=== PATIENT | female | born 1955 | race African-American/Black ===

== ENCOUNTER 2017-04-01 11:36 | Inpatient (IN) | payer OTHER ==
[2017-04-01 17:08] VITALS: BMI 23.6
--- NOTE | 2017-04-01 17:36 | HP ---
CIWA Score - CIWA Score Nausea/Vomitin-No Nausea/No Vomiting Muscle Tremors: 4-Moderate,w/Arms Extend Anxiety: 4-Mod. Anxious/Guarded Agitation: 4-Moderately Restless Paroxysmal Sweats: 1-Minimal Palms Moist Orientation: 0-Oriented Tacttile Disturbances: 3-Moderate Itch/Numb/Burn Auditory Disturbances: 0-None Visual Disturbances: 0-None Headache: 2-Mild CIWA-Ar Total Score: 18 Admission ROS S - HPI Chief Complaint: ALCOHOL WITHDRAWAL SX Allergies/Adverse Reactions: Allergies Allergy/AdvReac Type Severity Reaction Status Date / Time azithromycin [From Zithromax] AdvReac Severe Verified 04/01/17 17:10 erythromycin base AdvReac Severe Vomiting Verified 10/07/14 19:28 History of Present Illness: 61 Y/O AA/FEMALE WITH A HX OF ALCOHOL AND COCAINE DEPENDENCE SEEKING DETOX [place]. Exam Limitations: No Limitations - Ebola screening Have you traveled outside of the country in the last 21 days: No Have you had contact with anyone from an Ebola affected area: No Have you been sick,other than usual withdrawal symptoms: No - Review of Systems Constitutional: Chills, Loss of Appetite, Night Sweats, Changes in sleep, Unintentional Wgt. Loss EENT: reports: Blurred Vision (WEARS GLASSES), Tearing, Nose Congestion, Dental Problems (WEARS DENTURES) Respiratory: reports: No Symptoms reported Cardiac: reports: Chest Pain ("USING TOO MUCH DRUGS"), Other (REPORTS HX SYSTOLIC MURMUR) GI: reports: Constipated, Diarrhea, Nausea, Poor Fluid Intake, Vomiting, Abdominal cramping : reports: No Symptoms Reported Musculoskeletal: reports: Back Pain, Joint Pain, Muscle Pain Integumentary: reports: Bruising (FROM FALLING DOWN IN THE PAST) Neuro: reports: Tremors, Unsteady Gait Endocrine: reports: No Symptoms Reported Hematology: reports: Anemia ("I'M BORDERLINE ANEMIC".) Psychiatric: reports: Orientated x3, Depressed Other Systems: Reviewed and Negative Patient History - Patient Medical History Hx Anemia: Yes Hx Asthma: No Hx Chronic Obstructive Pulmonary Disease (COPD): No Hx Cancer: No Hx Cardiac Disorders: No Hx Congestive Heart Failure: No Hx Hypertension: No Hx Hypercholesterolemia: No Hx Pacemaker: No HX Cerebrovascular Accident: No Hx Seizures: No Hx Dementia: No Hx Diabetes: No Hx Gastrointestinal Disorders: No Hx Liver Disease: No Hx Genitourinary Disorders: No Hx Sexually Transmitted Disorders: Yes (GONORRHEA, SYPHILIS, GENITAL HERPES AND HPV HX) Hx Renal Disease (ESRD): No Hx Thyroid Disease: No Hx Human Immunodeficiency Virus (HIV): Yes (since 1998-[place]) Hx Hepatitis C: No Hx Depression: No Hx Suicide Attempt: No Hx Bipolar Disorder: No Hx Schizophrenia: No - Patient Surgical History Past Surgical History: Yes Hx Neurologic Surgery: No Hx Cataract Extraction: No Hx Cardiac Surgery: No Hx Lung Surgery: No Hx Breast Surgery: No Hx Breast Biopsy: No Hx Abdominal Surgery: No Hx Appendectomy: No Hx Cholecystectomy: Yes (cholecystectomy at age 3 months) Hx Genitourinary Surgery: No Hx Section: No Hx Orthopedic Surgery: No Anesthesia Reaction: No - PPD History Previous Implant?: Yes Documented Results: Positive w/o proof Implanted On Prior [facility] Admission?: No Results: CXR TBD PPD to be Administered?: No - Reproductive History Patient is a Female of Child Bearing Age (11 -55 yrs old): Yes LMP comment: AT 56 YRS OLD Patient : No - Smoking Cessation Smoking history: Current some day smoker Have you smoked in the past 12 months: Yes Aproximately how many cigarettes per day: 10 Cigars Per Day: 0 Hx Chewing Tobacco Use: No Initiated information on smoking cessation: Yes 'Breaking Loose' booklet given: 04/01/17 - Substance & Tx. History Hx Alcohol Use: Yes (COGNAC/BEER) Hx Substance Use: Yes (COCAINE) Substance Use Type: Alcohol, Cocaine Hx Substance Use Treatment: Yes (LAST TX AT [facility] - Substances Abused Alcohol Route: Oral Frequency: Daily Amount used: 2 6pks beer/ 1 pint Age of first use: 10 Date of Last Use: 04/01/17 Cocaine Route: Smoking Frequency: 1-2 times per week Amount used: $200 Age of first use: 46 Date of Last Use: 04/01/17 Family Disease History - Family Disease History Family Disease History: Other: Father (alcohol,), Brother (alcohol), Sister (alcohol,) Admission Physical Exam [facility] - Vital Signs Vital Signs: Vital Signs - 24 hr 04/01/17 17:05 Temperature 97.4 F L Pulse Rate 76 Respiratory 20 Rate Blood Pressure 119/62 - Physical General Appearance: Yes: Irritable, Anxious HEENTM: Yes: EOMI, Normocephalic, YAHIR, Pharynx Normal Respiratory: Yes: Chest Non-Tender, Lungs Clear, Normal Breath Sounds, No Respiratory Distress Neck: Yes: No masses,lesions,Nodules, Supple, Trachea in good position Breast: Yes: Breast Exam Deferred Cardiology: Yes: Regular Rhythm, Regular Rate, S1, S2 Abdominal: Yes: Normal Bowel Sounds, Non Tender, Soft Genitourinary: Yes: Other Back: Yes: Within Normal Limits Musculoskeletal: Yes: full range of Motion, Gait Steady Extremities: Yes: Normal Range of Motion, Non-Tender, Tremors 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, Fully Oriented, Alert Integumentary: Yes: Dry, Warm Lymphatic: Yes: Within Normal Limits - Diagnostic (1) Nicotine dependence Current Visit: Yes Status: Acute Qualifiers: Nicotine product type: cigarettes Substance use status: in withdrawal Qualified Code(s): F17.213 - Nicotine dependence, cigarettes, with withdrawal (2) history of genital herpes Current Visit: Yes Status: Chronic (3) Alcohol dependence with uncomplicated withdrawal Current Visit: Yes Status: Acute (4) Cocaine dependence, uncomplicated Current Visit: Yes Status: Acute (5) HIV (human immunodeficiency virus infection) Current Visit: Yes Status: Chronic (6) History of anemia Current Visit: Yes Status: Suspected Cleared for Admission [facility] - Detox or Rehab [facility] Level of Care: Medically Managed Detox Regimen/Protocol: Librium [facility] Breath Alcohol Content Breath Alcohol Content: 0 Urine Pregancy Test - Result Urine Test Results: Negative- NO Line Present Urine Drug Screen - Results Drug Screen Negative: No Urine Drug Screen Results: JELANI-Cocaine
[2017-04-01] MEDS ORDERED: NICOTINE POLACRILEX 2 MG GUM BC PRN (17:45)
[2017-04-01] MEDS ORDERED: MENTHOL/PHENOL 1 EACH UD MM PRN (17:45)
[2017-04-01] MEDS ORDERED: LOPERAMIDE HCL 2 MG CAPSULE PO PRN (17:45)
[2017-04-01] MEDS ORDERED: ACETAMINOPHEN 325 MG TABLET (FP) PO PRN (17:45)
[2017-04-01] MEDS ORDERED: MAG HYDROX/AL HYDROX/SIMETH 30 ML UNIT-DOSE CUP PO PRN (17:45)
[2017-04-01] MEDS ORDERED: P-EPHED 60MG/TRIPROLIDI 2.5MG TABLET PO PRN (17:45)
[2017-04-01] MEDS ORDERED: MAGNESIUM HYDROX 2400MG/30ML ORAL SUSPENSION 30 ML CUP PO PRN (17:45)
[2017-04-01] MEDS ORDERED: MAGNESIUM CITRATE 300 ML BOTTLE PO PRN (17:45)
[2017-04-01] MEDS ORDERED: chlordiazePOXIDE HCL 25 MG CAPSULE PO PRN (17:45)
[2017-04-01] MEDS ORDERED: guaiFENesin/D-METHORPHAN HB 10 ML UNIT-DOSE CUPS PO PRN (17:45)
[2017-04-01] MEDS ORDERED: IBUPROFEN 400 MG TABLET (FP) PO PRN (17:45)
[2017-04-01] MEDS: NICOTINE 14 MG/24 HOURS TOPICAL PATCH TD SCH (18:58)
[2017-04-01] MEDS ORDERED: chlordiazePOXIDE HCL 25 MG CAPSULE PO ONE (19:00)
[2017-04-01] MEDS: THIAMINE HCL 100 MG TABLET (FP) PO SCH (22:25)
[2017-04-01] MEDS: chlordiazePOXIDE HCL 25 MG CAPSULE PO SCH (22:26)
[2017-04-02] MEDS: chlordiazePOXIDE HCL 25 MG CAPSULE PO SCH ×4 (05:43→22:24)
[2017-04-02 09:54] LABS: HEMATOCRIT 38.4 % (32.4-45.2); HEMOGLOBIN 12.2 GM/dL (10.7-15.3); MCH 29.7 pg (25.7-33.7); MCHC 31.9 g/dl (32.0-36.0); MEAN PLT VOLUME 9.2 fl (7.5-11.1); PLATELET COUNT 248 K/MM3 (134-434); RBC 4.13 M/mm3 (3.60-5.2); WHITE BLOOD COUNT 3.4 K/mm3 (4.0-10.0)
[2017-04-02 10:06] LABS: CHLORIDE 106 mmol/L (98-107); POTASSIUM 3.8 mmol/L (3.5-5.1); SODIUM 142 mmol/L (136-145)
[2017-04-02] MEDS: valACYclovir HCL 500 MG TABLET (FP) PO SCH (10:35)
[2017-04-02] MEDS: PRENATAL VITAMINS W/ FOLIC ACID TABLET (FP) PO SCH (10:35)
[2017-04-02 10:37] LABS: ALK PHOS 81 U/L (45-117); ANION GAP 8 (8-16); BILIRUBIN,TOTAL 0.7 mg/dL (0.2-1.0); BLOOD UREA NITROGEN 16 mg/dL (7-18); CALCIUM 8.6 mg/dL (8.5-10.1); CO2 28 mmol/L (21-32); GLUCOSE,RANDOM 138 mg/dL (74-106); SGOT/AST 14 U/L (15-37); SGPT/ALT 18 U/L (12-78); TOT PROT 6.5 g/dl (6.4-8.2)
[2017-04-02] MEDS: NICOTINE 14 MG/24 HOURS TOPICAL PATCH TD SCH (10:37)
--- NOTE | 2017-04-02 10:56 | PN ---
S CIWA - CIWA Score Nausea/Vomitin-No Nausea/No Vomiting Muscle Tremors: 4-Moderate,w/Arms Extend Anxiety: 3 Agitation: 3 Paroxysmal Sweats: 3 Orientation: 0-Oriented Tacttile Disturbances: 0-None Auditory Disturbances: 0-None Visual Disturbances: 0-None Headache: 1-Very Mild CIWA-Ar Total Score: 14 S Progress Note (SOAP) Subjective: body aches sweats shakes interrupted sleep body aches irritable sore Objective: 04/02/17 10:55 Vital Signs Temperature 97.9 F 04/02/17 09:49 Pulse Rate 79 04/02/17 09:49 Respiratory Rate 20 04/02/17 09:49 Blood Pressure 103/59 04/02/17 09:49 O2 Sat by Pulse Oximetry (%) Laboratory Tests 04/02/17 04/02/17 07:00 07:00 WBC 3.4 L RBC 4.13 Hgb 12.2 Hct 38.4 MCV 93.0 MCH 29.7 MCHC 31.9 L RDW 14.0 Plt Count 248 D MPV 9.2 Sodium 142 Potassium 3.8 Chloride 106 Carbon Dioxide 28 Anion Gap 8 BUN 16 Creatinine 1.0 Creat Clearance w eGFR 56.00 Random Glucose 138 H Calcium 8.6 Total Bilirubin 0.7 D AST 14 L D ALT 18 D Alkaline Phosphatase 81 D Total Protein 6.5 Albumin 3.0 L labs pending aaox3 ambulating no acute distress Assessment: 04/02/17 10:56 withdrawal sx Plan: increase fluids continue medication mycelex troches throat lozenges labs pending
[2017-04-02] MEDS ORDERED: FLU VACCINE QUAD 60 MCG/0.5 ML (MDV 17-18) IM ONE (12:00)
[2017-04-02] MEDS ORDERED: PNEUMOC 13-VAL CONJ-DIP CRM/PF 0.5 ML DISP.SYRIN IM ONE (12:00)
[2017-04-02 13:18] LABS: URINE APPEARANCE CLOUDY; URINE BILIRUBIN NEGATIVE (NEGATIVE); URINE BLOOD NEGATIVE (NEGATIVE); URINE COLOR DKYELLOW; URINE GLUCOSE (UA) NEGATIVE (NEGATIVE); URINE KETONE NEGATIVE (NEGATIVE); URINE LEUK ESTERASE NEGATIVE (NEGATIVE); URINE NITRITE POSITIVE (NEGATIVE); URINE PROTEIN NEGATIVE (NEGATIVE)
[2017-04-02 13:35] LABS: EPI CELLS MODERATE /HPF (FEW); URINE BACTERIA MANY /hpf (NONE SEEN); URINE MUCUS RARE; YEAST FEW
--- NOTE | 2017-04-02 14:30 | EKG ---
Test Reason : Blood Pressure : / mmHG Vent. Rate : 069 BPM Atrial Rate : 069 BPM P-R Int : 178 ms QRS Dur : 080 ms QT Int : 426 ms P-R-T Axes : 079 070 066 degrees QTc Int : 456 ms NORMAL SINUS RHYTHM NORMAL ECG NO PREVIOUS ECGS AVAILABLE Confirmed by MIGUEL DIAZ, SAMARA ([id number]) on 04/02/2017 2:30:38 PM Referred By: Confirmed By:SAMARA RIVERA MD
[2017-04-02] MEDS: CLOTRIMAZOLE 10 MG TROCHE (FP) PO SCH ×3 (14:48→22:24)
[2017-04-02] MEDS: THIAMINE HCL 100 MG TABLET (FP) PO SCH (22:24)
[2017-04-03] MEDS: chlordiazePOXIDE HCL 25 MG CAPSULE PO SCH ×3 (06:23→17:53)
[2017-04-03] MEDS: CLOTRIMAZOLE 10 MG TROCHE (FP) PO SCH ×5 (07:07→22:35)
[2017-04-03] MEDS: valACYclovir HCL 500 MG TABLET (FP) PO SCH (10:42)
[2017-04-03] MEDS: PRENATAL VITAMINS W/ FOLIC ACID TABLET (FP) PO SCH (10:42)
[2017-04-03] MEDS: NICOTINE 14 MG/24 HOURS TOPICAL PATCH TD SCH (10:43)
[2017-04-03] MEDS ORDERED: LIDOCAINE VISCOUS 2% ORAL/TOP 20 ML UNIT-DOSE CUP MM PRN (12:27)
--- NOTE | 2017-04-03 12:27 | PN ---
[facility] CIWA - CIWA Score Nausea/Vomitin Muscle Tremors: 2 Anxiety: 3 Agitation: 2 Paroxysmal Sweats: 3 Orientation: 0-Oriented Tacttile Disturbances: 2-Mild Itch/Numbness/Burn Auditory Disturbances: 0-None Visual Disturbances: 0-None Headache: 0-None Present CIWA-Ar Total Score: 14 [facility] Progress Note (SOAP) Subjective: interrupted sleep, sweats, diarrhea, sorethroat Objective: 04/03/17 12:25 Vital Signs Temperature 98.1 F 04/03/17 09:48 Pulse Rate 87 04/03/17 09:48 Respiratory Rate 18 04/03/17 09:48 Blood Pressure 108/70 04/03/17 09:48 O2 Sat by Pulse Oximetry (%) Laboratory Tests 04/01/17 04/02/17 04/02/17 11:40 07:00 07:00 WBC 3.4 L RBC 4.13 Hgb 12.2 Hct 38.4 MCV 93.0 MCH 29.7 MCHC 31.9 L RDW 14.0 Plt Count 248 D MPV 9.2 Sodium 142 Potassium 3.8 Chloride 106 Carbon Dioxide 28 Anion Gap 8 BUN 16 Creatinine 1.0 Creat Clearance w eGFR 56.00 Random Glucose 138 H Calcium 8.6 Total Bilirubin 0.7 D AST 14 L D ALT 18 D Alkaline Phosphatase 81 D Total Protein 6.5 Albumin 3.0 L Urine Color Dkyellow Urine Appearance Cloudy Urine pH 5.0 Ur Specific [place] 1.019 Urine Protein Negative Urine Glucose (UA) Negative Urine Ketones Negative Urine Blood Negative Urine Nitrite Positive Urine Bilirubin Negative Urine Urobilinogen 2.0 H Ur Leukocyte Esterase Negative Urine WBC (Auto) <1 Urine RBC (Auto) 3 Ur Epithelial Cells Moderate Urine Bacteria Many Urine Mucus Rare Urine Yeast Few RPR Titer 04/02/17 07:00 WBC RBC Hgb Hct MCV MCH MCHC RDW Plt Count MPV Sodium Potassium Chloride Carbon Dioxide Anion Gap BUN Creatinine Creat Clearance w eGFR Random Glucose Calcium Total Bilirubin AST ALT Alkaline Phosphatase Total Protein Albumin Urine Color Urine Appearance Urine pH Ur Specific [place] Urine Protein Urine Glucose (UA) Urine Ketones Urine Blood Urine Nitrite Urine Bilirubin Urine Urobilinogen Ur Leukocyte Esterase Urine WBC (Auto) Urine RBC (Auto) Ur Epithelial Cells Urine Bacteria Urine Mucus Urine Yeast RPR Titer Nonreactive pt aox3 in nad ambulating oral mild erythema , no exudates Assessment: 04/03/17 12:26 withdrawal sx's sorethroat Plan: cont. detox increase fluids viscous lidocaine
[2017-04-03] MEDS: THIAMINE HCL 100 MG TABLET (FP) PO SCH (22:36)
[2017-04-03] MEDS: chlordiazePOXIDE 5 MG CAPSULE PO SCH (22:36)
[2017-04-04] MEDS: chlordiazePOXIDE 5 MG CAPSULE PO SCH ×3 (06:19→17:46)
[2017-04-04] MEDS: CLOTRIMAZOLE 10 MG TROCHE (FP) PO SCH ×5 (06:20→22:33)
--- NOTE | 2017-04-04 09:37 | PN ---
[facility] Progress Note (SOAP) Subjective: nasuea, sweats, interrupetd sleep, anxiety, slight tremor - requesting rehabat [facility] tomorrow when discharged Objective: 04/04/17 09:35 Vital Signs - 24 hr 04/03/17 04/03/17 04/03/17 09:48 13:35 17:36 Temperature 98.1 F 97.3 F L 98.6 F Pulse Rate 87 87 878 H Respiratory 18 18 18 Rate Blood Pressure 108/70 115/64 105/50 04/03/17 04/04/17 04/04/17 22:07 00:30 03:30 Temperature 97.9 F Pulse Rate 88 Respiratory 18 18 18 Rate Blood Pressure 117/86 04/04/17 06:24 Temperature 97.9 F Pulse Rate 89 Respiratory 18 Rate Blood Pressure 108/71 Laboratory Tests 04/01/17 04/02/17 04/02/17 11:40 07:00 07:00 WBC 3.4 L RBC 4.13 Hgb 12.2 Hct 38.4 MCV 93.0 MCH 29.7 MCHC 31.9 L RDW 14.0 Plt Count 248 D MPV 9.2 Sodium 142 Potassium 3.8 Chloride 106 Carbon Dioxide 28 Anion Gap 8 BUN 16 Creatinine 1.0 Creat Clearance w eGFR 56.00 Random Glucose 138 H Calcium 8.6 Total Bilirubin 0.7 D AST 14 L D ALT 18 D Alkaline Phosphatase 81 D Total Protein 6.5 Albumin 3.0 L Urine Color Dkyellow Urine Appearance Cloudy Urine pH 5.0 Ur Specific [place] 1.019 Urine Protein Negative Urine Glucose (UA) Negative Urine Ketones Negative Urine Blood Negative Urine Nitrite Positive Urine Bilirubin Negative Urine Urobilinogen 2.0 H Ur Leukocyte Esterase Negative Urine WBC (Auto) <1 Urine RBC (Auto) 3 Ur Epithelial Cells Moderate Urine Bacteria Many Urine Mucus Rare Urine Yeast Few RPR Titer 04/02/17 07:00 WBC RBC Hgb Hct MCV MCH MCHC RDW Plt Count MPV Sodium Potassium Chloride Carbon Dioxide Anion Gap BUN Creatinine Creat Clearance w eGFR Random Glucose Calcium Total Bilirubin AST ALT Alkaline Phosphatase Total Protein Albumin Urine Color Urine Appearance Urine pH Ur Specific [place] Urine Protein Urine Glucose (UA) Urine Ketones Urine Blood Urine Nitrite Urine Bilirubin Urine Urobilinogen Ur Leukocyte Esterase Urine WBC (Auto) Urine RBC (Auto) Ur Epithelial Cells Urine Bacteria Urine Mucus Urine Yeast RPR Titer Nonreactive Assessment: 04/04/17 09:36 withdrawal sx, low alb /malnourished 2/2 substance use and chronic disease, fluids, ensure cont detox, if bed is nto available in rehab we can keep her an additional day until bed available fo observation after detox is completed.
[2017-04-04] MEDS: PRENATAL VITAMINS W/ FOLIC ACID TABLET (FP) PO SCH (10:28)
[2017-04-04] MEDS: valACYclovir HCL 500 MG TABLET (FP) PO SCH (10:28)
[2017-04-04] MEDS: NICOTINE 14 MG/24 HOURS TOPICAL PATCH TD SCH (10:28)
[2017-04-04] MEDS ORDERED: SIMETHICONE 80 MG TAB.CHEW (FP) PO PRN (17:41)
--- NOTE | 2017-04-04 17:44 | PN ---
[facility] Progress Note Note: received nurse call that the patient has gas gas xl
[2017-04-04] MEDS: THIAMINE HCL 100 MG TABLET (FP) PO SCH (22:33)
[2017-04-04] MEDS: chlordiazePOXIDE HCL 10 MG CAPSULE PO SCH (22:33)
[2017-04-04] MEDS: RANITIDINE HCL 150 MG TABLET (FP) PO SCH (22:33)
[2017-04-05] MEDS: chlordiazePOXIDE HCL 10 MG CAPSULE PO SCH ×2 (05:20→10:58)
[2017-04-05] MEDS: CLOTRIMAZOLE 10 MG TROCHE (FP) PO SCH ×2 (05:30→10:58)
--- NOTE | 2017-04-05 09:30 | DS ---
[facility] Detox Discharge Summary Admission Date: 04/01/17 Discharge Date: 04/05/17 - History Present History: Alcohol Dependence, Cocaine Dependence Additional Comments: follow up with after care program as arrangement Pertinent Past History: hiv nicotine dependence history of anemia history of genital herpes - Physical Exam Results Vital Signs: Vital Signs Temperature 97.7 F 04/05/17 06:55 Pulse Rate 71 04/05/17 06:55 Respiratory Rate 16 04/05/17 06:55 Blood Pressure 91/54 04/05/17 06:55 O2 Sat by Pulse Oximetry (%) Pertinent Admission Physical Exam Findings: withdrawal symptom - Treatment Hospital Course: Detox Protocol Followed, Detoxed Safely, Responded well, Discharged Condition Good, Rehab Referral Accepted Patient has Accepted a Rehab Referral to: [facility] - Medication Discharge Medications: Ambulatory Orders Emtricitab/Rilpiviri/Tenof Ala [Odefsey Tablet] 1 each PO DAILY 04/01/17 Valacyclovir HCl [Valtrex -] 500 mg PO DAILY 04/01/17 - Diagnosis (1) Alcohol dependence with uncomplicated withdrawal Current Visit: Yes Status: Acute (2) Cocaine dependence, uncomplicated Current Visit: Yes Status: Acute (3) Nicotine dependence Current Visit: Yes Status: Acute Qualifiers: Nicotine product type: cigarettes Substance use status: in withdrawal Qualified Code(s): F17.213 - Nicotine dependence, cigarettes, with withdrawal (4) HIV (human immunodeficiency virus infection) Current Visit: Yes Status: Chronic (5) history of genital herpes Current Visit: Yes Status: Chronic (6) History of anemia Current Visit: Yes Status: Suspected (7) Weight decreased Current Visit: No Status: Active - AMA Did Patient Leave Against Medical Advice: No
[2017-04-05 10:06] VITALS: BP 97/62; PULSE 74; TEMP 98.2
[2017-04-05] MEDS: RANITIDINE HCL 150 MG TABLET (FP) PO SCH (10:57)
[2017-04-05] MEDS: valACYclovir HCL 500 MG TABLET (FP) PO SCH (10:57)
[2017-04-05] MEDS: NICOTINE 14 MG/24 HOURS TOPICAL PATCH TD SCH (10:58)
[2017-04-05] MEDS: PRENATAL VITAMINS W/ FOLIC ACID TABLET (FP) PO SCH (10:58)
== END 2017-04-05 11:06 | disposition home or self-care (01) | DRG 774 ==
LOC: YASAS 11:36 → Y6N 17:55
PROVIDERS: ADMIT Internal Medicine; ATTEND Internal Medicine
PROC: HZ2ZZZZ Detoxification Services for Substance Abuse Treatment (ICD-10-PCS; principal; 2017-04-01)
DX: F10.230 Alcohol dependence with withdrawal, uncomplicated (principal); F14.20 Cocaine dependence, uncomplicated; Z21 Asymptomatic human immunodeficiency virus [HIV] infection status; R63.4 Abnormal weight loss; Z68.23 Body mass index [BMI] 23.0-23.9, adult; Z87.42 Personal history of other diseases of the female genital tract; Z86.2 Personal history of diseases of the blood and blood-forming organs and certain disorders involving the immune mechanism
CPT/HCPCS: 36415; 71020-TC; 80053; 81003; 81015; 85027; 86593; 90670; 90688; 93005; 93010; G0008; G0009

== ENCOUNTER 2018-12-03 11:04 | Inpatient (IN) | payer OTHER ==
[2018-12-03 12:33] VITALS: BMI 25.2
--- NOTE | 2018-12-03 13:53 | HP ---
"CIWA Score Nausea/Vomitin-No Nausea/No Vomiting Muscle Tremors: 4-Moderate,w/Arms Extend Anxiety: 3 Agitation: 4-Moderately Restless Paroxysmal Sweats: 3 (Increased facial moisture) Orientation: 0-Oriented Tacttile Disturbances: 0-None Auditory Disturbances: 0-None Visual Disturbances: 0-None Headache: 0-None Present CIWA-Ar Total Score: 14 - Admission Criteria OAS Guidelines: Admission for Medically Managed Detox: Requires at least one of the followin. CIWA greater than 12 2. Seizures within the past 24 hours 3. Delirium tremens within the past 24 hours 4. Hallucinations within the past 24 hours 5. Acute intervention needed for co occurring medical disorder 6. Acute intervention needed for co occurring psychiatric disorder 7. Severe withdrawal that cannot be handled at a lower level of care (continued vomiting, continued diarrhea, abnormal vital signs) requiring intravenous medication and/or fluids 8. Patient presents the following: CIWA greater than 12 Admission Criteria Met: Admission criteria met Admission ROS [facility] Chief Complaint: Having alcohol withdrawal. Allergies/Adverse Reactions: Allergies Allergy/AdvReac Type Severity Reaction Status Date / Time azithromycin [From Zithromax] AdvReac Severe Vomiting Verified 12/03/18 12:23 erythromycin base AdvReac Severe Vomiting Verified 12/03/18 12:23 History of Present Illness: 63 yo presents w/alcohol withdrawal symptoms seeking detox. ERON: 0 UTox: + THC/JELANI Alcohol use since age 10. Use escalated at age 44. States current amt x years. 2 pints vodka+ beer Cocaine/Crack use since age 44. Currently using approx $200 daily. Marijuana use since age 10. Does not use every day. Nicotine use since age 10. States only smokes when uses drugs. Smoke up to 1 PPD. Declines nicotine patch or gum. Longest sobriety 2.5 years - while in an in-patient setting. Denies hx seizures, blackouts, overdoses. PMHx: HIV+; Genital Herpes MHHx: Anxiety. Denies depression. Denies thoughts of harming self or others. Patient Name: Caesar Prater Date: 1955 Address: [address] [place] [address] Sex: Female Rx Written Rx Dispensed Drug Quantity Days Supply Prescriber Name 08/12/2018 08/12/2018 oxycodone hcl 5 mg tablet 30 5 Di Prato, Alix Search Terms: Caesar Akers, 1955 Search Date: 12/03/2018 01:50:14 PM States Searched: [place], [place], [place], [place], [place], [place] The Drug Utilization Report below displays the controlled substance prescriptions, if any, that were dispensed in the indicated state(s). The information displayed on this report is compiled from requests submitted to other states' PMPs, and accurately reflects the information as returned by them. Blank parr indicate data not provided by other state. This report was requested by: Karolina Mcgee | Reference #: [id number] Exam Limitations: No Limitations - Ebola screening Have you traveled outside of the country in the last 21 days: No Have you had contact with anyone from an Ebola affected area: No Have you been sick,other than usual withdrawal symptoms: No (Denies recent exposure to measles) Do you have a fever: No - Review of Systems Constitutional: Chills, Diaphoresis, Unintentional Wgt. Loss EENT: reports: Blurred Vision, Dental Problems (Dentures. Chews and swallows ok) Respiratory: reports: No Symptoms reported Cardiac: reports: No Symptoms Reported GI: reports: No Symptoms Reported : reports: No Symptoms Reported Integumentary: reports: No Symptoms Reported Neuro: reports: Tremors Endocrine: reports: No Symptoms Reported Hematology: reports: Anemia, Other (HIV (+). Currently on medications) Psychiatric: reports: Judgement Intact, Orientated x3, Anxious Patient History - Patient Medical History Hx Anemia: Yes Hx Asthma: No Hx Chronic Obstructive Pulmonary Disease (COPD): No Hx Cancer: No Hx Cardiac Disorders: No Hx Congestive Heart Failure: No Hx Hypertension: No Hx Hypercholesterolemia: No Hx Pacemaker: No HX Cerebrovascular Accident: No Hx Seizures: No Hx Dementia: No Hx Diabetes: No Hx Gastrointestinal Disorders: No Hx Liver Disease: No Hx Genitourinary Disorders: No Hx Sexually Transmitted Disorders: Yes (GONORRHEA, SYPHILIS, GENITAL HERPES AND HPV HX) Hx Renal Disease (ESRD): No Hx Thyroid Disease: No Hx Human Immunodeficiency Virus (HIV): Yes (since 1998[place] [facility] [place] Hx Hepatitis C: No Hx Depression: No Hx Suicide Attempt: No Hx Bipolar Disorder: No Hx Schizophrenia: No - Patient Surgical History Past Surgical History: Yes Hx Neurologic Surgery: No Hx Cataract Extraction: No Hx Cardiac Surgery: No Hx Lung Surgery: No Hx Breast Surgery: No Hx Breast Biopsy: No Hx Abdominal Surgery: No Hx Appendectomy: No Hx Cholecystectomy: Yes (cholecystectomy at age 3 months) Hx Genitourinary Surgery: No Hx Section: No Hx Orthopedic Surgery: No Anesthesia Reaction: No - PPD History Previous Implant?: Yes (Will order TB Gold test) Documented Results: Negative w/o proof Implanted On Prior R Admission?: No Results: CXR TBD PPD to be Administered?: No - Smoking Cessation Smoking history: Current some day smoker Have you smoked in the past 12 months: Yes Aproximately how many cigarettes per day: 10 Cigars Per Day: 0 Hx Chewing Tobacco Use: No Initiated information on smoking cessation: Yes 'Breaking Loose' booklet given: 12/03/18 - Substance & Tx. History Hx Alcohol Use: Yes Hx Substance Use: Yes Substance Use Type: Alcohol, Cocaine, Marijuana Hx Substance Use Treatment: Yes (detox, rehab) - Substances abused Alcohol Substance route: Oral Frequency: Daily Amount used: 3 6 packs of beer and 2 pints of vodka Age of first use: 10 Date of last use: 12/03/18 Crack Substance route: Smoking Frequency: Daily Amount used: $200 daily Age of first use: 44 Date of last use: 12/03/18 Family Disease History - Family Disease History Family Disease History: Other: Father (alcohol,), Brother (alcohol), Sister (alcohol,) Admission Physical Exam B[facility] - Vital Signs Vital Signs: Vital Signs - 24 hr 12/03/18 12:19 Temperature 97.0 F L Pulse Rate 74 Respiratory 18 Rate Blood Pressure 116/72 - Physical General Appearance: Yes: Nourished, Mild Distress, Tremorous, Sweating ( Increased facial moisture) HEENTM: Yes: EOMI, Hearing grossly Normal, Normocephalic, Normal Voice, YAHIR, Pharynx Normal Respiratory: Yes: Lungs Clear, Normal Breath Sounds, No Respiratory Distress Neck: Yes: No masses,lesions,Nodules, Supple Breast: Yes: Breast Exam Deferred Cardiology: Yes: Regular Rhythm, Regular Rate (HR: 64), S1, S2 Abdominal: Yes: Non Tender, Flat, Soft, Increased Bowel Sounds Genitourinary: Yes: Within Normal Limits Back: Yes: Normal Inspection Musculoskeletal: Yes: full range of Motion, Gait Steady Extremities: Yes: Normal Capillary Refill, Tremors (Gross tremors w/ arms elevated) 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, Fully Oriented, Alert, Motor Strength 5/5, Normal Response Integumentary: Yes: Normal Color, Warm, Diaphoresis (Increased facial moisture) Lymphatic: Yes: Within Normal Limits - Diagnostic (1) Alcohol dependence with uncomplicated withdrawal Current Visit: Yes Status: Acute (2) Cocaine dependence, uncomplicated Current Visit: Yes Status: Chronic (3) Nicotine dependence Current Visit: Yes Status: Chronic Qualifiers: Nicotine product type: cigarettes Substance use status: uncomplicated Qualified Code(s): F17.210 - Nicotine dependence, cigarettes, uncomplicated (4) HIV + Current Visit: Yes Status: Chronic (5) history of genital herpes Current Visit: Yes Status: Chronic [facility] Level of Care: Medically Managed Detox Regimen/Protocol: Librium Claeared for Rehab Admission: No Inpatient Rehab Admission - Rehab Decision to Admit Inpatient rehab admission?: No"
[2018-12-03] MEDS ORDERED: MENTHOL/PHENOL 1 EACH UD MM PRN (14:08)
[2018-12-03] MEDS ORDERED: IBUPROFEN 400 MG TABLET (FP) PO PRN (14:08)
[2018-12-03] MEDS ORDERED: MAGNESIUM HYDROX 2400MG/30ML ORAL SUSPENSION 30 ML CUP PO PRN (14:08)
[2018-12-03] MEDS ORDERED: chlordiazePOXIDE HCL 25 MG CAPSULE PO PRN (14:08)
[2018-12-03] MEDS ORDERED: BISMUTH SUBSALICYLATE 262 MG/15 ML BTL PO PRN (14:08)
[2018-12-03] MEDS ORDERED: MAG HYDROX/AL HYDROX/SIMETH 30 ML UNIT-DOSE CUP PO PRN (14:08)
[2018-12-03] MEDS ORDERED: MAGNESIUM CITRATE 300 ML BOTTLE PO PRN (14:08)
[2018-12-03] MEDS ORDERED: ACETAMINOPHEN 325 MG TABLET (FP) PO PRN ×2 (14:08)
[2018-12-03] MEDS ORDERED: chlordiazePOXIDE HCL 25 MG CAPSULE PO ONE (15:05)
--- NOTE | 2018-12-03 16:04 | EKG ---
Test Reason : Blood Pressure : / mmHG Vent. Rate : 060 BPM Atrial Rate : 060 BPM P-R Int : 188 ms QRS Dur : 082 ms QT Int : 460 ms P-R-T Axes : 076 066 068 degrees QTc Int : 460 ms NORMAL SINUS RHYTHM NORMAL ECG WHEN COMPARED WITH ECG OF 01-APR-2017 19:04, NO SIGNIFICANT CHANGE WAS FOUND Confirmed by SAMARA RIVERA MD ([id number]) on 12/03/2018 4:03:25 PM Referred By: Confirmed By:SAMARA RIVERA MD
[2018-12-03] MEDS: chlordiazePOXIDE HCL 25 MG CAPSULE PO SCH ×2 (18:11→22:36)
[2018-12-03] MEDS: MELATONIN 5 MG TABLETS PO PRN (22:36)
[2018-12-03] MEDS: THIAMINE HCL 100 MG TABLET (FP) PO SCH (22:36)
[2018-12-04] MEDS: chlordiazePOXIDE HCL 25 MG CAPSULE PO SCH ×4 (06:17→22:30)
[2018-12-04] MEDS ORDERED: PETROLATUM, WHITE 30 GM TUBE TP SCH (10:00)
[2018-12-04 10:09] LABS: HEMATOCRIT 42.7 % (32.4-45.2); HEMOGLOBIN 13.7 GM/dL (10.7-15.3); MCH 30.1 pg (25.7-33.7); MEAN CELL VOLUME 94.2 fl (80-96); MEAN PLT VOLUME 8.8 fl (7.5-11.1); PLATELET COUNT 193 K/MM3 (134-434); RBC 4.53 M/mm3 (3.60-5.2); RDW 14.6 % (11.6-15.6); WHITE BLOOD COUNT 2.8 K/mm3 (4.0-10.0)
[2018-12-04 10:11] LABS: ALBUMIN 3.5 g/dl (3.4-5.0); BILIRUBIN,TOTAL 0.2 mg/dL (0.2-1); BLOOD UREA NITROGEN 22.1 mg/dL (7-18); CALCIUM 9.1 mg/dL (8.5-10.1); POTASSIUM 4.1 mmol/L (3.5-5.1); TOT PROT 7.3 g/dl (6.4-8.2)
[2018-12-04] MEDS: PRENATAL VITAMINS W/ FOLIC ACID TABLET (FP) PO SCH (10:22)
--- NOTE | 2018-12-04 11:37 | PN ---
S CIWA - CIWA Score Nausea/Vomitin-No Nausea/No Vomiting Muscle Tremors: 2 Anxiety: 3 Agitation: 2 Paroxysmal Sweats: 3 Orientation: 0-Oriented Tacttile Disturbances: 0-None Auditory Disturbances: 0-None Visual Disturbances: 0-None Headache: 2-Mild CIWA-Ar Total Score: 12 S Progress Note (SOAP) Subjective: c/o dry skin, sweats, anxiety, headache, and interrupted sleep. Objective: 12/04/18 11:35 Vital Signs 12/04/18 12/04/18 08:29 09:50 Temperature 97 F L 97.2 F L Pulse Rate 72 76 Respiratory 18 18 Rate Blood Pressure 96/64 127/50 L Lab Results WBC 2.8 K/mm3 (4.0-10.0) L 12/04/18 07:00 RBC 4.53 M/mm3 (3.60-5.2) 12/04/18 07:00 Hgb 13.7 GM/dL (10.7-15.3) 12/04/18 07:00 Hct 42.7 % (32.4-45.2) 12/04/18 07:00 MCV 94.2 fl (80-96) 12/04/18 07:00 MCHC 32.0 g/dl (32.0-36.0) 12/04/18 07:00 RDW 14.6 % (11.6-15.6) 12/04/18 07:00 Plt Count 193 K/MM3 (134-434) D 12/04/18 07:00 Sodium 146 mmol/L (136-145) H 12/04/18 07:00 Potassium 4.1 mmol/L (3.5-5.1) 12/04/18 07:00 Chloride 110 mmol/L (98-107) H 12/04/18 07:00 Carbon Dioxide 30 mmol/L (21-32) 12/04/18 07:00 Anion Gap 7 MMOL/L (8-16) L 12/04/18 07:00 BUN 22.1 mg/dL (7-18) H 12/04/18 07:00 Creatinine 1.0 mg/dL (0.55-1.3) 12/04/18 07:00 Random Glucose 103 mg/dL (74-106) 12/04/18 07:00 Calcium 9.1 mg/dL (8.5-10.1) 12/04/18 07:00 Labs noted. Assessment: 12/04/18 11:35 AOX3, in no respiratory distress. Full ROM, ambulating in the unit. withdrawal symptoms. Plan: continue detox. Vitamin A & D ointment application BID.
[2018-12-04] MEDS: VITAMINS A AND D TOPICAL OINTMENT 60 GM TUBE TP SCH ×2 (13:15→22:31)
[2018-12-04] MEDS: MELATONIN 5 MG TABLETS PO PRN (22:30)
[2018-12-04] MEDS: THIAMINE HCL 100 MG TABLET (FP) PO SCH (22:30)
[2018-12-05] MEDS: chlordiazePOXIDE HCL 25 MG CAPSULE PO SCH ×4 (05:14→22:32)
[2018-12-05] MEDS: PRENATAL VITAMINS W/ FOLIC ACID TABLET (FP) PO SCH (10:21)
[2018-12-05] MEDS: VITAMINS A AND D TOPICAL OINTMENT 60 GM TUBE TP SCH ×2 (10:21→22:40)
--- NOTE | 2018-12-05 12:39 | PN ---
S CIWA - CIWA Score Nausea/Vomitin-No Nausea/No Vomiting Muscle Tremors: None Anxiety: 3 Agitation: 2 Paroxysmal Sweats: 3 Orientation: 0-Oriented Tacttile Disturbances: 0-None Auditory Disturbances: 0-None Visual Disturbances: 0-None Headache: 0-None Present CIWA-Ar Total Score: 8 S Progress Note (SOAP) Subjective: c/o sweats, anxiety, and interrupted sleep. Objective: 12/05/18 12:38 Vital Signs 12/05/18 12/05/18 06:00 09:55 Temperature 97.3 F L 97.3 F L Pulse Rate 73 79 Respiratory 18 18 Rate Blood Pressure 129/73 104/60 Lab Results WBC 2.8 K/mm3 (4.0-10.0) L 12/04/18 07:00 RBC 4.53 M/mm3 (3.60-5.2) 12/04/18 07:00 Hgb 13.7 GM/dL (10.7-15.3) 12/04/18 07:00 Hct 42.7 % (32.4-45.2) 12/04/18 07:00 MCV 94.2 fl (80-96) 12/04/18 07:00 MCHC 32.0 g/dl (32.0-36.0) 12/04/18 07:00 RDW 14.6 % (11.6-15.6) 12/04/18 07:00 Plt Count 193 K/MM3 (134-434) D 12/04/18 07:00 Sodium 146 mmol/L (136-145) H 12/04/18 07:00 Potassium 4.1 mmol/L (3.5-5.1) 12/04/18 07:00 Chloride 110 mmol/L (98-107) H 12/04/18 07:00 Carbon Dioxide 30 mmol/L (21-32) 12/04/18 07:00 Anion Gap 7 MMOL/L (8-16) L 12/04/18 07:00 BUN 22.1 mg/dL (7-18) H 12/04/18 07:00 Creatinine 1.0 mg/dL (0.55-1.3) 12/04/18 07:00 Random Glucose 103 mg/dL (74-106) 12/04/18 07:00 Calcium 9.1 mg/dL (8.5-10.1) 12/04/18 07:00 Labs noted. Assessment: 12/05/18 12:38 AOX3, in no acute respiratory distress. Full ROM, ambulating in the unit. Withdrawal symptoms. Plan: continue detox.
[2018-12-05] MEDS: THIAMINE HCL 100 MG TABLET (FP) PO SCH (22:32)
[2018-12-05] MEDS: MELATONIN 5 MG TABLETS PO PRN (22:33)
[2018-12-06] MEDS ORDERED: chlordiazePOXIDE HCL 10 MG CAPSULE PO PRN
--- NOTE | 2018-12-06 05:11 | PN ---
S Progress Note (SOAP) Subjective: Patient fell and is refusing to go to ER for further evaluation. According to the nurse, MsSteve Bandar Hercules, they heard a thud sound, rushed to the room and found the patient on the floor. Patient denies hitting her head on the floor. She reports that she fell on her left side. Patient is complaining of left side pain rated at 4/10. She was admitted with complaint of alcohol dependence and has history of seizures, blackouts, overdoses, HIV+ and Genital Herpes. Vital Signs Temperature 98.1 F 12/06/18 05:30 Pulse Rate 83 12/06/18 05:30 Respiratory Rate 18 12/06/18 05:30 Blood Pressure 108/69 12/06/18 05:30 O2 Sat by Pulse Oximetry (%) PHYSICAL EXAMINATION: CONSTITUTIONAL : Patient is alert, awake, well developed and able to make needs known. She is in no acute distress at this time HEENT: Normocephalic. No swelling, bumps, bruises or any lesion noted. Sclera is white and conjunctiva pink. Pupil seems equally round. Neck is supple. No JVD or bruits heard bilaterally. Patient is breathing normally without effort. No crackles, wheezes, rhonchi, stridor or pleural rub noted NEUROLOGICAL: Patient is alert and oriented to person, place and time. Normal gait noted. Ambulated to her bed. No focal deficits CARDIOVASCULAR: Normal rate and regular rhythm noted. SIS2 normal. Systolic murmur noted. MUSCULOSKELETAL : Patient reports right sided pain rated at 4/10. She is able to move all extremities ACTION: Fall protocol #1 initiated Ibuprofen 400mg tablet oral Q6H prn as needed Ice pack to affected area EKG as ordered
[2018-12-06] MEDS: chlordiazePOXIDE HCL 10 MG CAPSULE PO SCH ×4 (06:39→22:39)
[2018-12-06] MEDS: PRENATAL VITAMINS W/ FOLIC ACID TABLET (FP) PO SCH (10:45)
[2018-12-06] MEDS: VITAMINS A AND D TOPICAL OINTMENT 60 GM TUBE TP SCH ×2 (11:52→22:57)
--- NOTE | 2018-12-06 12:38 | PN ---
S CIWA - CIWA Score Nausea/Vomitin-No Nausea/No Vomiting Muscle Tremors: None Anxiety: 3 Agitation: 0-Normal Activity Paroxysmal Sweats: 3 Orientation: 0-Oriented Tacttile Disturbances: 0-None Auditory Disturbances: 0-None Visual Disturbances: 0-None Headache: 2-Mild CIWA-Ar Total Score: 8 BHS Progress Note (SOAP) Subjective: c/o left lateral pain, sweats, anxiety, and mild headache. Objective: 12/06/18 12:37 Vital Signs 12/06/18 12/06/18 12/06/18 05:30 07:30 07:49 Temperature 98.1 F 98 F 96.1 F L Pulse Rate 83 62 63 Respiratory 18 18 18 Rate Blood Pressure 108/69 94/56 L 95/50 L 12/06/18 09:49 Temperature 96.8 F L Pulse Rate 66 Respiratory 18 Rate Blood Pressure 105/61 Lab Results WBC 2.8 K/mm3 (4.0-10.0) L 12/04/18 07:00 RBC 4.53 M/mm3 (3.60-5.2) 12/04/18 07:00 Hgb 13.7 GM/dL (10.7-15.3) 12/04/18 07:00 Hct 42.7 % (32.4-45.2) 12/04/18 07:00 MCV 94.2 fl (80-96) 12/04/18 07:00 MCHC 32.0 g/dl (32.0-36.0) 12/04/18 07:00 RDW 14.6 % (11.6-15.6) 12/04/18 07:00 Plt Count 193 K/MM3 (134-434) D 12/04/18 07:00 Sodium 146 mmol/L (136-145) H 12/04/18 07:00 Potassium 4.1 mmol/L (3.5-5.1) 12/04/18 07:00 Chloride 110 mmol/L (98-107) H 12/04/18 07:00 Carbon Dioxide 30 mmol/L (21-32) 12/04/18 07:00 Anion Gap 7 MMOL/L (8-16) L 12/04/18 07:00 BUN 22.1 mg/dL (7-18) H 12/04/18 07:00 Creatinine 1.0 mg/dL (0.55-1.3) 12/04/18 07:00 Random Glucose 103 mg/dL (74-106) 12/04/18 07:00 Calcium 9.1 mg/dL (8.5-10.1) 12/04/18 07:00 Labs noted. Assessment: 12/06/18 12:37 AOX3, in no acute distress. Full ROM, ambulating in the unit. Withdrawal symptoms. Plan: continue detox.
[2018-12-06] MEDS ORDERED: LOPERAMIDE HCL 2 MG CAPSULE PO PRN (19:05)
[2018-12-06] MEDS: THIAMINE HCL 100 MG TABLET (FP) PO SCH (22:38)
[2018-12-06] MEDS: MELATONIN 5 MG TABLETS PO PRN (22:39)
[2018-12-07] MEDS: chlordiazePOXIDE HCL 10 MG CAPSULE PO SCH ×2 (06:17→17:46)
[2018-12-07] MEDS: PRENATAL VITAMINS W/ FOLIC ACID TABLET (FP) PO SCH (10:33)
[2018-12-07] MEDS: VITAMINS A AND D TOPICAL OINTMENT 60 GM TUBE TP SCH ×2 (10:34→23:10)
--- NOTE | 2018-12-07 14:22 | PN ---
S CIWA - CIWA Score Nausea/Vomitin-No Nausea/No Vomiting Muscle Tremors: 2 Anxiety: 1-Mildly Anxious Agitation: 1-Slight > Activity Paroxysmal Sweats: 1-Minimal Palms Moist Orientation: 0-Oriented Tacttile Disturbances: 0-None Auditory Disturbances: 0-None Visual Disturbances: 0-None Headache: 0-None Present CIWA-Ar Total Score: 5 BHS Progress Note (SOAP) Subjective: sweats Objective: 12/07/18 14:21 Vital Signs Temperature 97.9 F 12/07/18 13:56 Pulse Rate 81 12/07/18 13:56 Respiratory Rate 17 12/07/18 13:56 Blood Pressure 104/69 12/07/18 13:56 O2 Sat by Pulse Oximetry (%) aaox3 ambulating no acute distress Assessment: 12/07/18 14:21 mild withdrawal sx Plan: continue detox increase fluids d/c in am
[2018-12-07] MEDS: MELATONIN 5 MG TABLETS PO PRN (22:38)
[2018-12-07] MEDS: THIAMINE HCL 100 MG TABLET (FP) PO SCH (22:38)
[2018-12-08] MEDS ORDERED: chlordiazePOXIDE HCL 10 MG CAPSULE PO ONE (05:00)
[2018-12-08 07:44] VITALS: BP 124/77; PULSE 72; TEMP 97.3
--- NOTE | 2018-12-08 09:49 | DS ---
[facility] Detox Discharge Summary Admission Date: 12/03/18 Discharge Date: 12/08/18 - History Present History: Alcohol Dependence, Cocaine Dependence - Physical Exam Results Vital Signs: Vital Signs Temperature 97.3 F L 12/08/18 07:42 Pulse Rate 72 12/08/18 07:42 Respiratory Rate 18 12/08/18 07:42 Blood Pressure 124/77 12/08/18 07:42 O2 Sat by Pulse Oximetry (%) Pertinent Admission Physical Exam Findings: pt arrived in withdrawals Laboratory Tests 12/04/18 12/04/18 12/04/18 07:00 07:00 07:00 WBC 2.8 L RBC 4.53 Hgb 13.7 Hct 42.7 MCV 94.2 MCH 30.1 MCHC 32.0 RDW 14.6 Plt Count 193 D MPV 8.8 Sodium 146 H Potassium 4.1 Chloride 110 H Carbon Dioxide 30 Anion Gap 7 L BUN 22.1 H Creatinine 1.0 Est GFR (CKD-EPI)AfAm 68.47 Est GFR (CKD-EPI)NonAf 59.07 POC Glucometer Random Glucose 103 Calcium 9.1 Total Bilirubin 0.2 AST 21 ALT 26 Alkaline Phosphatase 108 Total Protein 7.3 Albumin 3.5 RPR Titer TB (QFT) Incubation TB Test (QFT) Nil 0.11 TB Test (QFT) Mitogen >10.00 TB Test (QFT) Antigen 0.13 TB Test (QFT) Negative TB Positive Criteria 12/04/18 12/06/18 12/08/18 07:00 16:40 05:48 WBC RBC Hgb Hct MCV MCH MCHC RDW Plt Count MPV Sodium Potassium Chloride Carbon Dioxide Anion Gap BUN Creatinine Est GFR (CKD-EPI)AfAm Est GFR (CKD-EPI)NonAf POC Glucometer 144 94 Random Glucose Calcium Total Bilirubin AST ALT Alkaline Phosphatase Total Protein Albumin RPR Titer Nonreactive TB (QFT) Incubation TB Test (QFT) Nil TB Test (QFT) Mitogen TB Test (QFT) Antigen TB Test (QFT) TB Positive Criteria today pt is aaox3 ambulating no acute distress no s/s of withdrawal - Treatment Hospital Course: Detox Protocol Followed, Detoxed Safely, Responded well, Discharged Condition Good, Rehab Referral Accepted Patient has Accepted a Rehab Referral to: declined rehab; referral provided - Medication Discharge Medications: Ambulatory Orders Emtricitab/Rilpiviri/Tenof Ala [Odefsey Tablet] 1 each PO DAILY 04/01/17 Valacyclovir HCl [Valtrex -] 500 mg PO DAILY 04/01/17 - Diagnosis (1) Alcohol dependence with uncomplicated withdrawal Current Visit: Yes Status: Chronic (2) Cocaine dependence, uncomplicated Current Visit: Yes Status: Chronic (3) Nicotine dependence Current Visit: Yes Status: Chronic Qualifiers: Nicotine product type: cigarettes Substance use status: uncomplicated Qualified Code(s): F17.210 - Nicotine dependence, cigarettes, uncomplicated (4) history of genital herpes Current Visit: Yes Status: Chronic (5) Weight decreased Current Visit: No Status: Active (6) s/p cholecystectomy Current Visit: No Status: Active (7) Cocaine dependence Current Visit: Yes Status: Chronic (8) HIV (human immunodeficiency virus infection) Current Visit: No Status: Chronic (9) Insomnia Current Visit: No Status: Chronic (10) Syncope Current Visit: No Status: Chronic (11) History of anemia Current Visit: No Status: Suspected - AMA Did Patient Leave Against Medical Advice: No
== END 2018-12-08 08:25 | disposition home or self-care (01) | DRG 897 ==
LOC: YASAS 11:04 → Y6N 14:29
PROVIDERS: ADMIT Surgery; ATTEND Surgery
PROC: HZ2ZZZZ Detoxification Services for Substance Abuse Treatment (ICD-10-PCS; principal; 2018-12-03)
DX: F10.230 Alcohol dependence with withdrawal, uncomplicated (principal); F14.20 Cocaine dependence, uncomplicated; F17.210 Nicotine dependence, cigarettes, uncomplicated; G47.00 Insomnia, unspecified; Z21 Asymptomatic human immunodeficiency virus [HIV] infection status; R63.4 Abnormal weight loss; Z87.42 Personal history of other diseases of the female genital tract; Z88.1 Allergy status to other antibiotic agents; W18.30XA Fall on same level, unspecified, initial encounter; Y93.9 Activity, unspecified; Y92.238 Other place in hospital as the place of occurrence of the external cause
CPT/HCPCS: 36415; 80053; 82962; 85027; 86480; 86593; 93005; 93010

== ENCOUNTER 2019-03-30 11:50 | Inpatient (IN) | payer OTHER ==
[2019-03-30 13:05] VITALS: BMI 22.6
--- NOTE | 2019-03-30 13:49 | HP ---
COWS - Scale Resting Pulse: 1= RI 81-100 CIWA Score Nausea/Vomitin-No Nausea/No Vomiting Muscle Tremors: 4-Moderate,w/Arms Extend Anxiety: 4-Mod. Anxious/Guarded Agitation: 4-Moderately Restless Paroxysmal Sweats: No Perspiration Orientation: 0-Oriented Tacttile Disturbances: 0-None Auditory Disturbances: 0-None Visual Disturbances: 0-None Headache: 2-Mild CIWA-Ar Total Score: 14 - Admission Criteria OASAS Guidelines: Admission for Medically Managed Detox: Requires at least one of the followin. CIWA greater than 12 2. Seizures within the past 24 hours 3. Delirium tremens within the past 24 hours 4. Hallucinations within the past 24 hours 5. Acute intervention needed for co occurring medical disorder 6. Acute intervention needed for co occurring psychiatric disorder 7. Severe withdrawal that cannot be handled at a lower level of care (continued vomiting, continued diarrhea, abnormal vital signs) requiring intravenous medication and/or fluids 8. Admitting History and Physical - Admission History of Present Illness: Pt is a 63 yo F with PMHx HIV (odelfsy), genital herpes here for alcohol detox and cocaine use. Last here 12/08, reports going to narcotics anonymous in [facility] because she dislikes alcoholics anonymous. She came in because she wants to be able to help her sick mother after she becomes sober ETOH 3 pints a day mini martini Last drink 3 hrs ago No seizures, never blacked out Started at 10 Longest sobriety 2 years 1977 Utox-cocaine $20 dollars a day Uses everyday Last use 3 hrs ago Smoke, does not inject Niicotine 1 cig/day Allergies azithromycin, PSHx: Denies Fhx:Mother-HTN, Pt requesting daily valtex and personal hiv meds, with vit A and D ointment for skin Denies problems with the law [address] Lives alones History Source: Patient, Medical Record Limitations to Obtaining History: Poor Historian - Past Medical History Infectious Disease: Yes: HIV - Smoking History Smoking history: Current some day smoker Have you smoked in the past 12 months: Yes Aproximately how many cigarettes per day: 10 - Alcohol/Substance Use Hx Alcohol Use: Yes Admission ROS [facility] Allergies/Adverse Reactions: Allergies Allergy/AdvReac Type Severity Reaction Status Date / Time azithromycin [From Zithromax] AdvReac Severe Vomiting Verified 03/30/19 12:58 erythromycin base AdvReac Severe Vomiting Verified 03/30/19 12:58 - Ebola screening Have you traveled outside of the country in the last 21 days: No Have you had contact with anyone from an Ebola affected area: No Do you have a fever: No - Review of Systems Constitutional: No Symptoms Reported EENT: reports: No Symptoms Reported Respiratory: reports: No Symptoms reported Cardiac: reports: No Symptoms Reported GI: reports: No Symptoms Reported : reports: No Symptoms Reported Musculoskeletal: reports: No Symptoms Reported Integumentary: reports: No Symptoms Reported Neuro: reports: No Symptoms reported Endocrine: reports: No Symptoms Reported Hematology: reports: No Symptoms Reported Psychiatric: reports: No Sypmtoms Reported Other Systems: Reviewed and Negative Patient History - Patient Medical History Hx Anemia: Yes Hx Asthma: No Hx Chronic Obstructive Pulmonary Disease (COPD): No Hx Cancer: No Hx Cardiac Disorders: No Hx Congestive Heart Failure: No Hx Hypertension: No Hx Hypercholesterolemia: No Hx Pacemaker: No HX Cerebrovascular Accident: No Hx Seizures: No Hx Dementia: No Hx Diabetes: No Hx Gastrointestinal Disorders: No Hx Liver Disease: No Hx Genitourinary Disorders: No Hx Sexually Transmitted Disorders: Yes (GONORRHEA, SYPHILIS, GENITAL HERPES AND HPV HX) Hx Renal Disease (ESRD): No Hx Thyroid Disease: No Hx Human Immunodeficiency Virus (HIV): Yes (since 1998-[facility]) Hx Hepatitis C: No Hx Depression: No Hx Suicide Attempt: No Hx Bipolar Disorder: No Hx Schizophrenia: No - Patient Surgical History Past Surgical History: Yes Hx Neurologic Surgery: No Hx Cataract Extraction: No Hx Cardiac Surgery: No Hx Lung Surgery: No Hx Breast Surgery: No Hx Breast Biopsy: No Hx Abdominal Surgery: No Hx Appendectomy: No Hx Cholecystectomy: Yes (cholecystectomy at age 3 months) Hx Genitourinary Surgery: No Hx Section: No Hx Orthopedic Surgery: No Anesthesia Reaction: No - PPD History Results: CXR TBD - Smoking Cessation Smoking history: Current some day smoker Have you smoked in the past 12 months: Yes Aproximately how many cigarettes per day: 1 Cigars Per Day: 0 Hx Chewing Tobacco Use: No Initiated information on smoking cessation: Yes 'Breaking Loose' booklet given: 03/30/19 - Substances abused Alcohol Substance route: Oral Frequency: Daily Amount used: 3 PINTS VODKA Age of first use: 10 Date of last use: 03/30/19 Crack Substance route: Smoking Frequency: Daily Amount used: $100/DAY Age of first use: 44 Date of last use: 03/30/19 Admission Physical Exam [facility] - Vital Signs Vital Signs: Vital Signs - 24 hr 03/30/19 13:00 Temperature 97.6 F Pulse Rate 88 Respiratory 16 Rate Blood Pressure 115/78 - Physical General Appearance: Yes: Tremorous, Irritable HEENTM: Yes: Other (edentulous) Respiratory: Yes: Chest Non-Tender, Lungs Clear, Normal Breath Sounds Neck: Yes: Within Normal Limits Breast: Yes: Breast Exam Deferred Cardiology: Yes: Regular Rate, S1, S2 Abdominal: Yes: Within Normal Limits Genitourinary: Yes: Within Normal Limits Back: Yes: Within Normal Limits Musculoskeletal: Yes: Within Normal Limits Extremities: Yes: Within Normal Limits Neurological: Yes: hair dresser II-XII NML intact, Motor Strength 5/5 Integumentary: Yes: Other (healed bruised) - Diagnostic (1) Alcohol dependence with uncomplicated withdrawal Current Visit: No Status: Chronic (2) HIV (human immunodeficiency virus infection) Current Visit: No Status: Chronic Cleared for Admission [facility] - Detox or Rehab [facility] Level of Care: Medically Supervised Breathalyzer - Breathalyzer Breathalyzer: 0.008 Urine Drug Screen - Test Device Lot number: [id number] Expiration date: 11/19/20 - Control Is test valid?: Yes - Results Drug screen NEGATIVE: No Urine drug screen results: JELANI-Cocaine Inpatient Rehab Admission - Rehab Decision to Admit Inpatient rehab admission?: No
--- NOTE | 2019-03-30 14:06 | PN ---
Teaching Attending Note Name of Resident: Kavita Díaz ATTENDING PHYSICIAN STATEMENT I saw and evaluated the patient. I reviewed the resident's note and discussed the case with the resident. I agree with the resident's findings and plan as documented. SUBJECTIVE: 63 yo with HIV pos, h/o AUD last here 4 months ago, returns today for alcohol detox. Uses alcohol daily- 3 pints of martini, uses cocaine $10/day OBJECTIVE: Vital Signs - 24 hr 03/30/19 13:00 Temperature 97.6 F Pulse Rate 88 Respiratory 16 Rate Blood Pressure 115/78 tremulous, alert and oriented ERON-0.08 ASSESSMENT AND PLAN: AUD- detox protocol-valium HIV- continue mp consult
[2019-03-30] MEDS ORDERED: ACETAMINOPHEN 325 MG TABLET (FP) PO PRN ×2 (14:17)
[2019-03-30] MEDS ORDERED: MAGNESIUM HYDROX 2400MG/30ML ORAL SUSPENSION 30 ML CUP PO PRN (14:17)
[2019-03-30] MEDS ORDERED: MENTHOL/PHENOL 1 EACH UD MM PRN (14:17)
[2019-03-30] MEDS ORDERED: METHOCARBAMOL 500 MG TABLET PO PRN (14:17)
[2019-03-30] MEDS ORDERED: MAGNESIUM CITRATE 300 ML BOTTLE PO PRN (14:17)
[2019-03-30] MEDS ORDERED: IBUPROFEN 400 MG TABLET (FP) PO PRN (14:17)
[2019-03-30] MEDS ORDERED: BISMUTH SUBSALICYLATE 524 MG/30 ML UD PO PRN (14:17)
[2019-03-30] MEDS ORDERED: MAG HYDROX/AL HYDROX/SIMETH 30 ML UNIT-DOSE CUP PO PRN (14:17)
[2019-03-30] MEDS ORDERED: hydrOXYzine PAMOATE 25 MG CAPSULE (FP) PO PRN (14:17)
[2019-03-30] MEDS: diazePAM 5 MG TABLET PO PRN (15:48)
[2019-03-30] MEDS: valACYclovir HCL 500 MG TABLET (FP) PO SCH (15:48)
[2019-03-30] MEDS: EMTRICITAB/RILPIVIRI/TENOF ALA (ODEFSEY) TABLET PO SCH (15:52)
[2019-03-30] MEDS: VITAMINS A AND D TOPICAL OINTMENT 60 GM TUBE TP SCH (18:33)
[2019-03-30] MEDS: diazePAM 5 MG TABLET PO SCH (22:05)
[2019-03-30] MEDS: THIAMINE HCL 100 MG TABLET (FP) PO SCH (22:05)
[2019-03-31] MEDS: diazePAM 5 MG TABLET PO SCH ×3 (05:31→22:00)
[2019-03-31] MEDS: VITAMINS A AND D TOPICAL OINTMENT 60 GM TUBE TP SCH ×5 (05:33→23:34)
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
[2019-03-31] MEDS: EMTRICITAB/RILPIVIRI/TENOF ALA (ODEFSEY) TABLET PO SCH (10:26)
[2019-03-31] MEDS: PRENATAL VITAMINS W/ FOLIC ACID TABLET (FP) PO SCH (10:27)
[2019-03-31] MEDS: valACYclovir HCL 500 MG TABLET (FP) PO SCH (10:27)
[2019-03-31] MEDS: diazePAM 5 MG TABLET PO PRN (10:29)
[2019-03-31 11:05] LABS: HEMATOCRIT 40.6 % (32.4-45.2); MCH 30.2 pg (25.7-33.7); MEAN CELL VOLUME 94.3 fl (80-96); MEAN PLT VOLUME 9.4 fl (7.5-11.1); PLATELET COUNT 188 K/MM3 (134-434); RDW 14.6 % (11.6-15.6); WHITE BLOOD COUNT 3.5 K/mm3 (4.0-10.0)
[2019-03-31 11:16] LABS: ALBUMIN 3.4 g/dl (3.4-5.0); BILIRUBIN,TOTAL 0.3 mg/dL (0.2-1); BLOOD UREA NITROGEN 22.7 mg/dL (7-18); CALCIUM 9.1 mg/dL (8.5-10.1); POTASSIUM 4.4 mmol/L (3.5-5.1); TOT PROT 7.2 g/dl (6.4-8.2)
--- NOTE | 2019-03-31 12:18 | PN ---
S CIWA - CIWA Score Nausea/Vomitin-No Nausea/No Vomiting Muscle Tremors: 3 Anxiety: 2 Agitation: 2 Paroxysmal Sweats: 2 Orientation: 0-Oriented Tacttile Disturbances: 0-None Auditory Disturbances: 0-None Visual Disturbances: 0-None Headache: 0-None Present CIWA-Ar Total Score: 9 S Progress Note (SOAP) Subjective: agitation sweats irritable interrupted sleep Objective: 03/31/19 12:17 Vital Signs Temperature 98.1 F 03/31/19 10:00 Pulse Rate 103 H 03/31/19 10:00 Respiratory Rate 20 03/31/19 10:00 Blood Pressure 123/66 03/31/19 10:00 O2 Sat by Pulse Oximetry (%) Laboratory Tests 03/31/19 03/31/19 07:50 07:50 WBC 3.5 L RBC 4.30 Hgb 13.0 Hct 40.6 MCV 94.3 MCH 30.2 MCHC 32.0 RDW 14.6 Plt Count 188 MPV 9.4 Sodium 145 Potassium 4.4 Chloride 111 H Carbon Dioxide 29 Anion Gap 5 L BUN 22.7 H Creatinine 1.0 Est GFR (CKD-EPI)AfAm 68.47 Est GFR (CKD-EPI)NonAf 59.07 Random Glucose 82 Calcium 9.1 Total Bilirubin 0.3 AST 27 ALT 28 Alkaline Phosphatase 116 Total Protein 7.2 Albumin 3.4 labs noted aaox3 ambulating no acute distress Assessment: 03/31/19 12:18 withdrawals Plan: continue detox increase fluids
[2019-03-31] MEDS: THIAMINE HCL 100 MG TABLET (FP) PO SCH (22:00)
[2019-03-31] MEDS: MELATONIN 5 MG TABLETS PO PRN (22:01)
[2019-04-01] MEDS: diazePAM 5 MG TABLET PO SCH ×2 (06:16→17:11)
[2019-04-01] MEDS: VITAMINS A AND D TOPICAL OINTMENT 60 GM TUBE TP SCH ×4 (06:16→23:01)
[2019-04-01] MEDS: valACYclovir HCL 500 MG TABLET (FP) PO SCH (10:07)
[2019-04-01] MEDS: PRENATAL VITAMINS W/ FOLIC ACID TABLET (FP) PO SCH (10:07)
[2019-04-01] MEDS: EMTRICITAB/RILPIVIRI/TENOF ALA (ODEFSEY) TABLET PO SCH (10:07)
--- NOTE | 2019-04-01 10:44 | PN ---
S CIWA - CIWA Score Nausea/Vomitin-No Nausea/No Vomiting Muscle Tremors: 2 Anxiety: 1-Mildly Anxious Agitation: 1-Slight > Activity Paroxysmal Sweats: No Perspiration Orientation: 0-Oriented Tacttile Disturbances: 0-None Auditory Disturbances: 0-None Visual Disturbances: 0-None Headache: 0-None Present CIWA-Ar Total Score: 4 BHS Progress Note (SOAP) Subjective: sweats less agitated little anxiety Objective: 04/01/19 10:43 Vital Signs Temperature 97.2 F L 04/01/19 09:34 Pulse Rate 94 H 04/01/19 09:34 Respiratory Rate 18 04/01/19 09:34 Blood Pressure 117/92 04/01/19 09:34 O2 Sat by Pulse Oximetry (%) Laboratory Tests 03/31/19 03/31/19 07:50 07:50 WBC 3.5 L RBC 4.30 Hgb 13.0 Hct 40.6 MCV 94.3 MCH 30.2 MCHC 32.0 RDW 14.6 Plt Count 188 MPV 9.4 Sodium 145 Potassium 4.4 Chloride 111 H Carbon Dioxide 29 Anion Gap 5 L BUN 22.7 H Creatinine 1.0 Est GFR (CKD-EPI)AfAm 68.47 Est GFR (CKD-EPI)NonAf 59.07 Random Glucose 82 Calcium 9.1 Total Bilirubin 0.3 AST 27 ALT 28 Alkaline Phosphatase 116 Total Protein 7.2 Albumin 3.4 aaox3 ambulating no acute distress Assessment: 04/01/19 10:44 mild withdrawals Plan: continue detox increase fluids
[2019-04-01] MEDS: THIAMINE HCL 100 MG TABLET (FP) PO SCH (22:03)
[2019-04-01] MEDS: MELATONIN 5 MG TABLETS PO PRN (22:05)
[2019-04-02] MEDS: VITAMINS A AND D TOPICAL OINTMENT 60 GM TUBE TP SCH (05:14)
[2019-04-02] MEDS ORDERED: diazePAM 5 MG TABLET PO ONE (06:00)
--- NOTE | 2019-04-02 08:46 | DS ---
[facility] Detox Discharge Summary Admission Date: 03/30/19 Discharge Date: 04/02/19 - History Present History: Alcohol Dependence, Cocaine Dependence - Physical Exam Results Vital Signs: Vital Signs Temperature 97 F L 04/02/19 07:39 Pulse Rate 67 04/02/19 07:39 Respiratory Rate 18 04/02/19 07:39 Blood Pressure 108/76 04/02/19 07:39 O2 Sat by Pulse Oximetry (%) Pertinent Admission Physical Exam Findings: Vital Signs Temperature 97 F L 04/02/19 07:39 Pulse Rate 67 04/02/19 07:39 Respiratory Rate 18 04/02/19 07:39 Blood Pressure 108/76 04/02/19 07:39 O2 Sat by Pulse Oximetry (%) Laboratory Tests 03/31/19 03/31/19 03/31/19 07:50 07:50 07:50 WBC 3.5 L RBC 4.30 Hgb 13.0 Hct 40.6 MCV 94.3 MCH 30.2 MCHC 32.0 RDW 14.6 Plt Count 188 MPV 9.4 Sodium 145 Potassium 4.4 Chloride 111 H Carbon Dioxide 29 Anion Gap 5 L BUN 22.7 H Creatinine 1.0 Est GFR (CKD-EPI)AfAm 68.47 Est GFR (CKD-EPI)NonAf 59.07 Random Glucose 82 Calcium 9.1 Total Bilirubin 0.3 AST 27 ALT 28 Alkaline Phosphatase 116 Total Protein 7.2 Albumin 3.4 RPR Titer Nonreactive aaox3 ambulating no acute distress - Treatment Hospital Course: Detox Protocol Followed, Detoxed Safely, Responded well, Discharged Condition Good, Rehab Referral Accepted Patient has Accepted a Rehab Referral to: pt referred to [facility] inpatient rehab - Medication Discharge Medications: Ambulatory Orders Emtricitab/Rilpiviri/Tenof Ala [Odefsey Tablet] 1 each PO DAILY 04/01/17 Valacyclovir HCl [Valtrex -] 500 mg PO DAILY 04/01/17 - Diagnosis (1) Substance induced mood disorder Current Visit: Yes Status: Acute (2) Substance-induced sleep disorder Current Visit: Yes Status: Acute (3) Alcohol dependence with uncomplicated withdrawal Current Visit: Yes Status: Chronic (4) Cocaine dependence, uncomplicated Current Visit: Yes Status: Chronic (5) HIV (human immunodeficiency virus infection) Current Visit: Yes Status: Chronic Qualifiers: HIV symptom status: unspecified Qualified Code(s): B20 - Human immunodeficiency virus [HIV] disease (6) Insomnia Current Visit: Yes Status: Chronic Qualifiers: Insomnia type: primary Qualified Code(s): F51.01 - Primary insomnia (7) Nicotine dependence Current Visit: Yes Status: Chronic Qualifiers: Nicotine product type: cigarettes Substance use status: uncomplicated Qualified Code(s): F17.210 - Nicotine dependence, cigarettes, uncomplicated (8) History of anemia Current Visit: No Status: Suspected (9) s/p cholecystectomy Current Visit: No Status: Resolved - AMA Did Patient Leave Against Medical Advice: No
[2019-04-02 09:47] VITALS: BP 118/68; PULSE 78; TEMP 97.2
[2019-04-02] MEDS: valACYclovir HCL 500 MG TABLET (FP) PO SCH (10:20)
[2019-04-02] MEDS: PRENATAL VITAMINS W/ FOLIC ACID TABLET (FP) PO SCH (10:20)
[2019-04-02] MEDS: EMTRICITAB/RILPIVIRI/TENOF ALA (ODEFSEY) TABLET PO SCH (10:20)
[2019-04-02] MEDS ORDERED: LOPERAMIDE HCL 2 MG CAPSULE PO PRN (10:59)
== END 2019-04-02 11:32 | disposition other institution (70) | DRG 897 ==
LOC: YASAS 11:50 → Y6N 14:55
PROVIDERS: ADMIT Allergy & Immunology; ATTEND Allergy & Immunology
PROC: HZ2ZZZZ Detoxification Services for Substance Abuse Treatment (ICD-10-PCS; principal; 2019-03-30)
DX: F10.230 Alcohol dependence with withdrawal, uncomplicated (principal); F14.20 Cocaine dependence, uncomplicated; F19.282 Other psychoactive substance dependence with psychoactive substance-induced sleep disorder; F17.210 Nicotine dependence, cigarettes, uncomplicated; F19.24 Other psychoactive substance dependence with psychoactive substance-induced mood disorder; F51.05 Insomnia due to other mental disorder; Z21 Asymptomatic human immunodeficiency virus [HIV] infection status; Z86.19 Personal history of other infectious and parasitic diseases; Z87.42 Personal history of other diseases of the female genital tract; Z90.49 Acquired absence of other specified parts of digestive tract; Z88.1 Allergy status to other antibiotic agents
CPT/HCPCS: 36415; 80053; 85027; 86593

== ENCOUNTER 2019-04-02 12:06 | Inpatient (IN) | payer OTHER ==
[2019-04-02] MEDS ORDERED: LOPERAMIDE HCL 2 MG CAPSULE PO PRN ×2 (12:27→14:37)
--- NOTE | 2019-04-02 12:48 | PN ---
[facility] Progress Note (SOAP) Subjective: Patient c/o diarrhea; recently transferred from detox to rehab Objective: 04/02/19 12:29 Vital Signs Period Temp Pulse Resp BP Sys/Sims Pulse Ox Last 24 Hr 97.9 F 90 18 108/74 P/E General: No apparent distress HEENTM: normocephalic Neck: supple Lungs: clear Heart: s1 s2 Abd: +BS 04/02/19 12:48 Assessment: Diarrhea 04/02/19 12:49 Plan: Imodium ordered.
--- NOTE | 2019-04-02 14:36 | HP ---
[facility] Rehab Assess/Revision - Admission History Admitted to Rehab from: [address] - Vital signs Vital Signs: Vital Signs Period Temp Pulse Resp BP Sys/Sims Pulse Ox Last 24 Hr 97.9 F 90 18 108/74 - Findings Detox History & Physical reviewed: Yes Concur with findings: Yes Inpatient Rehab Admission - Rehab Decision to Admit Inpatient rehab admission?: Yes - Initial Determination Are CD services needed?: Yes Free of communicable disease: Yes Not in need of hospitalization: Yes - Rehab Admission Criteria Previous failed treatment: Yes Poor recovery environment: Yes Comorbidities: Yes Lacks judgement: Yes Patient is meeting Inpatient Rehab admission criteria:: Yes
[2019-04-02] MEDS ORDERED: ACETAMINOPHEN 325 MG TABLET (FP) PO PRN (14:37)
[2019-04-02] MEDS ORDERED: MAGNESIUM HYDROX 2400MG/30ML ORAL SUSPENSION 30 ML CUP PO PRN (14:37)
[2019-04-02] MEDS ORDERED: MENTHOL/PHENOL 1 EACH UD MM PRN (14:37)
[2019-04-02] MEDS ORDERED: P-EPHED 60MG/TRIPROLIDI 2.5MG TABLET PO PRN (14:37)
[2019-04-02] MEDS ORDERED: MAG HYDROX/AL HYDROX/SIMETH 30 ML UNIT-DOSE CUP PO PRN (14:37)
[2019-04-02] MEDS ORDERED: guaiFENesin 200 MG/10 ML 10 ML UNIT-DOSE CUPS PO PRN (14:37)
[2019-04-02] MEDS ORDERED: MAGNESIUM CITRATE 300 ML BOTTLE PO PRN (14:37)
[2019-04-02] MEDS ORDERED: IBUPROFEN 400 MG TABLET (FP) PO PRN (14:37)
[2019-04-02] MEDS ORDERED: PT OWN MED DRAWER 7, Y5N ONE ×2 (19:51→23:18)
[2019-04-02] MEDS: MELATONIN 5 MG TABLETS PO PRN (21:49)
[2019-04-02] MEDS: THIAMINE HCL 100 MG TABLET (FP) PO SCH (21:49)
[2019-04-03] MEDS: EMTRICITAB/RILPIVIRI/TENOF ALA (ODEFSEY) TABLET PO SCH (07:32)
[2019-04-03] MEDS: PRENATAL VITAMINS W/ FOLIC ACID TABLET (FP) PO SCH (09:31)
[2019-04-03] MEDS: valACYclovir HCL 500 MG TABLET (FP) PO SCH (09:31)
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
[2019-04-03] MEDS: VITAMINS A AND D TOPICAL OINTMENT 60 GM TUBE TP SCH ×2 (12:50→17:56)
[2019-04-03] MEDS ORDERED: PT OWN MED DRAWER 7, Y5N ONE (17:33)
[2019-04-03] MEDS: MELATONIN 5 MG TABLETS PO PRN (21:21)
[2019-04-03] MEDS: THIAMINE HCL 100 MG TABLET (FP) PO SCH (21:21)
[2019-04-04] MEDS: VITAMINS A AND D TOPICAL OINTMENT 60 GM TUBE TP SCH ×5 (07:44→23:38)
[2019-04-04] MEDS: EMTRICITAB/RILPIVIRI/TENOF ALA (ODEFSEY) TABLET PO SCH (07:45)
[2019-04-04] MEDS ORDERED: PT OWN MED DRAWER 7, Y5N ONE ×2 (07:47→11:45)
[2019-04-04] MEDS: PRENATAL VITAMINS W/ FOLIC ACID TABLET (FP) PO SCH (09:47)
[2019-04-04] MEDS: valACYclovir HCL 500 MG TABLET (FP) PO SCH (09:47)
[2019-04-04] MEDS: MELATONIN 5 MG TABLETS PO PRN (21:44)
[2019-04-04] MEDS: THIAMINE HCL 100 MG TABLET (FP) PO SCH (21:44)
[2019-04-05] MEDS: VITAMINS A AND D TOPICAL OINTMENT 60 GM TUBE TP SCH ×4 (07:59→23:54)
[2019-04-05] MEDS: EMTRICITAB/RILPIVIRI/TENOF ALA (ODEFSEY) TABLET PO SCH (07:59)
[2019-04-05] MEDS ORDERED: PT OWN MED DRAWER 7, Y5N ONE (08:12)
[2019-04-05] MEDS: PRENATAL VITAMINS W/ FOLIC ACID TABLET (FP) PO SCH (09:37)
[2019-04-05] MEDS: valACYclovir HCL 500 MG TABLET (FP) PO SCH (09:37)
[2019-04-05] MEDS: THIAMINE HCL 100 MG TABLET (FP) PO SCH (21:40)
[2019-04-06] MEDS: EMTRICITAB/RILPIVIRI/TENOF ALA (ODEFSEY) TABLET PO SCH (07:34)
[2019-04-06] MEDS: VITAMINS A AND D TOPICAL OINTMENT 60 GM TUBE TP SCH ×3 (07:34→18:25)
[2019-04-06] MEDS ORDERED: PT OWN MED DRAWER 7, Y5N ONE (09:00)
[2019-04-06] MEDS: valACYclovir HCL 500 MG TABLET (FP) PO SCH (09:59)
[2019-04-06] MEDS: PRENATAL VITAMINS W/ FOLIC ACID TABLET (FP) PO SCH (09:59)
[2019-04-06] MEDS: THIAMINE HCL 100 MG TABLET (FP) PO SCH (21:56)
[2019-04-07] MEDS: VITAMINS A AND D TOPICAL OINTMENT 60 GM TUBE TP SCH ×4 (00:15→18:30)
[2019-04-07] MEDS: EMTRICITAB/RILPIVIRI/TENOF ALA (ODEFSEY) TABLET PO SCH (07:45)
[2019-04-07] MEDS ORDERED: PT OWN MED DRAWER 7, Y5N ONE (07:47)
[2019-04-07] MEDS: valACYclovir HCL 500 MG TABLET (FP) PO SCH (10:05)
[2019-04-07] MEDS: PRENATAL VITAMINS W/ FOLIC ACID TABLET (FP) PO SCH (10:05)
--- NOTE | 2019-04-07 12:07 | PN ---
[facility] Progress Note Note: S: Reviewed labs with the patient. Laboratory 04/03/19 04/03/19 04/03/19 12:10 12:10 12:10 Pharyngeal C. trach JENNI Negative (Negative) Phary N.gonorrhoeae JENNI Negative (Negative) Rectal C trach JENNI Negative (Negative) Rectal N gonorrh JENNI Negative (Negative) C. trachomatis (JENNI) Negative (Negative) N.gonorrhoeae DNA (JENNI) Negative (Negative) T. vaginalis (JENNI) Negative (Negative) 0:General: no apparent distress HEENTM: normocephalic Lungs: clear Heart: s1 s2 ABD: +BS A: No STI, HIV infection P: discussed safer sex
[2019-04-07] MEDS: MELATONIN 5 MG TABLETS PO PRN (21:21)
[2019-04-07] MEDS: THIAMINE HCL 100 MG TABLET (FP) PO SCH (21:21)
[2019-04-08] MEDS: VITAMINS A AND D TOPICAL OINTMENT 60 GM TUBE TP SCH ×4 (00:30→18:30)
[2019-04-08] MEDS: EMTRICITAB/RILPIVIRI/TENOF ALA (ODEFSEY) TABLET PO SCH (07:49)
[2019-04-08] MEDS: PRENATAL VITAMINS W/ FOLIC ACID TABLET (FP) PO SCH (10:10)
[2019-04-08] MEDS: valACYclovir HCL 500 MG TABLET (FP) PO SCH (10:10)
[2019-04-08] MEDS ORDERED: PT OWN MED DRAWER 7, Y5N ONE (11:40)
[2019-04-08] MEDS: THIAMINE HCL 100 MG TABLET (FP) PO SCH (21:25)
[2019-04-09] MEDS: VITAMINS A AND D TOPICAL OINTMENT 60 GM TUBE TP SCH ×4 (00:21→18:30)
[2019-04-09] MEDS: EMTRICITAB/RILPIVIRI/TENOF ALA (ODEFSEY) TABLET PO SCH (07:38)
[2019-04-09] MEDS: valACYclovir HCL 500 MG TABLET (FP) PO SCH (09:57)
[2019-04-09] MEDS: PRENATAL VITAMINS W/ FOLIC ACID TABLET (FP) PO SCH (09:57)
[2019-04-09] MEDS: MELATONIN 5 MG TABLETS PO PRN (21:17)
[2019-04-09] MEDS: THIAMINE HCL 100 MG TABLET (FP) PO SCH (21:17)
[2019-04-10] MEDS: VITAMINS A AND D TOPICAL OINTMENT 60 GM TUBE TP SCH ×5 (00:15→23:14)
[2019-04-10] MEDS: EMTRICITAB/RILPIVIRI/TENOF ALA (ODEFSEY) TABLET PO SCH (07:42)
[2019-04-10] MEDS: PRENATAL VITAMINS W/ FOLIC ACID TABLET (FP) PO SCH (10:02)
[2019-04-10] MEDS: valACYclovir HCL 500 MG TABLET (FP) PO SCH (10:02)
[2019-04-10] MEDS ORDERED: PT OWN MED DRAWER 7, Y5N ONE (18:16)
[2019-04-10] MEDS: THIAMINE HCL 100 MG TABLET (FP) PO SCH (21:42)
[2019-04-11] MEDS: EMTRICITAB/RILPIVIRI/TENOF ALA (ODEFSEY) TABLET PO SCH (08:30)
[2019-04-11] MEDS: VITAMINS A AND D TOPICAL OINTMENT 60 GM TUBE TP SCH ×3 (08:30→18:09)
[2019-04-11] MEDS: PRENATAL VITAMINS W/ FOLIC ACID TABLET (FP) PO SCH (10:06)
[2019-04-11] MEDS: valACYclovir HCL 500 MG TABLET (FP) PO SCH (10:06)
[2019-04-11] MEDS: THIAMINE HCL 100 MG TABLET (FP) PO SCH (22:10)
[2019-04-12] MEDS: VITAMINS A AND D TOPICAL OINTMENT 60 GM TUBE TP SCH ×4 (00:15→18:11)
[2019-04-12] MEDS: EMTRICITAB/RILPIVIRI/TENOF ALA (ODEFSEY) TABLET PO SCH (08:03)
[2019-04-12] MEDS: valACYclovir HCL 500 MG TABLET (FP) PO SCH (10:00)
[2019-04-12] MEDS: PRENATAL VITAMINS W/ FOLIC ACID TABLET (FP) PO SCH (10:00)
[2019-04-12] MEDS ORDERED: PT OWN MED DRAWER 7, Y5N ONE (18:12)
[2019-04-12] MEDS: THIAMINE HCL 100 MG TABLET (FP) PO SCH (21:38)
[2019-04-13] MEDS: VITAMINS A AND D TOPICAL OINTMENT 60 GM TUBE TP SCH ×4 (00:35→18:40)
[2019-04-13] MEDS: EMTRICITAB/RILPIVIRI/TENOF ALA (ODEFSEY) TABLET PO SCH (07:48)
[2019-04-13] MEDS: PRENATAL VITAMINS W/ FOLIC ACID TABLET (FP) PO SCH (09:29)
[2019-04-13] MEDS: valACYclovir HCL 500 MG TABLET (FP) PO SCH (09:29)
[2019-04-13] MEDS: THIAMINE HCL 100 MG TABLET (FP) PO SCH (21:15)
[2019-04-14] MEDS: VITAMINS A AND D TOPICAL OINTMENT 60 GM TUBE TP SCH ×4 (00:24→17:45)
[2019-04-14] MEDS: EMTRICITAB/RILPIVIRI/TENOF ALA (ODEFSEY) TABLET PO SCH (07:33)
[2019-04-14] MEDS: valACYclovir HCL 500 MG TABLET (FP) PO SCH (09:43)
[2019-04-14] MEDS: PRENATAL VITAMINS W/ FOLIC ACID TABLET (FP) PO SCH (09:43)
[2019-04-14] MEDS: THIAMINE HCL 100 MG TABLET (FP) PO SCH (21:21)
[2019-04-15] MEDS: VITAMINS A AND D TOPICAL OINTMENT 60 GM TUBE TP SCH ×5 (00:15→23:12)
[2019-04-15] MEDS: EMTRICITAB/RILPIVIRI/TENOF ALA (ODEFSEY) TABLET PO SCH (07:55)
[2019-04-15] MEDS: valACYclovir HCL 500 MG TABLET (FP) PO SCH (09:54)
[2019-04-15] MEDS: PRENATAL VITAMINS W/ FOLIC ACID TABLET (FP) PO SCH (09:54)
--- NOTE | 2019-04-15 11:37 | DS ---
[facility] Rehab Discharge Summary - [facility] Rehab Discharge Summary Admission Date: 04/02/19 Discharge Date: 04/16/19 - History Present History: Alcohol dependence, Cocaine dependence Pertinent Past History: Pt is a 63 yo F with PMHx HIV (odelfsy), genital herpes here for alcohol detox and cocaine use. Last here 12/08, reports going to narcotics anonymous in [facility] because she dislikes alcoholics anonymous. She came in because she wants to be able to help her sick mother after she becomes sober ETOH 3 pints a day mini martini No seizures, never blacked out Started at 10 Longest sobriety 2 years 1977 Utox-cocaine $20 dollars a day Uses everyday Smoke, does not inject Niicotine 1 cig/day PSHx: Denies Fhx:Mother-HTN, Pt requesting daily valtex and personal hiv meds, with vit A and D ointment for skin Denies problems with the law - Discharge Physical Exam Vital Signs: Vital Signs Temperature 97.6 F 04/15/19 07:19 Pulse Rate 88 04/15/19 07:19 Respiratory Rate 18 04/15/19 07:19 Blood Pressure 115/79 04/15/19 07:19 O2 Sat by Pulse Oximetry (%) Pertinent Admission Physical Exam Findings: General Appearance: No apparent distress HEENTM: Normocephalic, edentulous Respiratory: Lungs Clear, Cardiology: S1, S2 Abdominal: +BS Musculoskeletal: Full weight bearing, steady gait, full ROM Neurological: lime mixer tender II-XII NML intact, - Treatment Discharge Condition: Discharge condition good (Medically stable for discharge.) Hospital Course: Patient attended groups, had 1:1 with provider. She was tested for STIs at her request, negative for all. No other medical problems while in rehab. - Medication Discharge Medications: Ambulatory Orders Emtricitab/Rilpiviri/Tenof Ala [Odefsey Tablet] 1 each PO DAILY #30 tablet 04/15 Valacyclovir HCl [Valtrex -] 500 mg PO DAILY #30 tablet 04/15/19 - Medication-Assisted Treatment (MAT) Medication-Assisted Treatment (MAT): No - Discharge Instructions Diet, activity, other medical instructions: Diet: as tolerated Activity:as tolerated Other medical instructions: Please follow up with NA meetings. - Diagnosis (1) Alcohol dependence with uncomplicated withdrawal Current Visit: No Status: Chronic (2) Cocaine dependence, uncomplicated Current Visit: No Status: Chronic - Follow-up Referral Minutes to complete discharge: 20 - AMA Did Patient Leave Against Medical Advice: No
[2019-04-15] MEDS ORDERED: PT OWN MED DRAWER 7, Y5N ONE (20:12)
[2019-04-15] MEDS: THIAMINE HCL 100 MG TABLET (FP) PO SCH (21:11)
[2019-04-16 06:56] VITALS: BP 120/66; PULSE 76; TEMP 97.8
[2019-04-16] MEDS: VITAMINS A AND D TOPICAL OINTMENT 60 GM TUBE TP SCH (07:43)
[2019-04-16] MEDS: EMTRICITAB/RILPIVIRI/TENOF ALA (ODEFSEY) TABLET PO SCH (07:43)
[2019-04-16] MEDS: valACYclovir HCL 500 MG TABLET (FP) PO SCH (09:01)
[2019-04-16] MEDS: PRENATAL VITAMINS W/ FOLIC ACID TABLET (FP) PO SCH (09:01)
== END 2019-04-16 09:05 | disposition home or self-care (01) | DRG 895 ==
LOC: YASAS 12:06 → Y3E 12:07
PROVIDERS: ADMIT Neuromusculoskeletal Medicine & OMM; ATTEND Neuromusculoskeletal Medicine & OMM
PROC: HZ42ZZZ Group Counseling for Substance Abuse Treatment, Cognitive-Behavioral (ICD-10-PCS; principal; 2019-04-02)
DX: F10.20 Alcohol dependence, uncomplicated (principal); F14.20 Cocaine dependence, uncomplicated; Z21 Asymptomatic human immunodeficiency virus [HIV] infection status; Z72.51 High risk heterosexual behavior
CPT/HCPCS: 36415; 87491; 87591; 87661

== ENCOUNTER 2019-06-25 13:14 | Inpatient (IN) | payer OTHER ==
--- NOTE | 2019-06-25 13:49 | BHS.RME ---
Substance Use & Tx History - Substance Use History Alcohol Substance amount: 2 pints cognac, 6 pack of 24 ounce beer Frequency of use: Daily Substance route: Oral Date of Last Use: 06/25/19 Cocaine (Crack) Substance amount: $300 Frequency of use: Less than 3 times per week Substance route: Smoking Date of Last Use: 06/25/19 Physical/Psych/Mental Status - Behavior General Behavior: Increased activity (restlessness, agitation) Eye Contact: Normal - Cooperativeness Cooperativeness: Cooperative - Thinking Thought Processes: Tight Thought content: Future oriented - Physical Health Problems Is patient presently having any pain?: No Does patient presently have any injuries (include location): No Does patient currently have a fever: No Is patient : No CIWA Nausea/Vomitin-No Nausea/No Vomiting Muscle Tremors: 4-Moderate,w/Arms Extend Anxiety: 4-Mod. Anxious/Guarded Agitation: 4-Moderately Restless Paroxysmal Sweats: No Perspiration Orientation: 0-Oriented Tacttile Disturbances: 0-None Auditory Disturbances: 0-None Visual Disturbances: 0-None Headache: 0-None Present CIWA-Ar Total Score: 12
[2019-06-25 15:05] VITALS: BMI 22.6
--- NOTE | 2019-06-25 15:13 | HP ---
CIWA Score Nausea/Vomitin-No Nausea/No Vomiting Muscle Tremors: 4-Moderate,w/Arms Extend Anxiety: 4-Mod. Anxious/Guarded Agitation: 4-Moderately Restless Paroxysmal Sweats: No Perspiration Orientation: 0-Oriented Tacttile Disturbances: 0-None Auditory Disturbances: 0-None Visual Disturbances: 0-None Headache: 0-None Present CIWA-Ar Total Score: 12 - Admission Criteria OASAS Guidelines: Admission for Medically Managed Detox: Requires at least one of the followin. CIWA greater than 12 2. Seizures within the past 24 hours 3. Delirium tremens within the past 24 hours 4. Hallucinations within the past 24 hours 5. Acute intervention needed for co occurring medical disorder 6. Acute intervention needed for co occurring psychiatric disorder 7. Severe withdrawal that cannot be handled at a lower level of care (continued vomiting, continued diarrhea, abnormal vital signs) requiring intravenous medication and/or fluids 8. Admitting History and Physical - Admission Chief Complaint: Ms. Prater is a 63 yo woman who presents to [facility] requesting detox admission "[facility] the [facility]" for alcohol and crack use. History of Present Illness: Ms. Prater is a 63 yo woman who presents to [facility] requesting detox admission "for the [facility]" for alcohol and crack use. She as last admitted her ebetween March 30 and April 16 for detox and rehab. She relapsed in one week. PMH: HIV positive since 1998, genital herpes on Valtrex, systolic heart murmur, rectal dysplasia PSH: Cholecystectomy age 3 months, left foot fracture Psych: none Soc: domiciled Legal: none Substance use history Alcohol: 2 pints cognac daily, 6 pack beer x 24 ounces each, first use age of 10y, last use 2 to 3 hours prior to arrival. Crack: $300 every other day, smokes, first use age 44 y, last use 2-3 hours prior to arrival Nicotine: 2-3 cigarettes when using History Source: Patient Limitations to Obtaining History: No Limitations - Past Medical History Infectious Disease: Yes: HIV - Smoking History Smoking history: Current some day smoker Have you smoked in the past 12 months: Yes Aproximately how many cigarettes per day: 1 - Alcohol/Substance Use Hx Alcohol Use: Yes Admission ROS [facility] Allergies/Adverse Reactions: Allergies Allergy/AdvReac Type Severity Reaction Status Date / Time azithromycin [From Zithromax] AdvReac Severe Vomiting Verified 06/25/19 15:05 erythromycin base AdvReac Severe Vomiting Verified 06/25/19 15:05 Exam Limitations: No Limitations - Ebola screening Have you traveled outside of the country in the last 21 days: No Have you had contact with anyone from an Ebola affected area: No Have you been sick,other than usual withdrawal symptoms: No Do you have a fever: No - Review of Systems Constitutional: Unintentional Wgt. Loss (20 lbs in 2 weeks) EENT: reports: Blurred Vision (has glasses with her) Respiratory: reports: No Symptoms reported Cardiac: reports: No Symptoms Reported GI: reports: Diarrhea : reports: Other (vaginal burning, itch, no discharge) Musculoskeletal: reports: Other (body aches) Integumentary: reports: No Symptoms Reported Neuro: reports: No Symptoms reported Endocrine: reports: No Symptoms Reported Hematology: reports: No Symptoms Reported Psychiatric: reports: Depressed (no SI) Patient History - Patient Medical History Hx Anemia: Yes Hx Asthma: No Hx Chronic Obstructive Pulmonary Disease (COPD): No Hx Cancer: No Hx Cardiac Disorders: No Hx Congestive Heart Failure: No Hx Hypertension: No Hx Hypercholesterolemia: No Hx Pacemaker: No HX Cerebrovascular Accident: No Hx Seizures: No Hx Dementia: No Hx Diabetes: No Hx Gastrointestinal Disorders: No Hx Liver Disease: No Hx Genitourinary Disorders: No Hx Sexually Transmitted Disorders: Yes (HIV) Hx Renal Disease (ESRD): No Hx Thyroid Disease: No Hx Human Immunodeficiency Virus (HIV): Yes (since 1998-ON [facility]) Hx Hepatitis C: No Hx Depression: Yes Hx Suicide Attempt: No Hx Bipolar Disorder: No Hx Schizophrenia: No - Patient Surgical History Past Surgical History: Yes Hx Neurologic Surgery: No Hx Cataract Extraction: No Hx Cardiac Surgery: No Hx Lung Surgery: No Hx Breast Surgery: No Hx Breast Biopsy: No Hx Abdominal Surgery: No Hx Appendectomy: No Hx Cholecystectomy: Yes (cholecystectomy at age 3 months) Hx Genitourinary Surgery: No Hx Section: No Hx Orthopedic Surgery: Yes (# Lt.ankle) Anesthesia Reaction: No - PPD History Date: 12/04/18 Results: TB test (QFT) - Smoking Cessation Smoking history: Current some day smoker Have you smoked in the past 12 months: Yes Aproximately how many cigarettes per day: 1 Cigars Per Day: 0 Hx Chewing Tobacco Use: No Initiated information on smoking cessation: Yes 'Breaking Loose' booklet given: 06/25/19 - Substances abused Alcohol Substance route: Oral Frequency: Daily Amount used: 2 pints sylvia/6 cans beer Age of first use: 10 Date of last use: 06/25/19 Cocaine Substance route: Oral Frequency: 3-6 times per week Amount used: $300 Age of first use: 44 Date of last use: 06/25/19 Admission Physical Exam [facility] - Vital Signs Vital Signs: Vital Signs - 24 hr 06/25/19 15:03 Temperature 97.7 F Pulse Rate 81 Respiratory 18 Rate Blood Pressure 114/76 - Physical General Appearance: Yes: Thin HEENTM: Yes: EOMI, Hearing grossly Normal, Normal Voice Respiratory: Yes: Lungs Clear Neck: Yes: Within Normal Limits Breast: Yes: Breast Exam Deferred Cardiology: Yes: Regular Rate, S1, S2, Systolic Murmur Abdominal: Yes: Normal Bowel Sounds, Non Tender, Flat, Soft Back: Yes: Normal Inspection Musculoskeletal: Yes: Within Normal Limits Extremities: Yes: Within Normal Limits Neurological: Yes: Alert, Normal Response Integumentary: Yes: Within Normal Limits - Diagnostic (1) Alcohol dependence with uncomplicated withdrawal Current Visit: Yes Status: Acute (2) Cocaine dependence, uncomplicated Current Visit: Yes Status: Chronic (3) HIV (human immunodeficiency virus infection) Current Visit: Yes Status: Chronic Qualifiers: HIV symptom status: unspecified Qualified Code(s): B20 - Human immunodeficiency virus [HIV] disease (4) Nicotine dependence Current Visit: No Status: Chronic Qualifiers: Nicotine product type: cigarettes Substance use status: uncomplicated Qualified Code(s): F17.210 - Nicotine dependence, cigarettes, uncomplicated Cleared for Admission [facility] - Detox or Rehab [facility] Level of Care: Medically Managed Breathalyzer - Breathalyzer Breathalyzer: 0 Urine Drug Screen - Test Device Lot number: [id number] Expiration date: 03/21/21 - Control Is test valid?: Yes - Results Drug screen NEGATIVE: No Urine drug screen results: JELANI-Cocaine Inpatient Rehab Admission - Rehab Decision to Admit Inpatient rehab admission?: No
[2019-06-25] MEDS ORDERED: METHOCARBAMOL 500 MG TABLET PO PRN (15:19)
[2019-06-25] MEDS ORDERED: MAGNESIUM HYDROX 2400MG/30ML ORAL SUSPENSION 30 ML CUP PO PRN (15:19)
[2019-06-25] MEDS ORDERED: MAG HYDROX/AL HYDROX/SIMETH 30 ML UNIT-DOSE CUP PO PRN (15:19)
[2019-06-25] MEDS ORDERED: ACETAMINOPHEN 325 MG TABLET (FP) PO PRN ×2 (15:19)
[2019-06-25] MEDS ORDERED: NICOTINE POLACRILEX 2 MG GUM BUC PRN (15:19)
[2019-06-25] MEDS ORDERED: MAGNESIUM CITRATE 300 ML BOTTLE PO PRN (15:19)
[2019-06-25] MEDS ORDERED: MENTHOL/PHENOL 1 EACH UD MM PRN (15:19)
[2019-06-25] MEDS ORDERED: chlordiazePOXIDE HCL 25 MG CAPSULE PO PRN (15:19)
[2019-06-25] MEDS ORDERED: IBUPROFEN 400 MG TABLET (FP) PO PRN (15:19)
[2019-06-25] MEDS ORDERED: ONDANSETRON *ODT* 4 MG TABLET SL ONE (16:30)
[2019-06-25] MEDS: chlordiazePOXIDE HCL 25 MG CAPSULE PO SCH ×2 (16:48→22:08)
[2019-06-25] MEDS: valACYclovir HCL 500 MG TABLET (FP) PO SCH (16:48)
[2019-06-25] MEDS: EMTRICITAB/RILPIVIRI/TENOF ALA (ODEFSEY) TABLET PO SCH (17:07)
[2019-06-25] MEDS: hydrOXYzine PAMOATE 25 MG CAPSULE (FP) PO SCH ×2 (18:31→22:10)
[2019-06-25] MEDS: VITAMINS A AND D TOPICAL OINTMENT 60 GM TUBE TP SCH (18:32)
[2019-06-25] MEDS: BISMUTH SUBSALICYLATE 524 MG/30 ML UD PO PRN (21:17)
[2019-06-25] MEDS: MELATONIN 5 MG TABLETS PO SCH (22:10)
[2019-06-25] MEDS: THIAMINE HCL 100 MG TABLET (FP) PO SCH (22:55)
[2019-06-26] MEDS: VITAMINS A AND D TOPICAL OINTMENT 60 GM TUBE TP SCH ×4 (01:26→17:36)
[2019-06-26] MEDS: hydrOXYzine PAMOATE 25 MG CAPSULE (FP) PO SCH ×5 (05:56→22:26)
[2019-06-26] MEDS: chlordiazePOXIDE HCL 25 MG CAPSULE PO SCH ×4 (05:56→22:26)
[2019-06-26] MEDS: EMTRICITAB/RILPIVIRI/TENOF ALA (ODEFSEY) TABLET PO SCH (08:02)
[2019-06-26 10:33] LABS: HEMATOCRIT 39.9 % (32.4-45.2); HEMOGLOBIN 13.2 GM/dL (10.7-15.3); MCH 31.2 pg (25.7-33.7); MCHC 33.1 g/dl (32.0-36.0); MEAN CELL VOLUME 94.4 fl (80-96); MEAN PLT VOLUME 9.6 fl (7.5-11.1); PLATELET COUNT 174 K/MM3 (134-434); RBC 4.22 M/mm3 (3.60-5.2); RDW 13.4 % (11.6-15.6)
[2019-06-26 10:43] LABS: BILIRUBIN,TOTAL 0.7 mg/dL (0.2-1); BLOOD UREA NITROGEN 17.8 mg/dL (7-18); CALCIUM 8.6 mg/dL (8.5-10.1); CREATININE 1.1 mg/dL (0.55-1.3); TOT PROT 6.2 g/dl (6.4-8.2)
[2019-06-26] MEDS: PRENATAL VITAMINS W/ FOLIC ACID TABLET (FP) PO SCH (10:55)
[2019-06-26] MEDS: valACYclovir HCL 500 MG TABLET (FP) PO SCH (10:55)
[2019-06-26] MEDS: NICOTINE 7 MG/24 HOURS TOPICAL PATCH TD SCH (10:55)
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
--- NOTE | 2019-06-26 12:33 | PN ---
[facility] CIWA - CIWA Score Nausea/Vomitin-No Nausea/No Vomiting Muscle Tremors: 3 Anxiety: 3 Agitation: 3 Paroxysmal Sweats: 2 Orientation: 0-Oriented Tacttile Disturbances: 0-None Auditory Disturbances: 0-None Visual Disturbances: 0-None Headache: 0-None Present CIWA-Ar Total Score: 11 S Progress Note (SOAP) Subjective: sweats tired irritable agitation interrupted sleep Objective: 06/26/19 12:28 Vital Signs Temperature 98.1 F 06/26/19 09:50 Pulse Rate 83 06/26/19 09:50 Respiratory Rate 19 06/26/19 09:50 Blood Pressure 96/69 06/26/19 09:50 O2 Sat by Pulse Oximetry (%) Laboratory Tests 06/26/19 06/26/19 06/26/19 07:45 07:45 07:45 WBC 3.0 L RBC 4.22 Hgb 13.2 Hct 39.9 MCV 94.4 MCH 31.2 MCHC 33.1 RDW 13.4 Plt Count 174 MPV 9.6 Sodium 143 Potassium 4.0 Chloride 109 H Carbon Dioxide 26 Anion Gap 8 BUN 17.8 Creatinine 1.1 Est GFR (CKD-EPI)AfAm 61.01 Est GFR (CKD-EPI)NonAf 52.64 Random Glucose 131 H Calcium 8.6 Total Bilirubin 0.7 AST 25 ALT 22 Alkaline Phosphatase 99 Total Protein 6.2 L Albumin 3.0 L RPR Titer Nonreactive aaox3 ambulating no acute distress Assessment: 06/26/19 12:33 withdrawals Plan: continue detox increase fluids
[2019-06-26] MEDS: THIAMINE HCL 100 MG TABLET (FP) PO SCH (22:26)
[2019-06-26] MEDS: MELATONIN 5 MG TABLETS PO SCH (22:26)
[2019-06-27] MEDS: VITAMINS A AND D TOPICAL OINTMENT 60 GM TUBE TP SCH ×4 (05:34→23:35)
[2019-06-27] MEDS: chlordiazePOXIDE HCL 25 MG CAPSULE PO SCH ×4 (06:14→22:27)
[2019-06-27] MEDS: hydrOXYzine PAMOATE 25 MG CAPSULE (FP) PO SCH ×5 (06:14→23:35)
[2019-06-27] MEDS: EMTRICITAB/RILPIVIRI/TENOF ALA (ODEFSEY) TABLET PO SCH (07:10)
[2019-06-27] MEDS: NICOTINE 7 MG/24 HOURS TOPICAL PATCH TD SCH (10:19)
[2019-06-27] MEDS: PRENATAL VITAMINS W/ FOLIC ACID TABLET (FP) PO SCH (10:19)
[2019-06-27] MEDS: valACYclovir HCL 500 MG TABLET (FP) PO SCH (10:19)
--- NOTE | 2019-06-27 14:26 | PN ---
[facility] CIWA - CIWA Score Nausea/Vomitin-Mild Nausea/No Vomiting Muscle Tremors: 2 Anxiety: 2 Agitation: 2 Paroxysmal Sweats: No Perspiration Orientation: 0-Oriented Tacttile Disturbances: 1-Very Mild Itch/Numbness Auditory Disturbances: 0-None Visual Disturbances: 0-None Headache: 1-Very Mild CIWA-Ar Total Score: 9 S Progress Note (SOAP) Subjective: alert,irritable,anxious,interrupted sleep,tremor Objective: 06/27/19 14:23 Vital Signs Temperature 98.0 F 06/27/19 09:05 Pulse Rate 85 06/27/19 09:05 Respiratory Rate 18 06/27/19 09:05 Blood Pressure 119/80 06/27/19 09:05 O2 Sat by Pulse Oximetry (%) 06/27/19 14:23 Laboratory Last Values WBC 3.0 K/mm3 (4.0-10.0) L 06/26/19 07:45 RBC 4.22 M/mm3 (3.60-5.2) 06/26/19 07:45 Hgb 13.2 GM/dL (10.7-15.3) 06/26/19 07:45 Hct 39.9 % (32.4-45.2) 06/26/19 07:45 MCV 94.4 fl (80-96) 06/26/19 07:45 MCH 31.2 pg (25.7-33.7) 06/26/19 07:45 MCHC 33.1 g/dl (32.0-36.0) 06/26/19 07:45 RDW 13.4 % (11.6-15.6) 06/26/19 07:45 Plt Count 174 K/MM3 (134-434) 06/26/19 07:45 MPV 9.6 fl (7.5-11.1) 06/26/19 07:45 Sodium 143 mmol/L (136-145) 06/26/19 07:45 Potassium 4.0 mmol/L (3.5-5.1) 06/26/19 07:45 Chloride 109 mmol/L (98-107) H 06/26/19 07:45 Carbon Dioxide 26 mmol/L (21-32) 06/26/19 07:45 Anion Gap 8 MMOL/L (8-16) 06/26/19 07:45 BUN 17.8 mg/dL (7-18) 06/26/19 07:45 Creatinine 1.1 mg/dL (0.55-1.3) 06/26/19 07:45 Est GFR (CKD-EPI)AfAm 61.01 06/26/19 07:45 Est GFR (CKD-EPI)NonAf 52.64 06/26/19 07:45 Random Glucose 131 mg/dL (74-106) H 06/26/19 07:45 Calcium 8.6 mg/dL (8.5-10.1) 06/26/19 07:45 Total Bilirubin 0.7 mg/dL (0.2-1) 06/26/19 07:45 AST 25 U/L (15-37) 06/26/19 07:45 ALT 22 U/L (13-61) 06/26/19 07:45 Alkaline Phosphatase 99 U/L (45-117) 06/26/19 07:45 Total Protein 6.2 g/dl (6.4-8.2) L 06/26/19 07:45 Albumin 3.0 g/dl (3.4-5.0) L 06/26/19 07:45 RPR Titer Nonreactive (NONREACTIVE) 06/26/19 07:45 Assessment: 06/27/19 14:24 withdrawal symptom Plan: continue detox libriium regimen,fasting glucose in am,initial glucose is 131
[2019-06-27] MEDS: THIAMINE HCL 100 MG TABLET (FP) PO SCH (22:27)
[2019-06-27] MEDS: MELATONIN 5 MG TABLETS PO SCH (22:28)
[2019-06-28] MEDS ORDERED: chlordiazePOXIDE HCL 10 MG CAPSULE PO PRN
[2019-06-28] MEDS: VITAMINS A AND D TOPICAL OINTMENT 60 GM TUBE TP SCH ×4 (04:29→22:57)
[2019-06-28] MEDS: chlordiazePOXIDE HCL 10 MG CAPSULE PO SCH ×4 (05:40→23:12)
[2019-06-28] MEDS: hydrOXYzine PAMOATE 25 MG CAPSULE (FP) PO SCH ×2 (05:40→10:49)
[2019-06-28] MEDS: NICOTINE 7 MG/24 HOURS TOPICAL PATCH TD SCH (10:49)
[2019-06-28] MEDS: valACYclovir HCL 500 MG TABLET (FP) PO SCH (10:49)
[2019-06-28] MEDS: PRENATAL VITAMINS W/ FOLIC ACID TABLET (FP) PO SCH (10:49)
[2019-06-28] MEDS: EMTRICITAB/RILPIVIRI/TENOF ALA (ODEFSEY) TABLET PO SCH (10:49)
--- NOTE | 2019-06-28 12:56 | PN ---
S CIWA - CIWA Score Nausea/Vomitin-No Nausea/No Vomiting Muscle Tremors: 2 Anxiety: 1-Mildly Anxious Agitation: 1-Slight > Activity Paroxysmal Sweats: No Perspiration Orientation: 0-Oriented Tacttile Disturbances: 0-None Auditory Disturbances: 0-None Visual Disturbances: 0-None Headache: 0-None Present CIWA-Ar Total Score: 4 BHS Progress Note (SOAP) Subjective: feeling better tired sleepy Objective: 06/28/19 12:56 Vital Signs Temperature 98.9 F 06/28/19 08:50 Pulse Rate 84 06/28/19 08:50 Respiratory Rate 18 06/28/19 08:50 Blood Pressure 133/78 06/28/19 08:50 O2 Sat by Pulse Oximetry (%) aaox3 ambulating no acute distress Assessment: 06/28/19 12:56 withdrawals Plan: continue detox increase fluids
[2019-06-28] MEDS: MELATONIN 5 MG TABLETS PO SCH (22:57)
[2019-06-28] MEDS: BISMUTH SUBSALICYLATE 524 MG/30 ML UD PO PRN (22:57)
[2019-06-28] MEDS: THIAMINE HCL 100 MG TABLET (FP) PO SCH (22:57)
[2019-06-29] MEDS: VITAMINS A AND D TOPICAL OINTMENT 60 GM TUBE TP SCH ×4 (01:26→18:03)
[2019-06-29] MEDS ORDERED: hydrOXYzine PAMOATE 50 MG CAPSULE (FP) PO ONE (03:31)
--- NOTE | 2019-06-29 03:33 | PN ---
[facility] Progress Note Note: client reports feeling low spirit about and depressed about her situation. reports recent loss of mother and spending airfare money on addiction. she is also concerned about being behind in her rent and wants to talk to some one about here mental health. she presently denies si/hi/avh. requesting something to help her relax/sleep . client presents calm, a/o x3, thought process nl, depressed affect. client was allowed to share thoughts/ feeling. emotional support provided p- vistaril 50mg po x 1 dose psych reconsult. continue to monitor clinically.
[2019-06-29] MEDS ORDERED: LOPERAMIDE HCL 2 MG CAPSULE PO ONE (03:35)
[2019-06-29] MEDS: chlordiazePOXIDE HCL 10 MG CAPSULE PO SCH ×2 (04:25→17:58)
[2019-06-29] MEDS: valACYclovir HCL 500 MG TABLET (FP) PO SCH (10:48)
[2019-06-29] MEDS: PRENATAL VITAMINS W/ FOLIC ACID TABLET (FP) PO SCH (10:48)
[2019-06-29] MEDS: NICOTINE 7 MG/24 HOURS TOPICAL PATCH TD SCH (10:48)
[2019-06-29] MEDS: hydrOXYzine PAMOATE 25 MG CAPSULE (FP) PO PRN ×2 (10:58→18:02)
--- NOTE | 2019-06-29 12:18 | PN ---
S CIWA - CIWA Score Nausea/Vomitin-No Nausea/No Vomiting Muscle Tremors: None Anxiety: 2 Agitation: 2 Paroxysmal Sweats: No Perspiration Orientation: 0-Oriented Tacttile Disturbances: 0-None Auditory Disturbances: 0-None Visual Disturbances: 0-None Headache: 0-None Present CIWA-Ar Total Score: 4 BHS Progress Note (SOAP) Subjective: anxiety sweats Objective: 06/29/19 12:15 Vital Signs Temperature 98.1 F 06/29/19 08:45 Pulse Rate 89 06/29/19 08:45 Respiratory Rate 18 06/29/19 08:45 Blood Pressure 111/65 06/29/19 08:45 O2 Sat by Pulse Oximetry (%) aaox3 ambulating no acute distress Assessment: 06/29/19 12:17 mild withdrawals imodium prn Plan: continue detox increase fluids d/c in am
--- NOTE | 2019-06-29 12:24 | PN ---
S Progress Note Note: pt states she wants to see psych because I am feeling overwhelm. Pt was asked if she is feeling suicidal or homicidal or does she have a "plan"? pt states no I am ok but feeling overwhelm and the psych I spoke with doesn't understand me. Pt was offered to speak with another psych and she agreed. Showroom Sales Consultant spoke with Dr. Fung and he agreed to speak with patient today. Pt was made aware and agreed to speak with him.
[2019-06-29] MEDS: EMTRICITAB/RILPIVIRI/TENOF ALA (ODEFSEY) TABLET PO SCH (13:45)
[2019-06-29] MEDS: LOPERAMIDE HCL 2 MG CAPSULE PO PRN (14:07)
--- NOTE | 2019-06-29 18:24 | PN ---
Psychiatric Progress Note Vital Signs: Vital Signs Period Temp Pulse Resp BP Sys/Sims Pulse Ox Last 24 Hr 98.1 F-98.4 F 84-89 16-18 111-132/62-73 Date of Session: 06/29/19 Chief Complaint:: " I would like to go to [facility] in [facility]." HPI: Day 5 of detoxification treatment. [facility] issues : alcohol, crack/cocaine, nicotine. Patient was evaluated by Dr Tena on 06/26/19. It appears that this patient has requested a second interview with a psychiatrist to ventilate her feelings about current stressors ( of biological mother two weeks ago, pending eviction for non-payment of rent, debts contracted for drug use, feelings of guilt over not attending mother's , financial difficulties). ROS: Patient is noted as ambulatory, alert/fully oriented, cooperative and goal- directed. She is cognitively intact. No somatic complaints. Current Medications: Active Medications Generic Name Dose Route Start Last Admin Trade Name Freq PRN Reason Stop Dose Admin Acetaminophen 650 mg 06/25/19 15:19 Tylenol - PO Q6H PRN PAIN LEVEL 4 - 6 Acetaminophen 650 mg 06/25/19 15:19 Tylenol - PO Q6H PRN FEVER Al Hydroxide/Mg Hydroxide 30 ml 06/25/19 15:19 Mylanta Oral Suspension - PO Q6H PRN DYSPEPSIA Bismuth Subsalicylate 524 mg 06/25/19 15:19 06/28/19 22:57 Pepto-Bismol - PO 524 mg Q1H PRN Administration DIARRHEA Chlordiazepoxide HCl 10 mg 06/30/19 05:00 Librium - PO 06/30/19 05:01 ONCE@0500 ONE Eucalyptus/Menthol/Phenol/Sorbitol 1 each 06/25/19 15:19 Cepastat Lozenge - MM 07/01/19 15:19 Q4H PRN SORE THROAT Hydroxyzine Pamoate 25 mg 06/28/19 12:55 06/29/19 18:02 Vistaril - PO 07/01/19 15:19 25 mg Q4H PRN Administration AGITATION Ibuprofen 400 mg 06/25/19 15:19 Motrin - PO Q6H PRN PAIN LEVEL 1 - 3 Loperamide HCl 4 mg 06/29/19 11:00 06/29/19 14:07 Imodium - PO 4 mg Q6H PRN Administration DIARRHEA Magnesium Citrate 300 ml 06/25/19 15:19 Citroma - PO Q48H PRN CONSTIPATION Magnesium Hydroxide 30 ml 06/25/19 15:19 Milk Of Magnesia - PO PRN PRN CONSTIPATION Melatonin 5 mg 06/25/19 22:00 06/28/19 22:57 Melatonin PO 5 mg HS EFRAIN Administration Methocarbamol 500 mg 06/25/19 15:19 Robaxin - PO 07/01/19 15:19 Q6H PRN MUSCLE SPASMS Nicotine 7 mg 06/26/19 10:00 06/29/19 10:48 Nicoderm Patch - TD Not Given DAILY EFRAIN Nicotine Polacrilex 2 mg 06/25/19 15:19 Nicorette Gum - BUC Q2H PRN NICOTINE REPLACEMENT RX Multivit/Folic Acid/Iron 1 tab 06/26/19 10:00 06/29/19 10:48 Vitamins (Sjr) - PO 1 tab DAILY EFRAIN Administration Thiamine HCl 100 mg 06/25/19 22:00 06/28/19 22:57 Vitamin B1 - PO 100 mg HS EFRAIN Administration Valacyclovir HCl 500 mg 06/25/19 16:30 06/29/19 10:48 Valtrex - PO 500 mg DAILY EFRAIN Administration Vitamin A/Vitamin D 1 applic 06/25/19 18:00 06/29/19 18:03 Vitamin A & D Top Oint - TP 1 applic Q6HPO EFRAIN Administration Medication(s) Change(s): Not applicable. Patient is not on psychotropic medications with the exception of drugs indicated for detoxification protocol (ETOH). Current Side Effect: No Lab tests ordered: No Lab tests reviewed: Yes Provider note:: Records ([facility]) revisited. Case discussed with the referral source, medical NURSING HOME ASSISTANT Ms Reg Davis. Chart reviewed. Psychiatric consult note of 06/26/[address] Tena : read and appreciated. Met with the patient in the presence of media promoter, nursing home assistant Debby Alcocer (with patient's verbal permission). Patient is a good, well-related and cooperative historian. She indicates that she is concerned about a chronic pattern of relapse immediately after discharge from [facility] inpatient treatment centers. Feels apprehensive about potential for homelessness. " I spent my time using drugs, spending the financial help from my relatives and I did not go to my mother's ." Ms Prater feels " ashamed " of her behavior and blames it on the account of her addiction to drugs. Expresses some dysphoria but she denies suicidal or homicidal ideation, intent or plan. Patient is inquiring about the feasibility of a referral to the [facility] in [facility]. She is willing " to work " on this plan with the social work team. Mental status is stable. See MSE report for details. Benign hospital course. Patient is at her baseline. Total face to face time:: 35 Mental Status Exam - Mental Status Exam Alert and Oriented to: Time, Place, Person Cognitive Function: Good Patient Appearance: Well Groomed (edentulous) Mood: Anxious (mildly anxious), Hopeful Affect: Appropriate, Normal Range Patient Behavior: Appropriate, Cooperative Speech Pattern: Clear, Appropriate Voice Loudness: Normal Thought Process: Intact, Goal Oriented Thought Disorder: Not Present Hallucinations: Denies Suicidal Ideation: Denies Homicidal Ideation: Denies Insight/Judgement: Fair Sleep: Well Gait/Station: Normal Psychiatric Treatment Plan - Problem List (1) Alcohol use disorder Current Visit: Yes Comment: . (2) Cocaine dependence, uncomplicated Current Visit: Yes Comment: . (3) Nicotine dependence Current Visit: Yes Qualifiers: Nicotine product type: cigarettes Substance use status: uncomplicated Qualified Code(s): F17.210 - Nicotine dependence, cigarettes, uncomplicated Comment: . (4) Substance induced mood disorder Current Visit: Yes Comment: . (5) Bereavement Current Visit: Yes Comment: . Initial treatment plan: Psychoeducation, support and empathy are provided to the patient. She declines psychotropic medications. " I don't have a mental illness. My issues are drugs. I was high on drugs, that's why I did not care about going to my mother's ." AA meetings. Motivational counseling provided in this session. MAT services offered to patient : declines. Recommend support from the social work team to assist patient in her inclination for transition to rehabilitation treatment. Observation.
--- NOTE | 2019-06-29 19:14 | PN ---
[facility] Progress Note Note: Psychiatry Attending's note (follow-up) : Case discussed with counselor Valentine Valente. Disposition arrangements revisited with counselor. Emotionally Impaired Teacher learns that patient has changed her plans. According to counselor, patient is now requesting referral to [facility] in [facility]. See Ms Valentine Valente's progress note for details.
[2019-06-29] MEDS: MELATONIN 5 MG TABLETS PO SCH (22:58)
[2019-06-29] MEDS: THIAMINE HCL 100 MG TABLET (FP) PO SCH (22:58)
[2019-06-30] MEDS: LOPERAMIDE HCL 2 MG CAPSULE PO PRN ×2 (01:02→09:09)
[2019-06-30] MEDS: VITAMINS A AND D TOPICAL OINTMENT 60 GM TUBE TP SCH ×2 (02:35→07:00)
[2019-06-30] MEDS ORDERED: chlordiazePOXIDE HCL 10 MG CAPSULE PO ONE (05:00)
[2019-06-30] MEDS: hydrOXYzine PAMOATE 25 MG CAPSULE (FP) PO PRN (06:18)
[2019-06-30 06:54] VITALS: BP 110/65; PULSE 72; TEMP 98.2
[2019-06-30] MEDS: EMTRICITAB/RILPIVIRI/TENOF ALA (ODEFSEY) TABLET PO SCH (07:02)
--- NOTE | 2019-06-30 09:07 | DS ---
[facility] Detox Discharge Summary Admission Date: 06/25/19 Discharge Date: 06/30/19 - History Present History: Alcohol Dependence, Cocaine Dependence - Physical Exam Results Vital Signs: Vital Signs Temperature 98.2 F 06/30/19 06:53 Pulse Rate 72 06/30/19 06:53 Respiratory Rate 18 06/30/19 06:53 Blood Pressure 110/65 06/30/19 06:53 O2 Sat by Pulse Oximetry (%) Pertinent Admission Physical Exam Findings: Vital Signs Temperature 98.2 F 06/30/19 06:53 Pulse Rate 72 06/30/19 06:53 Respiratory Rate 18 06/30/19 06:53 Blood Pressure 110/65 06/30/19 06:53 O2 Sat by Pulse Oximetry (%) Laboratory Tests 06/26/19 06/26/19 06/26/19 07:45 07:45 07:45 WBC 3.0 L RBC 4.22 Hgb 13.2 Hct 39.9 MCV 94.4 MCH 31.2 MCHC 33.1 RDW 13.4 Plt Count 174 MPV 9.6 Sodium 143 Potassium 4.0 Chloride 109 H Carbon Dioxide 26 Anion Gap 8 BUN 17.8 Creatinine 1.1 Est GFR (CKD-EPI)AfAm 61.01 Est GFR (CKD-EPI)NonAf 52.64 Random Glucose 131 H Fasting Glucose Calcium 8.6 Total Bilirubin 0.7 AST 25 ALT 22 Alkaline Phosphatase 99 Total Protein 6.2 L Albumin 3.0 L RPR Titer Nonreactive 06/28/19 07:50 WBC RBC Hgb Hct MCV MCH MCHC RDW Plt Count MPV Sodium Potassium Chloride Carbon Dioxide Anion Gap BUN Creatinine Est GFR (CKD-EPI)AfAm Est GFR (CKD-EPI)NonAf Random Glucose Fasting Glucose 104 Calcium Total Bilirubin AST ALT Alkaline Phosphatase Total Protein Albumin RPR Titer pt is aaox3 ambulating no acute distress pt appears more at ease and is stating I am ready to go home and will see my doctor to refer me to see psych. I'm feeling better. - Treatment Hospital Course: Detox Protocol Followed, Detoxed Safely, Responded well, Discharged Condition Good, Rehab Referral Accepted - Medication Discharge Medications: Ambulatory Orders Emtricitab/Rilpiviri/Tenof Ala [Odefsey Tablet] 1 each PO DAILY #30 tablet 04/15/19 Valacyclovir HCl [Valtrex -] 500 mg PO DAILY #30 tablet 04/15/19 - Diagnosis (1) Alcohol dependence with uncomplicated withdrawal Current Visit: Yes Status: Chronic (2) Bereavement Current Visit: Yes Status: Acute (3) Cocaine dependence, uncomplicated Current Visit: Yes Status: Chronic (4) Substance induced mood disorder Current Visit: Yes Status: Acute (5) HIV (human immunodeficiency virus infection) Current Visit: Yes Status: Chronic Qualifiers: HIV symptom status: unspecified Qualified Code(s): B20 - Human immunodeficiency virus [HIV] disease (6) Nicotine dependence Current Visit: Yes Status: Chronic Qualifiers: Nicotine product type: cigarettes Substance use status: uncomplicated Qualified Code(s): F17.210 - Nicotine dependence, cigarettes, uncomplicated (7) Genital herpes Current Visit: No Status: Resolved Qualifiers: Herpes simplex infection site: unspecified Qualified Code(s): A60.00 - Herpesviral infection of urogenital system, unspecified (8) Substance-induced sleep disorder Current Visit: No Status: Acute (9) Insomnia Current Visit: No Status: Chronic Qualifiers: Insomnia type: primary Qualified Code(s): F51.01 - Primary insomnia (10) History of anemia Current Visit: No Status: Resolved (11) s/p cholecystectomy Current Visit: No Status: Resolved - AMA Did Patient Leave Against Medical Advice: No
== END 2019-06-30 09:11 | disposition home or self-care (01) | DRG 897 ==
LOC: YASAS 13:14 → Y6N 15:48
PROVIDERS: ADMIT Allergy & Immunology; ATTEND Allergy & Immunology
PROC: HZ2ZZZZ Detoxification Services for Substance Abuse Treatment (ICD-10-PCS; principal; 2019-06-25)
DX: F10.230 Alcohol dependence with withdrawal, uncomplicated (principal); F14.20 Cocaine dependence, uncomplicated; F19.282 Other psychoactive substance dependence with psychoactive substance-induced sleep disorder; F17.210 Nicotine dependence, cigarettes, uncomplicated; F51.01 Primary insomnia; F19.24 Other psychoactive substance dependence with psychoactive substance-induced mood disorder; Z21 Asymptomatic human immunodeficiency virus [HIV] infection status; R01.1 Cardiac murmur, unspecified; Z86.19 Personal history of other infectious and parasitic diseases; Z86.2 Personal history of diseases of the blood and blood-forming organs and certain disorders involving the immune mechanism; Z90.49 Acquired absence of other specified parts of digestive tract; Z63.4 Disappearance and death of family member; Z88.1 Allergy status to other antibiotic agents
CPT/HCPCS: 36415; 80053; 82947; 85027; 86593

== ENCOUNTER 2020-09-22 14:00 | Inpatient (IN) | payer OTHER ==
[2020-09-22 16:05] VITALS: BMI 25.4
[2020-09-23] MEDS ORDERED: ACETAMINOPHEN 325 MG TABLET (FP) PO PRN ×2 (00:35)
[2020-09-23] MEDS ORDERED: NICOTINE POLACRILEX 2 MG GUM BUC PRN (00:35)
[2020-09-23] MEDS ORDERED: MAGNESIUM CITRATE 300 ML BOTTLE PO PRN (00:35)
[2020-09-23] MEDS ORDERED: IBUPROFEN 400 MG TABLET (FP) PO PRN (00:35)
[2020-09-23] MEDS ORDERED: MAG HYDROX/AL HYDROX/SIMETH 30 ML UNIT-DOSE CUP PO PRN (00:35)
[2020-09-23] MEDS ORDERED: hydrOXYzine PAMOATE 25 MG CAPSULE (FP) PO PRN (00:35)
[2020-09-23] MEDS ORDERED: METHOCARBAMOL 500 MG TABLET PO PRN (00:35)
[2020-09-23] MEDS ORDERED: MENTHOL/PHENOL 1 EACH UD MM PRN (00:35)
[2020-09-23] MEDS ORDERED: BISMUTH SUBSALICYLATE 524 MG/30 ML PO PRN (00:35)
[2020-09-23] MEDS ORDERED: guaiFENesin 200 MG/10 ML 10 ML UNIT-DOSE CUPS PO PRN (00:35)
[2020-09-23] MEDS ORDERED: DICYCLOMINE HCL 10 MG CAPSULE PO PRN (00:35)
[2020-09-23] MEDS ORDERED: P-EPHED 60MG/TRIPROLIDI 2.5MG TABLET PO PRN (00:35)
[2020-09-23] MEDS ORDERED: ONDANSETRON *ODT* 4 MG TABLET SL PRN (00:35)
[2020-09-23] MEDS ORDERED: MAGNESIUM HYDROX 2400MG/30ML ORAL SUSPENSION 30 ML CUP PO PRN (00:35)
[2020-09-23] MEDS ORDERED: diazePAM 5 MG TABLET PO PRN (09:41)
[2020-09-23] MEDS: diazePAM 5 MG TABLET PO SCH ×3 (10:46→22:06)
[2020-09-23] MEDS: valACYclovir HCL 500 MG TABLET (FP) PO SCH (10:46)
[2020-09-23] MEDS: PRENATAL VITAMINS W/ FOLIC ACID TABLET (FP) PO SCH (10:46)
[2020-09-23] MEDS: NICOTINE 14 MG/24 HOURS TOPICAL PATCH TD SCH (10:47)
[2020-09-23] MEDS: EMTRICITAB/RILPIVIRI/TENOF ALA (ODEFSEY) TABLET PO SCH (12:02)
[2020-09-23] MEDS: THIAMINE HCL 100 MG TABLET (FP) PO SCH (22:06)
[2020-09-23] MEDS: MELATONIN 5 MG TABLETS PO SCH (22:07)
[2020-09-24] MEDS: diazePAM 5 MG TABLET PO SCH ×4 (06:04→22:12)
[2020-09-24] MEDS: NICOTINE 14 MG/24 HOURS TOPICAL PATCH TD SCH (10:12)
[2020-09-24] MEDS: PRENATAL VITAMINS W/ FOLIC ACID TABLET (FP) PO SCH (10:12)
[2020-09-24] MEDS: valACYclovir HCL 500 MG TABLET (FP) PO SCH (10:12)
[2020-09-24] MEDS: EMTRICITAB/RILPIVIRI/TENOF ALA (ODEFSEY) TABLET PO SCH (10:13)
[2020-09-24] MEDS: THIAMINE HCL 100 MG TABLET (FP) PO SCH (22:11)
[2020-09-24] MEDS: MELATONIN 5 MG TABLETS PO SCH (22:11)
[2020-09-25] MEDS: diazePAM 5 MG TABLET PO SCH ×3 (05:22→22:13)
[2020-09-25] MEDS: NICOTINE 14 MG/24 HOURS TOPICAL PATCH TD SCH (10:30)
[2020-09-25] MEDS: PRENATAL VITAMINS W/ FOLIC ACID TABLET (FP) PO SCH (10:30)
[2020-09-25] MEDS: valACYclovir HCL 500 MG TABLET (FP) PO SCH (10:32)
[2020-09-25] MEDS: EMTRICITAB/RILPIVIRI/TENOF ALA (ODEFSEY) TABLET PO SCH (10:32)
[2020-09-25] MEDS ORDERED: MASKS NR ONE (21:07)
[2020-09-25] MEDS: MELATONIN 5 MG TABLETS PO SCH (22:12)
[2020-09-25] MEDS: THIAMINE HCL 100 MG TABLET (FP) PO SCH (22:13)
[2020-09-26] MEDS ORDERED: diazePAM 5 MG TABLET PO SCH (06:00)
[2020-09-26 08:47] VITALS: BP 133/77; PULSE 64; TEMP 96.4
[2020-09-26] MEDS: PRENATAL VITAMINS W/ FOLIC ACID TABLET (FP) PO SCH (09:00)
[2020-09-26] MEDS: NICOTINE 14 MG/24 HOURS TOPICAL PATCH TD SCH (09:00)
[2020-09-26] MEDS: valACYclovir HCL 500 MG TABLET (FP) PO SCH (09:00)
[2020-09-26] MEDS: EMTRICITAB/RILPIVIRI/TENOF ALA (ODEFSEY) TABLET PO SCH (09:01)
[2020-09-27] MEDS ORDERED: diazePAM 5 MG TABLET PO ONE (06:00)
== END 2020-09-26 09:03 | disposition home or self-care (01) | DRG 897 ==
LOC: YASAS 14:00 → UNDOADMIN 17:05 → Y3N 17:05
PROVIDERS: ADMIT Allergy & Immunology; ATTEND Allergy & Immunology
PROC: HZ2ZZZZ Detoxification Services for Substance Abuse Treatment (ICD-10-PCS; principal; 2020-09-22)
DX: F10.230 Alcohol dependence with withdrawal, uncomplicated (principal); F14.20 Cocaine dependence, uncomplicated; F19.282 Other psychoactive substance dependence with psychoactive substance-induced sleep disorder; F17.210 Nicotine dependence, cigarettes, uncomplicated; F19.24 Other psychoactive substance dependence with psychoactive substance-induced mood disorder; F51.05 Insomnia due to other mental disorder; Z21 Asymptomatic human immunodeficiency virus [HIV] infection status; R07.89 Other chest pain; Z86.2 Personal history of diseases of the blood and blood-forming organs and certain disorders involving the immune mechanism; Z87.42 Personal history of other diseases of the female genital tract; Z63.4 Disappearance and death of family member; Z90.49 Acquired absence of other specified parts of digestive tract; Z88.1 Allergy status to other antibiotic agents
CPT/HCPCS: 36415; 93005; 93010; C9803; U0003; U0005

== ENCOUNTER 2020-09-22 17:50 | Emergency (ER) | payer OTHER ==
[2020-09-22 18:04] VITALS: BP 109/69; PULSE 73; TEMP 98.1; BMI 24.3
== END 2020-09-22 20:41 | disposition left against medical advice (07) ==
LOC: JER 17:50
DX: R20.9 Unspecified disturbances of skin sensation (principal)
CPT/HCPCS: 93005; 93010; 99284-25

== ENCOUNTER 2020-09-22 22:45 | Emergency (ER) | payer OTHER ==
[2020-09-22 23:09] VITALS: TEMP 97.8; BMI 24.3
[2020-09-22] MEDS ORDERED: LACTATED RINGERS SOLUTION 1000 ML INFUS.BAG IV ONE (23:13)
[2020-09-22 23:16] LABS: EOS % 2.3 % (0-4.5); HEMATOCRIT 40.3 % (32.4-45.2); HEMOGLOBIN 13.2 GM/dL (10.7-15.3); LYMPH % 54.8 % (8-40); MCH 30.7 pg (25.7-33.7); MCHC 32.8 g/dl (32.0-36.0); MEAN CELL VOLUME 93.5 fl (80-96); MONO % 11.8 % (3.8-10.2); NEUT % 30.1 % (42.8-82.8); PLATELET COUNT 161 K/MM3 (134-434); RBC 4.31 M/mm3 (3.60-5.2); RDW 14.4 % (11.6-15.6); WHITE BLOOD COUNT 3.6 K/mm3 (4.0-10.0)
[2020-09-22 23:45] LABS: CHLORIDE 109 mmol/L (98-107); SODIUM 143 mmol/L (136-145)
[2020-09-22 23:47] LABS: ALBUMIN 3.5 g/dl (3.4-5.0); ANION GAP 6 MMOL/L (8-16); BLOOD UREA NITROGEN 25.2 mg/dL (7-18); CALCIUM 9.1 mg/dL (8.5-10.1); CO2 28 mmol/L (21-32); GLUCOSE,RANDOM 65 mg/dL (74-106)
[2020-09-22 23:50] LABS: CREATININE 1.1 mg/dL (0.55-1.3); SGOT/AST 27 U/L (15-37); SGPT/ALT 23 U/L (13-61)
[2020-09-22 23:52] LABS: BILIRUBIN,TOTAL 0.3 mg/dL (0.2-1); TOT PROT 7.1 g/dl (6.4-8.2)
[2020-09-22 23:53] LABS: ALK PHOS 113 U/L (45-117)
[2020-09-23 00:45] VITALS: BP 105/72; PULSE 64
== END 2020-09-23 00:44 | disposition home or self-care (01) ==
LOC: JER 22:45
DX: R07.9 Chest pain, unspecified (principal); F14.20 Cocaine dependence, uncomplicated; F10.230 Alcohol dependence with withdrawal, uncomplicated
CPT/HCPCS: 71045-TC-FY; 80053; 82550; 83735; 84484; 85025; 93005; 93010; 99284-25

== ENCOUNTER 2021-01-27 17:46 | Inpatient (IN) | payer OTHER ==
[2021-01-27 19:38] VITALS: BMI 24.7
[2021-01-27] MEDS ORDERED: MAG HYDROX/AL HYDROX/SIMETH 30 ML UNIT-DOSE CUP PO PRN (20:53)
[2021-01-27] MEDS ORDERED: MENTHOL/PHENOL 1 EACH UD MM PRN (20:53)
[2021-01-27] MEDS ORDERED: LORazepam 1 MG TABLET PO PRN (20:53)
[2021-01-27] MEDS ORDERED: METHOCARBAMOL 500 MG TABLET PO PRN (20:53)
[2021-01-27] MEDS ORDERED: IBUPROFEN 400 MG TABLET (FP) PO PRN (20:53)
[2021-01-27] MEDS ORDERED: ONDANSETRON *ODT* 4 MG TABLET SL PRN (20:53)
[2021-01-27] MEDS ORDERED: BISMUTH SUBSALICYLATE 524 MG/30 ML PO PRN (20:53)
[2021-01-27] MEDS ORDERED: ACETAMINOPHEN 325 MG TABLET (FP) PO PRN ×2 (20:53)
[2021-01-27] MEDS ORDERED: MAGNESIUM CITRATE 300 ML BOTTLE PO PRN (20:53)
[2021-01-27] MEDS ORDERED: MAGNESIUM HYDROX 2400MG/30ML ORAL SUSPENSION 30 ML CUP PO PRN (20:53)
[2021-01-27] MEDS ORDERED: NICOTINE 10 MG CARTRIDGE (INHALER) IH PRN (20:53)
[2021-01-27] MEDS ORDERED: FLU VACC QS2021-22(6MOS UP)/PF 60 MCG/0.5 ML SYRINGE IM ONE (23:25)
[2021-01-28] MEDS: MELATONIN 5 MG TABLETS PO SCH ×2 (00:27→22:29)
[2021-01-28] MEDS: hydrOXYzine PAMOATE 25 MG CAPSULE (FP) PO SCH ×6 (00:27→22:29)
[2021-01-28] MEDS: THIAMINE HCL 100 MG TABLET (FP) PO SCH ×2 (00:27→22:29)
[2021-01-28] MEDS: LORazepam 2 MG TABLET PO SCH ×6 (00:27→22:29)
[2021-01-28] MEDS: valACYclovir HCL 500 MG TABLET (FP) PO SCH (10:51)
[2021-01-28] MEDS: PRENATAL VITAMINS W/ FOLIC ACID TABLET (FP) PO SCH (10:52)
[2021-01-28] MEDS: EMTRICITAB/RILPIVIRI/TENOF ALA (ODEFSEY) TABLET PO SCH (12:43)
[2021-01-28] MEDS: VITAMINS A AND D TOPICAL OINTMENT 60 GM TUBE TP SCH ×2 (14:30→23:16)
[2021-01-29] MEDS: LORazepam 1 MG TABLET PO SCH ×4 (05:41→22:25)
[2021-01-29] MEDS: hydrOXYzine PAMOATE 25 MG CAPSULE (FP) PO SCH (05:41)
[2021-01-29] MEDS: valACYclovir HCL 500 MG TABLET (FP) PO SCH (10:11)
[2021-01-29] MEDS: EMTRICITAB/RILPIVIRI/TENOF ALA (ODEFSEY) TABLET PO SCH (10:11)
[2021-01-29] MEDS: VITAMINS A AND D TOPICAL OINTMENT 60 GM TUBE TP SCH ×2 (10:11→22:27)
[2021-01-29] MEDS: PRENATAL VITAMINS W/ FOLIC ACID TABLET (FP) PO SCH (10:12)
[2021-01-29] MEDS ORDERED: FLU VACC QS2021-22(6MOS UP)/PF 60 MCG/0.5 ML SYRINGE IM ONE (12:00)
[2021-01-29] MEDS: THIAMINE HCL 100 MG TABLET (FP) PO SCH (22:24)
[2021-01-29] MEDS: MELATONIN 5 MG TABLETS PO SCH (22:25)
[2021-01-29] MEDS: hydrOXYzine PAMOATE 25 MG CAPSULE (FP) PO PRN (22:26)
[2021-01-30] MEDS ORDERED: LORazepam 0.5 MG TABLET PO PRN
[2021-01-30] MEDS: LORazepam 0.5 MG TABLET PO SCH ×4 (05:13→22:19)
[2021-01-30] MEDS: hydrOXYzine PAMOATE 25 MG CAPSULE (FP) PO PRN ×3 (05:14→22:20)
[2021-01-30] MEDS: valACYclovir HCL 500 MG TABLET (FP) PO SCH (10:17)
[2021-01-30] MEDS: EMTRICITAB/RILPIVIRI/TENOF ALA (ODEFSEY) TABLET PO SCH (10:17)
[2021-01-30] MEDS: VITAMINS A AND D TOPICAL OINTMENT 60 GM TUBE TP SCH ×2 (10:17→22:51)
[2021-01-30] MEDS: PRENATAL VITAMINS W/ FOLIC ACID TABLET (FP) PO SCH (10:17)
[2021-01-30] MEDS: THIAMINE HCL 100 MG TABLET (FP) PO SCH (22:19)
[2021-01-30] MEDS: MELATONIN 5 MG TABLETS PO SCH (22:19)
[2021-01-31] MEDS ORDERED: LORazepam 0.5 MG TABLET PO ONE (05:00)
[2021-01-31 09:07] VITALS: BP 109/65; PULSE 72; TEMP 96.9
[2021-01-31 11:02] LABS: ALBUMIN 3.5 g/dl (3.4-5.0); CALCIUM 9.2 mg/dL (8.5-10.1)
[2021-01-31 11:03] LABS: BLOOD UREA NITROGEN 20.2 mg/dL (7-18)
[2021-01-31 11:06] LABS: CREATININE 0.9 mg/dL (0.55-1.3)
[2021-01-31 11:07] LABS: BILIRUBIN,TOTAL 0.5 mg/dL (0.2-1); TOT PROT 7.5 g/dl (6.4-8.2)
[2021-01-31 11:10] LABS: HEMATOCRIT 41.1 % (32.4-45.2); HEMOGLOBIN 13.6 GM/dL (10.7-15.3); MCH 30.9 pg (25.7-33.7); MCHC 33.2 g/dl (32.0-36.0); MEAN CELL VOLUME 93.3 fl (80-96); MEAN PLT VOLUME 9.6 fl (7.5-11.1); PLATELET COUNT 173 10^3/uL (134-434); RBC 4.41 M/mm3 (3.60-5.2); RDW 14.3 % (11.6-15.6); WHITE BLOOD COUNT 3.7 K/mm3 (4.0-10.0)
== END 2021-01-31 09:22 | disposition home or self-care (01) | DRG 897 ==
LOC: YASAS 17:46 → Y3N 21:07
PROVIDERS: ADMIT Allergy & Immunology; ATTEND Allergy & Immunology
PROC: HZ2ZZZZ Detoxification Services for Substance Abuse Treatment (ICD-10-PCS; principal; 2021-01-27)
DX: F10.230 Alcohol dependence with withdrawal, uncomplicated (principal); F14.20 Cocaine dependence, uncomplicated; F19.282 Other psychoactive substance dependence with psychoactive substance-induced sleep disorder; F12.20 Cannabis dependence, uncomplicated; F17.210 Nicotine dependence, cigarettes, uncomplicated; F19.24 Other psychoactive substance dependence with psychoactive substance-induced mood disorder; F51.05 Insomnia due to other mental disorder; Z21 Asymptomatic human immunodeficiency virus [HIV] infection status; Z88.1 Allergy status to other antibiotic agents
CPT/HCPCS: 36415; 80053; 85027; 86593; 86780; 90686; C9803; G0008; U0003; U0005

== ENCOUNTER 2021-03-16 13:09 | Inpatient (IN) | payer OTHER ==
[2021-03-16 13:36] VITALS: BMI 24.2
[2021-03-16] MEDS ORDERED: ACETAMINOPHEN 325 MG TABLET (FP) PO PRN ×2 (13:49)
[2021-03-16] MEDS ORDERED: MAGNESIUM HYDROX 2400MG/30ML ORAL SUSPENSION 30 ML CUP PO PRN (13:49)
[2021-03-16] MEDS ORDERED: MENTHOL/PHENOL 1 EACH UD MM PRN (13:49)
[2021-03-16] MEDS ORDERED: MAG HYDROX/AL HYDROX/SIMETH 30 ML UNIT-DOSE CUP PO PRN (13:49)
[2021-03-16] MEDS ORDERED: P-EPHED 60MG/TRIPROLIDI 2.5MG TABLET PO PRN (13:49)
[2021-03-16] MEDS ORDERED: IBUPROFEN 400 MG TABLET (FP) PO PRN (13:49)
[2021-03-16] MEDS ORDERED: guaiFENesin 200 MG/10 ML 10 ML UNIT-DOSE CUPS PO PRN (13:49)
[2021-03-16] MEDS ORDERED: ONDANSETRON *ODT* 4 MG TABLET SL PRN (13:49)
[2021-03-16] MEDS ORDERED: MAGNESIUM CITRATE 300 ML BOTTLE PO PRN (13:49)
[2021-03-16] MEDS ORDERED: BISMUTH SUBSALICYLATE 524 MG/30 ML PO PRN (13:49)
[2021-03-16] MEDS ORDERED: diazePAM 5 MG TABLET PO PRN (13:51)
[2021-03-16] MEDS: VITAMINS A AND D TOPICAL OINTMENT 60 GM TUBE TP SCH (18:09)
[2021-03-16] MEDS ORDERED: PATIENT'S OWN MEDICATION (NON-FORMULARY) (Cyclosporine [Restasis] 1 EACH Droperette) OU SCH (22:00)
[2021-03-16] MEDS: TETRAHYDROZOLINE HCL EYE DROPS OU PRN (22:42)
[2021-03-16] MEDS: MELATONIN 5 MG TABLETS PO SCH (22:42)
[2021-03-16] MEDS: THIAMINE HCL 100 MG TABLET (FP) PO SCH (22:42)
[2021-03-17] MEDS: VITAMINS A AND D TOPICAL OINTMENT 60 GM TUBE TP SCH ×5 (01:00→23:04)
[2021-03-17] MEDS ORDERED: EMTRICITAB/RILPIVIRI/TENOF ALA (ODEFSEY) TABLET PO SCH (10:00)
[2021-03-17] MEDS: hydrOXYzine PAMOATE 25 MG CAPSULE (FP) PO PRN ×2 (10:19→13:55)
[2021-03-17] MEDS: TETRAHYDROZOLINE HCL EYE DROPS OU PRN ×2 (10:19→22:14)
[2021-03-17] MEDS: METHOCARBAMOL 500 MG TABLET PO PRN (10:19)
[2021-03-17] MEDS: valACYclovir HCL 500 MG TABLET (FP) PO SCH (10:19)
[2021-03-17] MEDS: PRENATAL VITAMINS W/ FOLIC ACID TABLET (FP) PO SCH (10:19)
[2021-03-17 11:11] LABS: HEMOGLOBIN 12.8 GM/dL (10.7-15.3); MCH 30.9 pg (25.7-33.7); MCHC 32.8 g/dl (32.0-36.0); MEAN CELL VOLUME 94.1 fl (80-96); MEAN PLT VOLUME 9.4 fl (7.5-11.1); PLATELET COUNT 205 10^3/uL (134-434); RBC 4.15 M/mm3 (3.60-5.2); RDW 13.8 % (11.6-15.6); WHITE BLOOD COUNT 3.2 K/mm3 (4.0-10.0)
[2021-03-17] MEDS ORDERED: LORazepam 0.5 MG TABLET PO PRN (13:16)
[2021-03-17 14:02] LABS: ALBUMIN 3.5 g/dl (3.4-5.0); BILIRUBIN,TOTAL 0.6 mg/dL (0.2-1); BLOOD UREA NITROGEN 19.6 mg/dL (7-18); CALCIUM 8.9 mg/dL (8.5-10.1); CREATININE 0.9 mg/dL (0.55-1.3); TOT PROT 7.2 g/dl (6.4-8.2)
[2021-03-17] MEDS: LORazepam 1 MG TABLET PO SCH ×2 (17:47→22:13)
[2021-03-17] MEDS: MELATONIN 5 MG TABLETS PO SCH (22:10)
[2021-03-17] MEDS: THIAMINE HCL 100 MG TABLET (FP) PO SCH (22:10)
[2021-03-18] MEDS: hydrOXYzine PAMOATE 25 MG CAPSULE (FP) PO PRN ×4 (06:03→22:09)
[2021-03-18] MEDS: TETRAHYDROZOLINE HCL EYE DROPS OU PRN ×3 (06:04→22:11)
[2021-03-18] MEDS: VITAMINS A AND D TOPICAL OINTMENT 60 GM TUBE TP SCH ×3 (06:04→18:00)
[2021-03-18] MEDS: LORazepam 0.5 MG TABLET PO SCH ×4 (06:04→22:09)
[2021-03-18] MEDS: EMTRICITAB/RILPIVIRI/TENOF ALA (ODEFSEY) TABLET PO SCH (08:17)
[2021-03-18] MEDS: METHOCARBAMOL 500 MG TABLET PO PRN (10:16)
[2021-03-18] MEDS: valACYclovir HCL 500 MG TABLET (FP) PO SCH (10:16)
[2021-03-18] MEDS: PRENATAL VITAMINS W/ FOLIC ACID TABLET (FP) PO SCH (10:16)
[2021-03-18] MEDS: SIMETHICONE 80 MG TAB.CHEW (FP) PO PRN ×2 (14:29→17:57)
[2021-03-18] MEDS: MELATONIN 5 MG TABLETS PO SCH (22:08)
[2021-03-18] MEDS: THIAMINE HCL 100 MG TABLET (FP) PO SCH (22:09)
[2021-03-19] MEDS: VITAMINS A AND D TOPICAL OINTMENT 60 GM TUBE TP SCH ×4 (00:40→18:01)
[2021-03-19] MEDS ORDERED: LORazepam 0.5 MG TABLET PO ONE (05:00)
[2021-03-19] MEDS: EMTRICITAB/RILPIVIRI/TENOF ALA (ODEFSEY) TABLET PO SCH (08:19)
[2021-03-19] MEDS: METHOCARBAMOL 500 MG TABLET PO PRN (10:15)
[2021-03-19] MEDS: PRENATAL VITAMINS W/ FOLIC ACID TABLET (FP) PO SCH (10:15)
[2021-03-19] MEDS: valACYclovir HCL 500 MG TABLET (FP) PO SCH (10:16)
[2021-03-19] MEDS: hydrOXYzine PAMOATE 25 MG CAPSULE (FP) PO PRN ×3 (10:16→22:15)
[2021-03-19] MEDS: SIMETHICONE 80 MG TAB.CHEW (FP) PO PRN (10:16)
[2021-03-19] MEDS: TETRAHYDROZOLINE HCL EYE DROPS OU PRN ×2 (10:18→22:18)
[2021-03-19] MEDS ORDERED: DIPHENOXYLATE 2.5/ATROPINE.025 1 COMBO TABLET PO ONE (11:06)
[2021-03-19] MEDS: FAMOTIDINE 20 MG TABLET PO SCH ×2 (12:46→22:15)
[2021-03-19 20:50] VITALS: TEMP 97.5
[2021-03-19] MEDS: THIAMINE HCL 100 MG TABLET (FP) PO SCH (22:15)
[2021-03-19] MEDS: MELATONIN 5 MG TABLETS PO SCH (22:15)
[2021-03-20] MEDS: SIMETHICONE 80 MG TAB.CHEW (FP) PO PRN (00:48)
[2021-03-20] MEDS: VITAMINS A AND D TOPICAL OINTMENT 60 GM TUBE TP SCH ×2 (01:13→05:49)
[2021-03-20] MEDS: EMTRICITAB/RILPIVIRI/TENOF ALA (ODEFSEY) TABLET PO SCH (07:52)
[2021-03-20 09:35] VITALS: BP 122/71; PULSE 70
== END 2021-03-20 09:32 | disposition home or self-care (01) | DRG 897 ==
LOC: YASAS 13:09 → Y6N 14:03
PROVIDERS: ADMIT Allergy & Immunology; ATTEND Allergy & Immunology
PROC: HZ2ZZZZ Detoxification Services for Substance Abuse Treatment (ICD-10-PCS; principal; 2021-03-16)
DX: F10.230 Alcohol dependence with withdrawal, uncomplicated (principal); F14.20 Cocaine dependence, uncomplicated; F17.210 Nicotine dependence, cigarettes, uncomplicated; Z21 Asymptomatic human immunodeficiency virus [HIV] infection status; A60.00 Herpesviral infection of urogenital system, unspecified; D72.819 Decreased white blood cell count, unspecified; R01.1 Cardiac murmur, unspecified; Z88.0 Allergy status to penicillin; Z88.1 Allergy status to other antibiotic agents
CPT/HCPCS: 36415; 80053; 85027; 86593; 86780; C9803; U0003; U0005

== ENCOUNTER 2021-05-31 09:56 | Inpatient (IN) | payer OTHER ==
[2021-05-31] MEDS ORDERED: MAGNESIUM HYDROX 2400MG/30ML ORAL SUSPENSION 30 ML CUP PO PRN (10:20)
[2021-05-31] MEDS ORDERED: ACETAMINOPHEN 325 MG TABLET (FP) PO PRN ×2 (10:20)
[2021-05-31] MEDS ORDERED: MAG HYDROX/AL HYDROX/SIMETH 30 ML UNIT-DOSE CUP PO PRN (10:20)
[2021-05-31] MEDS ORDERED: ONDANSETRON *ODT* 4 MG TABLET SL PRN (10:20)
[2021-05-31] MEDS ORDERED: METHOCARBAMOL 500 MG TABLET PO PRN (10:20)
[2021-05-31] MEDS ORDERED: IBUPROFEN 400 MG TABLET (FP) PO PRN (10:20)
[2021-05-31] MEDS ORDERED: BISMUTH SUBSALICYLATE 262 MG/15 ML BTL PO PRN (10:20)
[2021-05-31] MEDS ORDERED: NICOTINE 10 MG CARTRIDGE (INHALER) IH PRN (10:20)
[2021-05-31] MEDS ORDERED: diazePAM 5 MG TABLET PO PRN (10:20)
[2021-05-31] MEDS ORDERED: MENTHOL/PHENOL 1 EACH UD MM PRN (10:20)
[2021-05-31] MEDS ORDERED: MAGNESIUM CITRATE 300 ML BOTTLE PO PRN (10:20)
[2021-05-31 10:54] VITALS: BMI 24.3
[2021-05-31] MEDS: PRENATAL VITAMINS W/ FOLIC ACID TABLET (FP) PO SCH (12:30)
[2021-05-31] MEDS: diazePAM 5 MG TABLET PO SCH ×3 (12:30→22:51)
[2021-05-31] MEDS: VITAMINS A AND D TOPICAL OINTMENT 60 GM TUBE TP SCH ×3 (12:30→23:03)
[2021-05-31 13:08] LABS: HEMATOCRIT 40.3 % (32.4-45.2); HEMOGLOBIN 13.5 GM/dL (10.7-15.3); MCH 30.6 pg (25.7-33.7); MCHC 33.4 g/dl (32.0-36.0); MEAN CELL VOLUME 91.8 fl (80-96); MEAN PLT VOLUME 8.9 fl (7.5-11.1); PLATELET COUNT 188 10^3/uL (134-434); RBC 4.39 M/mm3 (3.60-5.2); RDW 14.1 % (11.6-15.6); WHITE BLOOD COUNT 3.9 K/mm3 (4.0-10.0)
[2021-05-31] MEDS: NICOTINE 21 MG/24 HOURS TOPICAL PATCH TD SCH (13:09)
[2021-05-31 13:24] LABS: ALBUMIN 4.1 g/dl (3.4-5.0); BLOOD UREA NITROGEN 15.2 mg/dL (7-18); CALCIUM 9.1 mg/dL (8.5-10.1)
[2021-05-31 13:26] LABS: CREATININE 0.9 mg/dL (0.55-1.3)
[2021-05-31 13:28] LABS: BILIRUBIN,TOTAL 0.6 mg/dL (0.2-1); TOT PROT 8.1 g/dl (6.4-8.2)
[2021-05-31] MEDS: hydrOXYzine PAMOATE 25 MG CAPSULE (FP) PO SCH ×3 (14:20→22:51)
[2021-05-31] MEDS: NAPHAZOLINE/PHENIRAMINE OPHTHALMIC 15 ML BOTTLE OU SCH ×2 (15:01→22:50)
[2021-05-31] MEDS: MELATONIN 5 MG TABLETS PO SCH (22:51)
[2021-05-31] MEDS: THIAMINE HCL 100 MG TABLET (FP) PO SCH (22:51)
[2021-06-01] MEDS: hydrOXYzine PAMOATE 25 MG CAPSULE (FP) PO SCH ×5 (05:54→22:37)
[2021-06-01] MEDS: diazePAM 5 MG TABLET PO SCH ×4 (05:54→22:37)
[2021-06-01] MEDS: VITAMINS A AND D TOPICAL OINTMENT 60 GM TUBE TP SCH ×4 (05:55→23:21)
[2021-06-01] MEDS: valACYclovir HCL 500 MG TABLET (FP) PO SCH (10:18)
[2021-06-01] MEDS: PRENATAL VITAMINS W/ FOLIC ACID TABLET (FP) PO SCH (10:18)
[2021-06-01] MEDS: EMTRICITAB/RILPIVIRI/TENOF ALA (ODEFSEY) TABLET PO SCH (10:47)
[2021-06-01] MEDS: NICOTINE 21 MG/24 HOURS TOPICAL PATCH TD SCH (10:47)
[2021-06-01] MEDS: NAPHAZOLINE/PHENIRAMINE OPHTHALMIC 15 ML BOTTLE OU SCH ×2 (10:47→22:36)
[2021-06-01] MEDS: MELATONIN 5 MG TABLETS PO SCH (22:37)
[2021-06-01] MEDS: THIAMINE HCL 100 MG TABLET (FP) PO SCH (22:37)
[2021-06-02] MEDS: diazePAM 5 MG TABLET PO SCH ×3 (05:38→22:14)
[2021-06-02] MEDS: VITAMINS A AND D TOPICAL OINTMENT 60 GM TUBE TP SCH ×4 (05:38→23:56)
[2021-06-02] MEDS: hydrOXYzine PAMOATE 25 MG CAPSULE (FP) PO SCH ×5 (05:38→22:14)
[2021-06-02] MEDS: EMTRICITAB/RILPIVIRI/TENOF ALA (ODEFSEY) TABLET PO SCH (08:07)
[2021-06-02] MEDS: NICOTINE 21 MG/24 HOURS TOPICAL PATCH TD SCH (10:18)
[2021-06-02] MEDS: valACYclovir HCL 500 MG TABLET (FP) PO SCH (10:19)
[2021-06-02] MEDS: PRENATAL VITAMINS W/ FOLIC ACID TABLET (FP) PO SCH (10:19)
[2021-06-02] MEDS: NAPHAZOLINE/PHENIRAMINE OPHTHALMIC 15 ML BOTTLE OU SCH ×2 (10:20→22:15)
[2021-06-02] MEDS: THIAMINE HCL 100 MG TABLET (FP) PO SCH (22:14)
[2021-06-02] MEDS: MELATONIN 5 MG TABLETS PO SCH (22:14)
[2021-06-03] MEDS: diazePAM 5 MG TABLET PO SCH ×2 (06:25→17:25)
[2021-06-03] MEDS: hydrOXYzine PAMOATE 25 MG CAPSULE (FP) PO SCH ×5 (06:25→22:17)
[2021-06-03] MEDS: VITAMINS A AND D TOPICAL OINTMENT 60 GM TUBE TP SCH ×4 (08:20→23:55)
[2021-06-03] MEDS: valACYclovir HCL 500 MG TABLET (FP) PO SCH (10:10)
[2021-06-03] MEDS: PRENATAL VITAMINS W/ FOLIC ACID TABLET (FP) PO SCH (10:11)
[2021-06-03] MEDS: EMTRICITAB/RILPIVIRI/TENOF ALA (ODEFSEY) TABLET PO SCH (10:12)
[2021-06-03] MEDS: NAPHAZOLINE/PHENIRAMINE OPHTHALMIC 15 ML BOTTLE OU SCH ×2 (10:12→22:17)
[2021-06-03] MEDS: NICOTINE 21 MG/24 HOURS TOPICAL PATCH TD SCH (11:05)
[2021-06-03 14:11] LABS: SARS-CoV-2 NAA Not Detected (Not Detected)
[2021-06-03] MEDS: FLUTICASONE PROP 0.05% 16 GM NASAL SPRAY NS SCH (22:16)
[2021-06-03] MEDS: MELATONIN 5 MG TABLETS PO SCH (22:17)
[2021-06-03] MEDS: THIAMINE HCL 100 MG TABLET (FP) PO SCH (22:17)
[2021-06-04] MEDS ORDERED: diazePAM 5 MG TABLET PO ONE (06:00)
[2021-06-04] MEDS: hydrOXYzine PAMOATE 25 MG CAPSULE (FP) PO SCH ×2 (06:20→10:22)
[2021-06-04] MEDS: VITAMINS A AND D TOPICAL OINTMENT 60 GM TUBE TP SCH (06:48)
[2021-06-04 09:11] VITALS: BP 116/72; PULSE 73; TEMP 97.8
[2021-06-04] MEDS: EMTRICITAB/RILPIVIRI/TENOF ALA (ODEFSEY) TABLET PO SCH (10:21)
[2021-06-04] MEDS: FLUTICASONE PROP 0.05% 16 GM NASAL SPRAY NS SCH (10:21)
[2021-06-04] MEDS: NICOTINE 21 MG/24 HOURS TOPICAL PATCH TD SCH (10:21)
[2021-06-04] MEDS: NAPHAZOLINE/PHENIRAMINE OPHTHALMIC 15 ML BOTTLE OU SCH (10:22)
[2021-06-04] MEDS: valACYclovir HCL 500 MG TABLET (FP) PO SCH (10:22)
[2021-06-04] MEDS: PRENATAL VITAMINS W/ FOLIC ACID TABLET (FP) PO SCH (10:22)
== END 2021-06-04 11:49 | disposition home or self-care (01) | DRG 897 ==
LOC: YASAS 09:56 → Y6N 10:58 → Y3N 11:08
PROVIDERS: ADMIT Allergy & Immunology; ATTEND Allergy & Immunology
PROC: HZ2ZZZZ Detoxification Services for Substance Abuse Treatment (ICD-10-PCS; principal; 2021-05-31)
DX: F10.230 Alcohol dependence with withdrawal, uncomplicated (principal); F14.20 Cocaine dependence, uncomplicated; F17.210 Nicotine dependence, cigarettes, uncomplicated; Z21 Asymptomatic human immunodeficiency virus [HIV] infection status; A60.00 Herpesviral infection of urogenital system, unspecified; A53.0 Latent syphilis, unspecified as early or late; B18.2 Chronic viral hepatitis C; Z86.19 Personal history of other infectious and parasitic diseases; Z86.11 Personal history of tuberculosis; Z88.1 Allergy status to other antibiotic agents
CPT/HCPCS: 36415; 80053; 85027; 86593; 86780; C9803; U0003; U0005

== ENCOUNTER 2021-07-29 11:48 | Inpatient (IN) | payer OTHER ==
[2021-07-29] MEDS ORDERED: MAG HYDROX/AL HYDROX/SIMETH 30 ML UNIT-DOSE CUP PO PRN (13:39)
[2021-07-29] MEDS ORDERED: NICOTINE 10 MG CARTRIDGE (INHALER) IH PRN (13:39)
[2021-07-29] MEDS ORDERED: LOPERAMIDE HCL 2 MG CAPSULE PO PRN (13:39)
[2021-07-29] MEDS ORDERED: MAGNESIUM HYDROX 2400MG/30ML ORAL SUSPENSION 30 ML CUP PO PRN (13:39)
[2021-07-29] MEDS ORDERED: LORazepam 1 MG TABLET PO PRN (13:39)
[2021-07-29] MEDS ORDERED: DICYCLOMINE HCL 10 MG CAPSULE PO PRN (13:39)
[2021-07-29] MEDS ORDERED: BENZOCAINE/MENTHOL (CHLORASEPTIC ) LOZENGE MM PRN (13:39)
[2021-07-29] MEDS ORDERED: IBUPROFEN 400 MG TABLET (FP) PO PRN (13:39)
[2021-07-29] MEDS ORDERED: MAGNESIUM CITRATE 300 ML BOTTLE PO PRN (13:39)
[2021-07-29] MEDS ORDERED: LORazepam 2 MG TABLET PO ONE (13:39)
[2021-07-29] MEDS ORDERED: ACETAMINOPHEN 325 MG TABLET (FP) PO PRN ×2 (13:39)
[2021-07-29] MEDS ORDERED: ONDANSETRON *ODT* 4 MG TABLET SL PRN (13:39)
[2021-07-29] MEDS ORDERED: BISMUTH SUBSALICYLATE 524 MG/30 ML PO PRN (13:39)
[2021-07-29 13:46] VITALS: BMI 24.0
[2021-07-29] MEDS: hydrOXYzine PAMOATE 25 MG CAPSULE (FP) PO SCH ×3 (14:53→21:57)
[2021-07-29] MEDS ORDERED: LORazepam 2 MG TABLET ONE (14:54)
[2021-07-29] MEDS: LORazepam 2 MG TABLET PO SCH ×2 (18:42→21:59)
[2021-07-29] MEDS: MELATONIN 5 MG TABLETS PO SCH (21:57)
[2021-07-29] MEDS: THIAMINE HCL 100 MG TABLET (FP) PO SCH (21:57)
[2021-07-30] MEDS: hydrOXYzine PAMOATE 25 MG CAPSULE (FP) PO SCH ×3 (05:58→13:30)
[2021-07-30] MEDS: LORazepam 2 MG TABLET PO SCH ×4 (05:58→22:31)
[2021-07-30] MEDS: ARTIFICIAL TEARS (POLYVINYL ALCOHOL) OPTH DROPS OU PRN ×2 (06:50→22:34)
[2021-07-30] MEDS ORDERED: EMTRICITAB/RILPIVIRI/TENOF ALA (ODEFSEY) TABLET PO SCH (10:00)
[2021-07-30] MEDS: PRENATAL VITAMINS W/ FOLIC ACID TABLET (FP) PO SCH (10:22)
[2021-07-30] MEDS: valACYclovir HCL 500 MG TABLET (FP) PO SCH (10:23)
[2021-07-30 12:56] LABS: HEMATOCRIT 40.3 % (32.4-45.2); HEMOGLOBIN 13.1 GM/dL (10.7-15.3); MCH 30.2 pg (25.7-33.7); MCHC 32.5 g/dl (32.0-36.0); MEAN CELL VOLUME 93.1 fl (80-96); PLATELET COUNT 177 10^3/uL (134-434); RBC 4.33 M/mm3 (3.60-5.2); WHITE BLOOD COUNT 3.3 K/mm3 (4.0-10.0)
[2021-07-30 13:08] LABS: CALCIUM 8.9 mg/dL (8.5-10.1)
[2021-07-30 13:10] LABS: ALBUMIN 3.3 g/dl (3.4-5.0); BLOOD UREA NITROGEN 18.5 mg/dL (7-18)
[2021-07-30 13:13] LABS: BILIRUBIN,TOTAL 0.8 mg/dL (0.2-1); TOT PROT 7.1 g/dl (6.4-8.2)
[2021-07-30] MEDS: THIAMINE HCL 100 MG TABLET (FP) PO SCH (22:29)
[2021-07-30] MEDS: MELATONIN 5 MG TABLETS PO SCH (22:29)
[2021-07-31] MEDS: LORazepam 1 MG TABLET PO SCH ×4 (05:52→22:09)
[2021-07-31] MEDS ORDERED: VITAMINS A AND D TOPICAL OINTMENT 60 GM TUBE TP ONE (10:30)
[2021-07-31] MEDS: valACYclovir HCL 500 MG TABLET (FP) PO SCH (10:55)
[2021-07-31] MEDS: PRENATAL VITAMINS W/ FOLIC ACID TABLET (FP) PO SCH (10:55)
[2021-07-31] MEDS ORDERED: EMTRICITAB/RILPIVIRI/TENOF ALA (ODEFSEY) TABLET PO ONE (11:30)
[2021-07-31] MEDS: VITAMINS A AND D TOPICAL OINTMENT 60 GM TUBE TP SCH ×2 (12:03→17:53)
[2021-07-31 12:06] LABS: BASO % 0.8 % (0-2.0); EOS % 3.1 % (0-4.5); HEMATOCRIT 39.7 % (32.4-45.2); HEMOGLOBIN 12.7 GM/dL (10.7-15.3); LYMPH % 54.3 % (8-40); MCH 29.8 pg (25.7-33.7); MEAN CELL VOLUME 93.2 fl (80-96); MEAN PLT VOLUME 9.7 fl (7.5-11.1); NEUT % 30.8 % (42.8-82.8); PLATELET COUNT 184 10^3/uL (134-434); RBC 4.27 M/mm3 (3.60-5.2); RDW 13.9 % (11.6-15.6); WHITE BLOOD COUNT 3.5 K/mm3 (4.0-10.0)
[2021-07-31] MEDS: METHOCARBAMOL 500 MG TABLET PO PRN (17:50)
[2021-07-31] MEDS: THIAMINE HCL 100 MG TABLET (FP) PO SCH (22:09)
[2021-07-31] MEDS: MELATONIN 5 MG TABLETS PO SCH (22:09)
[2021-08-01] MEDS ORDERED: LORazepam 0.5 MG TABLET PO PRN
[2021-08-01] MEDS: VITAMINS A AND D TOPICAL OINTMENT 60 GM TUBE TP SCH ×4 (00:13→17:06)
[2021-08-01] MEDS: LORazepam 0.5 MG TABLET PO SCH ×4 (05:28→23:18)
[2021-08-01] MEDS: EMTRICITAB/RILPIVIRI/TENOF ALA (ODEFSEY) TABLET PO SCH (08:03)
[2021-08-01] MEDS: METHOCARBAMOL 500 MG TABLET PO PRN ×2 (10:17→17:55)
[2021-08-01] MEDS: valACYclovir HCL 500 MG TABLET (FP) PO SCH (10:17)
[2021-08-01] MEDS: PRENATAL VITAMINS W/ FOLIC ACID TABLET (FP) PO SCH (10:17)
[2021-08-01] MEDS: MELATONIN 5 MG TABLETS PO SCH (23:05)
[2021-08-01] MEDS: THIAMINE HCL 100 MG TABLET (FP) PO SCH (23:05)
[2021-08-02] MEDS: VITAMINS A AND D TOPICAL OINTMENT 60 GM TUBE TP SCH ×2 (01:14→05:56)
[2021-08-02] MEDS ORDERED: LORazepam 0.5 MG TABLET PO ONE (05:00)
[2021-08-02] MEDS: EMTRICITAB/RILPIVIRI/TENOF ALA (ODEFSEY) TABLET PO SCH (08:19)
[2021-08-02 09:36] VITALS: BP 131/63; PULSE 68; TEMP 97.5
== END 2021-08-02 09:05 | disposition home or self-care (01) | DRG 897 ==
LOC: YASAS 11:48 → Y6N 14:48
PROVIDERS: ADMIT Allergy & Immunology; ATTEND Allergy & Immunology
PROC: HZ2ZZZZ Detoxification Services for Substance Abuse Treatment (ICD-10-PCS; principal; 2021-07-29)
DX: F10.230 Alcohol dependence with withdrawal, uncomplicated (principal); F14.20 Cocaine dependence, uncomplicated; F17.213 Nicotine dependence, cigarettes, with withdrawal; F19.24 Other psychoactive substance dependence with psychoactive substance-induced mood disorder; F41.9 Anxiety disorder, unspecified; F32.A Depression, unspecified; Z21 Asymptomatic human immunodeficiency virus [HIV] infection status; H04.123 Dry eye syndrome of bilateral lacrimal glands; R76.11 Nonspecific reaction to tuberculin skin test without active tuberculosis; Z86.19 Personal history of other infectious and parasitic diseases; Z88.1 Allergy status to other antibiotic agents
CPT/HCPCS: 36415; 80053; 85025; 85027; 86593; 86780; 87811; C9803-CS; U0003; U0005

== ENCOUNTER 2021-09-27 13:47 | Inpatient (IN) | payer OTHER ==
[2021-09-27 14:45] VITALS: BMI 24.0
[2021-09-27] MEDS ORDERED: ONDANSETRON *ODT* 4 MG TABLET SL PRN (15:36)
[2021-09-27] MEDS ORDERED: DICYCLOMINE HCL 10 MG CAPSULE PO PRN (15:36)
[2021-09-27] MEDS ORDERED: LORazepam 1 MG TABLET PO PRN (15:36)
[2021-09-27] MEDS ORDERED: NICOTINE 10 MG CARTRIDGE (INHALER) IH PRN (15:36)
[2021-09-27] MEDS ORDERED: IBUPROFEN 600 MG TABLET (FP) PO PRN (15:36)
[2021-09-27] MEDS ORDERED: MAG HYDROX/AL HYDROX/SIMETH 30 ML UNIT-DOSE CUP PO PRN (15:36)
[2021-09-27] MEDS ORDERED: IBUPROFEN 400 MG TABLET (FP) PO PRN (15:36)
[2021-09-27] MEDS ORDERED: LOPERAMIDE HCL 2 MG CAPSULE PO PRN (15:36)
[2021-09-27] MEDS ORDERED: BENZOCAINE/MENTHOL (CHLORASEPTIC ) LOZENGE MM PRN (15:36)
[2021-09-27] MEDS ORDERED: BISMUTH SUBSALICYLATE 262 MG/15 ML BTL PO PRN (15:36)
[2021-09-27] MEDS ORDERED: MAGNESIUM CITRATE 300 ML BOTTLE PO PRN (15:36)
[2021-09-27] MEDS ORDERED: ACETAMINOPHEN 325 MG TABLET (FP) PO PRN ×2 (15:36)
[2021-09-27] MEDS ORDERED: MAGNESIUM HYDROX 2400MG/30ML ORAL SUSPENSION 30 ML CUP PO PRN (15:36)
[2021-09-27] MEDS: LORazepam 2 MG TABLET PO SCH ×2 (18:43→23:08)
[2021-09-27] MEDS: hydrOXYzine PAMOATE 25 MG CAPSULE (FP) PO PRN (18:43)
[2021-09-27] MEDS ORDERED: ARTIFICIAL TEARS (POLYVINYL ALCOHOL) OPTH DROPS OU PRN (19:08)
[2021-09-27] MEDS: THIAMINE HCL 100 MG TABLET (FP) PO SCH (23:08)
[2021-09-27] MEDS: MELATONIN 5 MG TABLETS PO SCH (23:10)
[2021-09-28] MEDS: VITAMINS A AND D TOPICAL OINTMENT 60 GM TUBE TP SCH ×4 (05:22→23:41)
[2021-09-28] MEDS: LORazepam 2 MG TABLET PO SCH ×4 (05:23→22:51)
[2021-09-28] MEDS: valACYclovir HCL 500 MG TABLET (FP) PO SCH (09:09)
[2021-09-28] MEDS: PRENATAL VITAMINS W/ FOLIC ACID TABLET (FP) PO SCH (09:09)
[2021-09-28] MEDS: EMTRICITAB/RILPIVIRI/TENOF ALA (ODEFSEY) TABLET PO SCH (09:10)
[2021-09-28 11:52] LABS: HEMATOCRIT 44.6 % (32.4-45.2); HEMOGLOBIN 14.3 GM/dL (10.7-15.3); MCH 29.6 pg (25.7-33.7); MCHC 32.1 g/dl (32.0-36.0); MEAN CELL VOLUME 92.4 fl (80-96); PLATELET COUNT 199 10^3/uL (134-434); RBC 4.83 M/mm3 (3.60-5.2); RDW 14.4 % (11.6-15.6); WHITE BLOOD COUNT 5.3 K/mm3 (4.0-10.0)
[2021-09-28 11:58] LABS: CALCIUM 9.7 mg/dL (8.5-10.1)
[2021-09-28 11:59] LABS: ALBUMIN 3.8 g/dl (3.4-5.0); BLOOD UREA NITROGEN 20.6 mg/dL (7-18)
[2021-09-28 12:00] LABS: CREATININE 0.9 mg/dL (0.55-1.3)
[2021-09-28 12:01] LABS: TOT PROT 7.9 g/dl (6.4-8.2)
[2021-09-28 12:02] LABS: BILIRUBIN,TOTAL 0.5 mg/dL (0.2-1)
[2021-09-28] MEDS: hydrOXYzine PAMOATE 25 MG CAPSULE (FP) PO PRN ×2 (18:29→22:50)
[2021-09-28] MEDS: THIAMINE HCL 100 MG TABLET (FP) PO SCH (22:50)
[2021-09-28] MEDS: MELATONIN 5 MG TABLETS PO SCH (22:51)
[2021-09-29] MEDS: VITAMINS A AND D TOPICAL OINTMENT 60 GM TUBE TP SCH ×4 (00:58→18:20)
[2021-09-29] MEDS: LORazepam 1 MG TABLET PO SCH ×4 (05:08→22:36)
[2021-09-29] MEDS: PRENATAL VITAMINS W/ FOLIC ACID TABLET (FP) PO SCH (10:56)
[2021-09-29] MEDS: hydrOXYzine PAMOATE 25 MG CAPSULE (FP) PO PRN ×2 (10:57→22:36)
[2021-09-29] MEDS: valACYclovir HCL 500 MG TABLET (FP) PO SCH (10:57)
[2021-09-29] MEDS: METHOCARBAMOL 500 MG TABLET PO PRN (10:57)
[2021-09-29] MEDS: EMTRICITAB/RILPIVIRI/TENOF ALA (ODEFSEY) TABLET PO SCH (10:58)
[2021-09-29] MEDS: THIAMINE HCL 100 MG TABLET (FP) PO SCH (22:36)
[2021-09-29] MEDS: MELATONIN 5 MG TABLETS PO SCH (22:37)
[2021-09-30] MEDS ORDERED: LORazepam 0.5 MG TABLET PO PRN
[2021-09-30] MEDS: VITAMINS A AND D TOPICAL OINTMENT 60 GM TUBE TP SCH ×4 (01:48→20:02)
[2021-09-30] MEDS: LORazepam 0.5 MG TABLET PO SCH ×5 (07:01→22:36)
[2021-09-30] MEDS: PRENATAL VITAMINS W/ FOLIC ACID TABLET (FP) PO SCH (10:10)
[2021-09-30] MEDS: valACYclovir HCL 500 MG TABLET (FP) PO SCH (10:10)
[2021-09-30] MEDS: hydrOXYzine PAMOATE 25 MG CAPSULE (FP) PO PRN ×3 (10:10→22:23)
[2021-09-30] MEDS: METHOCARBAMOL 500 MG TABLET PO PRN (10:10)
[2021-09-30] MEDS: EMTRICITAB/RILPIVIRI/TENOF ALA (ODEFSEY) TABLET PO SCH (10:11)
[2021-09-30] MEDS: MELATONIN 5 MG TABLETS PO SCH (22:23)
[2021-09-30] MEDS: THIAMINE HCL 100 MG TABLET (FP) PO SCH (22:23)
[2021-10-01] MEDS: VITAMINS A AND D TOPICAL OINTMENT 60 GM TUBE TP SCH ×2 (01:15→06:43)
[2021-10-01] MEDS ORDERED: LORazepam 0.5 MG TABLET PO ONE (05:00)
[2021-10-01] MEDS: EMTRICITAB/RILPIVIRI/TENOF ALA (ODEFSEY) TABLET PO SCH (09:40)
[2021-10-01] MEDS: valACYclovir HCL 500 MG TABLET (FP) PO SCH (09:40)
[2021-10-01] MEDS: PRENATAL VITAMINS W/ FOLIC ACID TABLET (FP) PO SCH (09:40)
[2021-10-01 10:09] VITALS: BP 138/67; PULSE 69; TEMP 97.8
== END 2021-10-01 09:59 | disposition home or self-care (01) | DRG 897 ==
LOC: YASAS 13:47 → Y6N 18:04
PROVIDERS: ADMIT Allergy & Immunology; ATTEND Surgery
PROC: HZ2ZZZZ Detoxification Services for Substance Abuse Treatment (ICD-10-PCS; principal; 2021-09-27)
DX: F10.230 Alcohol dependence with withdrawal, uncomplicated (principal); F14.20 Cocaine dependence, uncomplicated; Z21 Asymptomatic human immunodeficiency virus [HIV] infection status; A60.00 Herpesviral infection of urogenital system, unspecified; H04.123 Dry eye syndrome of bilateral lacrimal glands; Z72.0 Tobacco use; Z86.19 Personal history of other infectious and parasitic diseases; Z86.11 Personal history of tuberculosis; Z88.1 Allergy status to other antibiotic agents
CPT/HCPCS: 36415; 71046-TC-FY; 80053; 85027; 86593; 86780; 87811; C9803-CS; U0003; U0005

== ENCOUNTER 2022-04-08 11:35 | Inpatient (IN) | payer OTHER ==
[2022-04-08 13:13] VITALS: BMI 24.2
[2022-04-08] MEDS ORDERED: MAG HYDROX/AL HYDROX/SIMETH 30 ML UNIT-DOSE CUP PO PRN (15:53)
[2022-04-08] MEDS ORDERED: POLYETHYLENE GLYCOL (HEALTHYLAX) 3350 17 GM PACKET PO PRN (15:53)
[2022-04-08] MEDS ORDERED: BISMUTH SUBSALICYLATE 524 MG/30 ML PO PRN (15:53)
[2022-04-08] MEDS ORDERED: DICYCLOMINE HCL 10 MG CAPSULE PO PRN (15:53)
[2022-04-08] MEDS ORDERED: ACETAMINOPHEN 325 MG TABLET (FP) PO PRN ×2 (15:53)
[2022-04-08] MEDS ORDERED: IBUPROFEN 600 MG TABLET (FP) PO PRN (15:53)
[2022-04-08] MEDS ORDERED: ONDANSETRON *ODT* 4 MG TABLET SL PRN (15:53)
[2022-04-08] MEDS ORDERED: BENZOCAINE/MENTHOL (CHLORASEPTIC ) LOZENGE MM PRN (15:53)
[2022-04-08] MEDS ORDERED: NALOXONE HCL (KLOXXADO) 8 MG SPRAY NS PRN (15:53)
[2022-04-08] MEDS ORDERED: IBUPROFEN 400 MG TABLET (FP) PO PRN (15:53)
[2022-04-08] MEDS ORDERED: MAGNESIUM HYDROX 2400MG/30ML ORAL SUSPENSION 30 ML CUP PO PRN (15:53)
[2022-04-08] MEDS ORDERED: chlordiazePOXIDE HCL 25 MG CAPSULE PO PRN (16:10)
[2022-04-08] MEDS: chlordiazePOXIDE HCL 10 MG CAPSULE PO SCH ×2 (16:57→22:42)
[2022-04-08] MEDS: LOPERAMIDE HCL 2 MG CAPSULE PO PRN (16:57)
[2022-04-08] MEDS ORDERED: ARTIFICIAL TEARS (POLYVINYL ALCOHOL) OPTH DROPS OU PRN (22:00)
[2022-04-08] MEDS: MELATONIN 5 MG TABLETS PO SCH (22:40)
[2022-04-08] MEDS: THIAMINE HCL 100 MG TABLET (FP) PO SCH (22:40)
[2022-04-08] MEDS: VITAMINS A AND D TOPICAL OINTMENT 60 GM TUBE TP SCH (22:40)
[2022-04-08] MEDS: CALCIUM (OYSTER SHELL) 500 MG TABLET (FP) PO SCH (23:58)
[2022-04-09] MEDS: chlordiazePOXIDE HCL 10 MG CAPSULE PO SCH ×4 (05:21→22:32)
[2022-04-09] MEDS: valACYclovir HCL 500 MG TABLET (FP) PO SCH (10:20)
[2022-04-09] MEDS: PRENATAL VITAMINS W/ FOLIC ACID TABLET (FP) PO SCH (10:20)
[2022-04-09] MEDS: CALCIUM (OYSTER SHELL) 500 MG TABLET (FP) PO SCH ×2 (10:20→22:31)
[2022-04-09] MEDS: METHOCARBAMOL 500 MG TABLET PO PRN (10:21)
[2022-04-09] MEDS: hydrOXYzine PAMOATE 25 MG CAPSULE (FP) PO PRN (10:21)
[2022-04-09] MEDS: VITAMINS A AND D TOPICAL OINTMENT 60 GM TUBE TP SCH ×2 (10:23→22:34)
[2022-04-09] MEDS: EMTRICITAB/RILPIVIRI/TENOF ALA (ODEFSEY) TABLET PO SCH (10:23)
[2022-04-09] MEDS ORDERED: CHOLECALCIFEROL (VIT D3) 1,000 UNIT (25 MCG) TABLET PO SCH (11:30)
[2022-04-09] MEDS: PATIENT'S OWN MEDICATION (NON-FORMULARY) (Cyclosporine [Restasis] 1 EACH Droperette) OU SCH ×2 (15:05→22:33)
[2022-04-09] MEDS: MELATONIN 5 MG TABLETS PO SCH (22:31)
[2022-04-09] MEDS: THIAMINE HCL 100 MG TABLET (FP) PO SCH (22:31)
[2022-04-10] MEDS: chlordiazePOXIDE HCL 25 MG CAPSULE PO SCH ×4 (05:58→22:16)
[2022-04-10 09:40] LABS: HEMATOCRIT 41.1 % (32.4-45.2); MCH 29.7 pg (25.7-33.7); MCHC 31.7 g/dl (32.0-36.0); MEAN CELL VOLUME 93.7 fl (80-96); MEAN PLT VOLUME 9.3 fl (7.5-11.1); PLATELET COUNT 166 10^3/uL (134-434); RBC 4.39 M/mm3 (3.60-5.2); RDW 13.8 % (11.6-15.6); WHITE BLOOD COUNT 3.2 K/mm3 (4.0-10.0)
[2022-04-10 10:02] LABS: CALCIUM 8.7 mg/dL (8.5-10.1)
[2022-04-10 10:03] LABS: ALBUMIN 2.8 g/dl (3.4-5.0); BLOOD UREA NITROGEN 17.6 mg/dL (7-18)
[2022-04-10 10:06] LABS: BILIRUBIN,TOTAL 0.4 mg/dL (0.2-1); CREATININE 0.9 mg/dL (0.55-1.3)
[2022-04-10] MEDS: METHOCARBAMOL 500 MG TABLET PO PRN (10:07)
[2022-04-10] MEDS: CALCIUM (OYSTER SHELL) 500 MG TABLET (FP) PO SCH ×2 (10:07→22:16)
[2022-04-10] MEDS: valACYclovir HCL 500 MG TABLET (FP) PO SCH (10:07)
[2022-04-10] MEDS: PRENATAL VITAMINS W/ FOLIC ACID TABLET (FP) PO SCH (10:10)
[2022-04-10] MEDS: PATIENT'S OWN MEDICATION (NON-FORMULARY) (Cyclosporine [Restasis] 1 EACH Droperette) OU SCH ×2 (10:11→22:18)
[2022-04-10] MEDS: EMTRICITAB/RILPIVIRI/TENOF ALA (ODEFSEY) TABLET PO SCH (10:11)
[2022-04-10] MEDS: VITAMINS A AND D TOPICAL OINTMENT 60 GM TUBE TP SCH ×2 (10:12→22:16)
[2022-04-10] MEDS: THIAMINE HCL 100 MG TABLET (FP) PO SCH (22:16)
[2022-04-10] MEDS: MELATONIN 5 MG TABLETS PO SCH (22:16)
[2022-04-11] MEDS ORDERED: chlordiazePOXIDE HCL 10 MG CAPSULE PO PRN
[2022-04-11] MEDS: chlordiazePOXIDE HCL 10 MG CAPSULE PO SCH ×4 (05:21→22:04)
[2022-04-11] MEDS: PATIENT'S OWN MEDICATION (NON-FORMULARY) (Cyclosporine [Restasis] 1 EACH Droperette) OU SCH ×2 (10:18→22:04)
[2022-04-11] MEDS: EMTRICITAB/RILPIVIRI/TENOF ALA (ODEFSEY) TABLET PO SCH (10:18)
[2022-04-11] MEDS: CALCIUM (OYSTER SHELL) 500 MG TABLET (FP) PO SCH ×2 (10:18→22:04)
[2022-04-11] MEDS: valACYclovir HCL 500 MG TABLET (FP) PO SCH (10:19)
[2022-04-11] MEDS: PRENATAL VITAMINS W/ FOLIC ACID TABLET (FP) PO SCH (10:19)
[2022-04-11] MEDS: VITAMINS A AND D TOPICAL OINTMENT 60 GM TUBE TP SCH ×2 (10:21→22:09)
[2022-04-11] MEDS: LOPERAMIDE HCL 2 MG CAPSULE PO PRN (17:30)
[2022-04-11] MEDS: THIAMINE HCL 100 MG TABLET (FP) PO SCH (22:04)
[2022-04-11] MEDS: MELATONIN 5 MG TABLETS PO SCH (22:05)
[2022-04-12] MEDS: chlordiazePOXIDE HCL 10 MG CAPSULE PO SCH ×2 (05:39→17:49)
[2022-04-12] MEDS: valACYclovir HCL 500 MG TABLET (FP) PO SCH (10:20)
[2022-04-12] MEDS: EMTRICITAB/RILPIVIRI/TENOF ALA (ODEFSEY) TABLET PO SCH (10:20)
[2022-04-12] MEDS: CALCIUM (OYSTER SHELL) 500 MG TABLET (FP) PO SCH ×2 (10:20→22:09)
[2022-04-12] MEDS: PRENATAL VITAMINS W/ FOLIC ACID TABLET (FP) PO SCH (10:21)
[2022-04-12] MEDS: PATIENT'S OWN MEDICATION (NON-FORMULARY) (Cyclosporine [Restasis] 1 EACH Droperette) OU SCH ×2 (10:22→22:10)
[2022-04-12] MEDS: VITAMINS A AND D TOPICAL OINTMENT 60 GM TUBE TP SCH ×2 (10:24→22:10)
[2022-04-12] MEDS: METHOCARBAMOL 500 MG TABLET PO PRN (22:09)
[2022-04-12] MEDS: hydrOXYzine PAMOATE 25 MG CAPSULE (FP) PO PRN (22:09)
[2022-04-12] MEDS: THIAMINE HCL 100 MG TABLET (FP) PO SCH (22:09)
[2022-04-12] MEDS: MELATONIN 5 MG TABLETS PO SCH (22:09)
[2022-04-13] MEDS ORDERED: chlordiazePOXIDE HCL 10 MG CAPSULE PO ONE (05:00)
[2022-04-13 07:22] VITALS: BP 108/80; PULSE 78; RESP 16; TEMP 97.3
[2022-04-13] MEDS: EMTRICITAB/RILPIVIRI/TENOF ALA (ODEFSEY) TABLET PO SCH (09:43)
[2022-04-13] MEDS: CALCIUM (OYSTER SHELL) 500 MG TABLET (FP) PO SCH (09:43)
[2022-04-13] MEDS: PATIENT'S OWN MEDICATION (NON-FORMULARY) (Cyclosporine [Restasis] 1 EACH Droperette) OU SCH (09:43)
[2022-04-13] MEDS: PRENATAL VITAMINS W/ FOLIC ACID TABLET (FP) PO SCH (09:44)
[2022-04-13] MEDS: VITAMINS A AND D TOPICAL OINTMENT 60 GM TUBE TP SCH (09:44)
[2022-04-13] MEDS: valACYclovir HCL 500 MG TABLET (FP) PO SCH (09:44)
== END 2022-04-13 09:00 | disposition home or self-care (01) | DRG 897 ==
LOC: YASAS 11:35 → SUATTDRO 11:35 → Y6N 15:29
PROVIDERS: ADMIT Allergy & Immunology; ATTEND Surgery
PROC: HZ2ZZZZ Detoxification Services for Substance Abuse Treatment (ICD-10-PCS; principal; 2022-04-08)
DX: F10.230 Alcohol dependence with withdrawal, uncomplicated (principal); F14.20 Cocaine dependence, uncomplicated; F19.280 Other psychoactive substance dependence with psychoactive substance-induced anxiety disorder; F19.282 Other psychoactive substance dependence with psychoactive substance-induced sleep disorder; F41.9 Anxiety disorder, unspecified; F32.A Depression, unspecified; Z21 Asymptomatic human immunodeficiency virus [HIV] infection status; H04.323 Acute dacryocystitis of bilateral lacrimal passages; R63.4 Abnormal weight loss; Z68.24 Body mass index [BMI] 24.0-24.9, adult; Z86.11 Personal history of tuberculosis; Z86.19 Personal history of other infectious and parasitic diseases; Z88.1 Allergy status to other antibiotic agents
CPT/HCPCS: 36415; 80053; 81025; 82962; 85027; 86593; 86780; C9803-CS; U0003; U0005

== ENCOUNTER 2022-07-28 14:15 | Inpatient (IN) | payer OTHER ==
[2022-07-28 15:38] VITALS: BMI 24.8
[2022-07-28] MEDS ORDERED: POLYETHYLENE GLYCOL (HEALTHYLAX) 3350 17 GM PACKET PO PRN (18:14)
[2022-07-28] MEDS ORDERED: ONDANSETRON *ODT* 4 MG TABLET SL PRN (18:14)
[2022-07-28] MEDS ORDERED: BISMUTH SUBSALICYLATE 524 MG/30 ML PO PRN (18:14)
[2022-07-28] MEDS ORDERED: NALOXONE HCL (KLOXXADO) 8 MG SPRAY NS PRN (18:14)
[2022-07-28] MEDS ORDERED: chlordiazePOXIDE HCL 25 MG CAPSULE PO PRN (18:14)
[2022-07-28] MEDS ORDERED: guaiFENesin 600 MG TABLET.ER (FP) PO PRN (18:14)
[2022-07-28] MEDS ORDERED: BENZOCAINE/MENTHOL (CHLORASEPTIC ) LOZENGE MM PRN (18:14)
[2022-07-28] MEDS ORDERED: hydrOXYzine PAMOATE 25 MG CAPSULE (FP) PO PRN (18:14)
[2022-07-28] MEDS ORDERED: NICOTINE 10 MG CARTRIDGE (INHALER) IH PRN (18:14)
[2022-07-28] MEDS ORDERED: IBUPROFEN 600 MG TABLET (FP) PO PRN (18:14)
[2022-07-28] MEDS ORDERED: ACETAMINOPHEN 325 MG TABLET (FP) PO PRN (18:14)
[2022-07-28] MEDS ORDERED: MAG HYDROX/AL HYDROX/SIMETH 30 ML UNIT-DOSE CUP PO PRN (18:14)
[2022-07-28] MEDS ORDERED: BENZONATATE 200 MG CAPSULE PO PRN (18:14)
[2022-07-28] MEDS ORDERED: DICYCLOMINE HCL 10 MG CAPSULE PO PRN (18:14)
[2022-07-28] MEDS ORDERED: MAGNESIUM HYDROX 2400MG/30ML ORAL SUSPENSION 30 ML CUP PO PRN (18:14)
[2022-07-28] MEDS ORDERED: IBUPROFEN 400 MG TABLET (FP) PO PRN (18:14)
[2022-07-28] MEDS ORDERED: NALOXONE HCL 0.4 MG/ML VIAL IM PRN (18:14)
[2022-07-28] MEDS ORDERED: LOPERAMIDE HCL 2 MG CAPSULE PO PRN (18:14)
[2022-07-28] MEDS: chlordiazePOXIDE HCL 25 MG CAPSULE PO SCH (22:25)
[2022-07-28] MEDS: MELATONIN 5 MG TABLETS PO SCH (22:25)
[2022-07-28] MEDS: THIAMINE HCL 100 MG TABLET (FP) PO SCH (22:25)
[2022-07-28] MEDS: MINERAL OIL/PET HY-PHL TOPICAL OINTMENT 454 GM JAR TP SCH (23:34)
[2022-07-29] MEDS: chlordiazePOXIDE HCL 25 MG CAPSULE PO SCH ×4 (05:45→22:08)
[2022-07-29] MEDS: EMTRICITAB/RILPIVIRI/TENOF ALA (ODEFSEY) TABLET PO SCH (10:20)
[2022-07-29] MEDS: valACYclovir HCL 500 MG TABLET (FP) PO SCH (10:20)
[2022-07-29] MEDS: MINERAL OIL/PET HY-PHL TOPICAL OINTMENT 454 GM JAR TP SCH ×2 (10:21→22:08)
[2022-07-29] MEDS: PRENATAL VITAMINS W/ FOLIC ACID TABLET (FP) PO SCH (10:21)
[2022-07-29 12:16] LABS: HEMATOCRIT 41.8 % (32.4-45.2); HEMOGLOBIN 13.8 GM/dL (10.7-15.3); MCHC 32.9 g/dl (32.0-36.0); MEAN PLT VOLUME 9.4 fl (7.5-11.1); PLATELET COUNT 208 10^3/uL (134-434); RBC 4.59 M/mm3 (3.60-5.2); RDW 14.8 % (11.6-15.6); WHITE BLOOD COUNT 3.5 K/mm3 (4.0-10.0)
[2022-07-29 12:47] LABS: ALBUMIN 3.4 g/dl (3.4-5.0); BLOOD UREA NITROGEN 17.6 mg/dL (7-18); CALCIUM 9.3 mg/dL (8.5-10.1)
[2022-07-29 12:52] LABS: BILIRUBIN,TOTAL 0.4 mg/dL (0.2-1); TOT PROT 7.5 g/dl (6.4-8.2)
[2022-07-29] MEDS: THIAMINE HCL 100 MG TABLET (FP) PO SCH (22:08)
[2022-07-29] MEDS: MELATONIN 5 MG TABLETS PO SCH (22:08)
[2022-07-29] MEDS: METHOCARBAMOL 500 MG TABLET PO PRN (22:10)
[2022-07-30] MEDS: chlordiazePOXIDE HCL 25 MG CAPSULE PO SCH ×4 (05:30→22:27)
[2022-07-30] MEDS ORDERED: PATIENT'S OWN MEDICATION (NON-FORMULARY) (Cyclosporine [Restasis] 1 EACH Droperette) OP SCH (10:00)
[2022-07-30] MEDS: valACYclovir HCL 500 MG TABLET (FP) PO SCH (10:27)
[2022-07-30] MEDS: EMTRICITAB/RILPIVIRI/TENOF ALA (ODEFSEY) TABLET PO SCH (10:28)
[2022-07-30] MEDS: PRENATAL VITAMINS W/ FOLIC ACID TABLET (FP) PO SCH (10:28)
[2022-07-30] MEDS: MINERAL OIL/PET HY-PHL TOPICAL OINTMENT 454 GM JAR TP SCH ×2 (10:29→22:27)
[2022-07-30] MEDS: RESTASIS OU SCH ×3 (11:12→22:27)
[2022-07-30] MEDS: MELATONIN 5 MG TABLETS PO SCH (22:27)
[2022-07-30] MEDS: THIAMINE HCL 100 MG TABLET (FP) PO SCH (22:27)
[2022-07-30] MEDS: METHOCARBAMOL 500 MG TABLET PO PRN (22:30)
[2022-07-31] MEDS ORDERED: chlordiazePOXIDE HCL 10 MG CAPSULE PO PRN
[2022-07-31] MEDS: chlordiazePOXIDE HCL 10 MG CAPSULE PO SCH ×4 (05:45→22:02)
[2022-07-31] MEDS: PRENATAL VITAMINS W/ FOLIC ACID TABLET (FP) PO SCH (10:09)
[2022-07-31] MEDS: RESTASIS OU SCH ×2 (10:09→22:02)
[2022-07-31] MEDS: valACYclovir HCL 500 MG TABLET (FP) PO SCH (10:09)
[2022-07-31] MEDS: MINERAL OIL/PET HY-PHL TOPICAL OINTMENT 454 GM JAR TP SCH ×2 (10:11→22:03)
[2022-07-31] MEDS: EMTRICITAB/RILPIVIRI/TENOF ALA (ODEFSEY) TABLET PO SCH (10:12)
[2022-07-31] MEDS: MELATONIN 5 MG TABLETS PO SCH (22:02)
[2022-07-31] MEDS: THIAMINE HCL 100 MG TABLET (FP) PO SCH (22:02)
[2022-07-31] MEDS: METHOCARBAMOL 500 MG TABLET PO PRN (22:03)
[2022-08-01] MEDS: chlordiazePOXIDE HCL 10 MG CAPSULE PO SCH ×2 (05:19→17:37)
[2022-08-01 08:55] VITALS: RESP 18
[2022-08-01] MEDS: MINERAL OIL/PET HY-PHL TOPICAL OINTMENT 454 GM JAR TP SCH ×2 (10:11→22:09)
[2022-08-01] MEDS: valACYclovir HCL 500 MG TABLET (FP) PO SCH (10:12)
[2022-08-01] MEDS: PRENATAL VITAMINS W/ FOLIC ACID TABLET (FP) PO SCH (10:12)
[2022-08-01] MEDS: RESTASIS OU SCH ×2 (10:12→22:08)
[2022-08-01] MEDS: EMTRICITAB/RILPIVIRI/TENOF ALA (ODEFSEY) TABLET PO SCH (10:13)
[2022-08-01] MEDS: THIAMINE HCL 100 MG TABLET (FP) PO SCH (22:08)
[2022-08-01] MEDS: MELATONIN 5 MG TABLETS PO SCH (22:09)
[2022-08-01] MEDS: METHOCARBAMOL 500 MG TABLET PO PRN (22:10)
[2022-08-02] MEDS ORDERED: chlordiazePOXIDE HCL 10 MG CAPSULE PO ONE (05:00)
[2022-08-02 06:39] VITALS: BP 113/64; PULSE 62; TEMP 97.7
== END 2022-08-02 08:40 | disposition home or self-care (01) | DRG 897 ==
LOC: YASAS 14:15 → Y6N 18:30 → Y3N 18:56
PROVIDERS: ADMIT Allergy & Immunology; ATTEND Surgery
PROC: HZ2ZZZZ Detoxification Services for Substance Abuse Treatment (ICD-10-PCS; principal; 2022-07-28)
DX: F10.230 Alcohol dependence with withdrawal, uncomplicated (principal); F14.20 Cocaine dependence, uncomplicated; F17.210 Nicotine dependence, cigarettes, uncomplicated; F41.9 Anxiety disorder, unspecified; F32.A Depression, unspecified; Z21 Asymptomatic human immunodeficiency virus [HIV] infection status; H04.123 Dry eye syndrome of bilateral lacrimal glands; R76.8 Other specified abnormal immunological findings in serum; Z86.19 Personal history of other infectious and parasitic diseases; Z88.1 Allergy status to other antibiotic agents
CPT/HCPCS: 36415; 80053; 85027; 86593; 86780; 87811; C9803-CS; U0003; U0005

== ENCOUNTER 2022-11-13 15:35 | Inpatient (IN) | payer OTHER ==
[2022-11-13 17:23] VITALS: BMI 23.6
[2022-11-13] MEDS ORDERED: hydrOXYzine PAMOATE 25 MG CAPSULE (FP) PO PRN (19:14)
[2022-11-13] MEDS ORDERED: NALOXONE HCL (KLOXXADO) 8 MG SPRAY NS PRN (19:14)
[2022-11-13] MEDS ORDERED: MAGNESIUM HYDROX 2400MG/30ML ORAL SUSPENSION 30 ML CUP PO PRN (19:14)
[2022-11-13] MEDS ORDERED: ONDANSETRON *ODT* 4 MG TABLET SL PRN (19:14)
[2022-11-13] MEDS ORDERED: ACETAMINOPHEN 325 MG TABLET (FP) PO PRN (19:14)
[2022-11-13] MEDS ORDERED: DICYCLOMINE HCL 10 MG CAPSULE PO PRN (19:14)
[2022-11-13] MEDS ORDERED: BISMUTH SUBSALICYLATE 524 MG/30 ML PO PRN (19:14)
[2022-11-13] MEDS ORDERED: IBUPROFEN 400 MG TABLET (FP) PO PRN (19:14)
[2022-11-13] MEDS ORDERED: NALOXONE HCL 0.4 MG/ML VIAL IM PRN (19:14)
[2022-11-13] MEDS ORDERED: IBUPROFEN 600 MG TABLET (FP) PO PRN (19:14)
[2022-11-13] MEDS ORDERED: BENZONATATE 200 MG CAPSULE PO PRN (19:14)
[2022-11-13] MEDS ORDERED: guaiFENesin 600 MG TABLET.ER (FP) PO PRN (19:14)
[2022-11-13] MEDS ORDERED: chlordiazePOXIDE HCL 25 MG CAPSULE PO PRN (19:14)
[2022-11-13] MEDS ORDERED: BENZOCAINE/MENTHOL (CHLORASEPTIC ) LOZENGE MM PRN (19:14)
[2022-11-13] MEDS ORDERED: POLYETHYLENE GLYCOL (HEALTHYLAX) 3350 17 GM PACKET PO PRN (19:14)
[2022-11-13] MEDS: MELATONIN 5 MG TABLETS PO SCH (22:36)
[2022-11-13] MEDS: chlordiazePOXIDE HCL 25 MG CAPSULE PO SCH (22:36)
[2022-11-13] MEDS: THIAMINE HCL 100 MG TABLET (FP) PO SCH (22:36)
[2022-11-13] MEDS: METHOCARBAMOL 500 MG TABLET PO PRN (22:36)
[2022-11-14] MEDS: chlordiazePOXIDE HCL 25 MG CAPSULE PO SCH ×4 (05:28→22:15)
[2022-11-14] MEDS: valACYclovir HCL 500 MG TABLET (FP) PO SCH (10:12)
[2022-11-14] MEDS: PRENATAL VITAMINS W/ FOLIC ACID TABLET (FP) PO SCH (10:13)
[2022-11-14] MEDS: EMTRICITAB/RILPIVIRI/TENOF ALA (ODEFSEY) TABLET PO SCH (10:30)
[2022-11-14 12:14] LABS: HEMATOCRIT 42.7 % (32.4-45.2); HEMOGLOBIN 13.5 GM/dL (10.7-15.3); MCH 29.5 pg (25.7-33.7); MCHC 31.7 g/dl (32.0-36.0); MEAN PLT VOLUME 9.6 fl (7.5-11.1); PLATELET COUNT 196 10^3/uL (134-434); RBC 4.59 M/mm3 (3.60-5.2); RDW 14.1 % (11.6-15.6); WHITE BLOOD COUNT 3.9 K/mm3 (4.0-10.0)
[2022-11-14 12:21] LABS: POTASSIUM 4.1 mmol/L (3.5-5.1)
[2022-11-14 12:51] LABS: CALCIUM 8.9 mg/dL (8.5-10.1)
[2022-11-14 12:54] LABS: ALBUMIN 3.3 g/dl (3.4-5.0); BLOOD UREA NITROGEN 23.2 mg/dL (7-18)
[2022-11-14 12:58] LABS: TOT PROT 7.3 g/dl (6.4-8.2)
[2022-11-14 12:59] LABS: BILIRUBIN,TOTAL 0.3 mg/dL (0.2-1)
[2022-11-14] MEDS: MINERAL OIL/PET HY-PHL TOPICAL OINTMENT 454 GM JAR TP SCH ×2 (15:52→22:14)
[2022-11-14] MEDS: MELATONIN 5 MG TABLETS PO SCH (22:14)
[2022-11-14] MEDS: THIAMINE HCL 100 MG TABLET (FP) PO SCH (22:15)
[2022-11-15] MEDS: chlordiazePOXIDE HCL 25 MG CAPSULE PO SCH ×4 (05:10→22:05)
[2022-11-15] MEDS ORDERED: PENICILLIN G BENZATHINE 2,400,000 UNIT/4 ML PFS IM ONE ×2 (09:23→11:29)
[2022-11-15] MEDS: MINERAL OIL/PET HY-PHL TOPICAL OINTMENT 454 GM JAR TP SCH ×2 (10:19→22:06)
[2022-11-15] MEDS: EMTRICITAB/RILPIVIRI/TENOF ALA (ODEFSEY) TABLET PO SCH (10:19)
[2022-11-15] MEDS: valACYclovir HCL 500 MG TABLET (FP) PO SCH (10:20)
[2022-11-15] MEDS: PRENATAL VITAMINS W/ FOLIC ACID TABLET (FP) PO SCH (10:20)
[2022-11-15] MEDS: METHOCARBAMOL 500 MG TABLET PO PRN ×2 (10:23→22:06)
[2022-11-15] MEDS: PATIENT'S OWN MEDICATION (NON-FORMULARY) (Cyclosporine [Restasis] 1 EACH Droperette) OP SCH ×2 (10:41→14:53)
[2022-11-15] MEDS: MELATONIN 5 MG TABLETS PO SCH (22:05)
[2022-11-15] MEDS: ARTIFICIAL TEARS (POLYVINYL ALCOHOL) OPTH DROPS OU PRN (22:05)
[2022-11-15] MEDS: THIAMINE HCL 100 MG TABLET (FP) PO SCH (22:05)
[2022-11-16] MEDS ORDERED: chlordiazePOXIDE HCL 10 MG CAPSULE PO PRN
[2022-11-16] MEDS: chlordiazePOXIDE HCL 10 MG CAPSULE PO SCH ×4 (05:28→22:21)
[2022-11-16] MEDS: MAG HYDROX/AL HYDROX/SIMETH 30 ML UNIT-DOSE CUP PO PRN ×2 (06:09→12:08)
[2022-11-16] MEDS: MINERAL OIL/PET HY-PHL TOPICAL OINTMENT 454 GM JAR TP SCH ×2 (10:08→22:21)
[2022-11-16] MEDS: EMTRICITAB/RILPIVIRI/TENOF ALA (ODEFSEY) TABLET PO SCH (10:09)
[2022-11-16] MEDS: PRENATAL VITAMINS W/ FOLIC ACID TABLET (FP) PO SCH (10:09)
[2022-11-16] MEDS: valACYclovir HCL 500 MG TABLET (FP) PO SCH (10:10)
[2022-11-16] MEDS: METHOCARBAMOL 500 MG TABLET PO PRN (17:05)
[2022-11-16] MEDS: LOPERAMIDE HCL 2 MG CAPSULE PO PRN (19:28)
[2022-11-16] MEDS: THIAMINE HCL 100 MG TABLET (FP) PO SCH (22:20)
[2022-11-16] MEDS: MELATONIN 5 MG TABLETS PO SCH (22:21)
[2022-11-17] MEDS: chlordiazePOXIDE HCL 10 MG CAPSULE PO SCH ×2 (05:53→17:22)
[2022-11-17] MEDS: EMTRICITAB/RILPIVIRI/TENOF ALA (ODEFSEY) TABLET PO SCH (09:50)
[2022-11-17] MEDS: PRENATAL VITAMINS W/ FOLIC ACID TABLET (FP) PO SCH (09:50)
[2022-11-17] MEDS: valACYclovir HCL 500 MG TABLET (FP) PO SCH (09:50)
[2022-11-17] MEDS: MINERAL OIL/PET HY-PHL TOPICAL OINTMENT 454 GM JAR TP SCH ×2 (09:51→21:09)
[2022-11-17] MEDS: LOPERAMIDE HCL 2 MG CAPSULE PO PRN ×2 (14:37→22:09)
[2022-11-17] MEDS: MELATONIN 5 MG TABLETS PO SCH (21:10)
[2022-11-17] MEDS: METHOCARBAMOL 500 MG TABLET PO PRN (21:11)
[2022-11-17] MEDS: THIAMINE HCL 100 MG TABLET (FP) PO SCH (21:11)
[2022-11-17] MEDS: ARTIFICIAL TEARS (POLYVINYL ALCOHOL) OPTH DROPS OU PRN (21:23)
[2022-11-18] MEDS ORDERED: chlordiazePOXIDE HCL 10 MG CAPSULE PO ONE (05:00)
[2022-11-18] MEDS: PRENATAL VITAMINS W/ FOLIC ACID TABLET (FP) PO SCH (09:06)
[2022-11-18] MEDS: valACYclovir HCL 500 MG TABLET (FP) PO SCH (09:07)
[2022-11-18] MEDS: EMTRICITAB/RILPIVIRI/TENOF ALA (ODEFSEY) TABLET PO SCH (09:07)
[2022-11-18] MEDS: MINERAL OIL/PET HY-PHL TOPICAL OINTMENT 454 GM JAR TP SCH (09:07)
[2022-11-18 09:11] VITALS: BP 108/67; PULSE 73; RESP 18; TEMP 96.8
== END 2022-11-18 09:23 | disposition home or self-care (01) | DRG 897 ==
LOC: YASAS 15:35 → Y6N 19:33 → Y3N 19:51
PROVIDERS: ADMIT Allergy & Immunology; ATTEND Surgery
PROC: HZ2ZZZZ Detoxification Services for Substance Abuse Treatment (ICD-10-PCS; principal; 2022-11-13)
DX: F10.230 Alcohol dependence with withdrawal, uncomplicated (principal); F14.20 Cocaine dependence, uncomplicated; F17.210 Nicotine dependence, cigarettes, uncomplicated; Z21 Asymptomatic human immunodeficiency virus [HIV] infection status; H04.123 Dry eye syndrome of bilateral lacrimal glands; R76.11 Nonspecific reaction to tuberculin skin test without active tuberculosis; R76.8 Other specified abnormal immunological findings in serum; Z86.19 Personal history of other infectious and parasitic diseases; Z88.1 Allergy status to other antibiotic agents
CPT/HCPCS: 36415; 71046-TC-FY; 80053; 85027; 86593; 86780; 87529; 87635; 87811

== ENCOUNTER 2023-04-21 10:17 | Inpatient (IN) | payer OTHER ==
[2023-04-21 10:53] VITALS: BMI 22.6
[2023-04-21] MEDS ORDERED: guaiFENesin 600 MG TABLET.ER (FP) PO PRN (16:57)
[2023-04-21] MEDS ORDERED: IBUPROFEN 400 MG TABLET (FP) PO PRN (16:57)
[2023-04-21] MEDS ORDERED: MAGNESIUM HYDROX 2400MG/30ML ORAL SUSPENSION 30 ML CUP PO PRN (16:57)
[2023-04-21] MEDS ORDERED: DICYCLOMINE HCL 10 MG CAPSULE PO PRN (16:57)
[2023-04-21] MEDS ORDERED: ACETAMINOPHEN 325 MG TABLET (FP) PO PRN (16:57)
[2023-04-21] MEDS ORDERED: NALOXONE HCL (KLOXXADO) 8 MG SPRAY NS PRN (16:57)
[2023-04-21] MEDS ORDERED: ONDANSETRON *ODT* 4 MG TABLET SL PRN (16:57)
[2023-04-21] MEDS ORDERED: BISMUTH SUBSALICYLATE 524 MG/30 ML PO PRN (16:57)
[2023-04-21] MEDS ORDERED: MAG HYDROX/AL HYDROX/SIMETH 30 ML UNIT-DOSE CUP PO PRN (16:57)
[2023-04-21] MEDS ORDERED: NALOXONE HCL 0.4 MG/ML VIAL IM PRN (16:57)
[2023-04-21] MEDS ORDERED: POLYETHYLENE GLYCOL (HEALTHYLAX) 3350 17 GM PACKET PO PRN (16:57)
[2023-04-21] MEDS ORDERED: BENZONATATE 200 MG CAPSULE PO PRN (16:57)
[2023-04-21] MEDS ORDERED: chlordiazePOXIDE HCL 25 MG CAPSULE PO PRN (16:57)
[2023-04-21] MEDS ORDERED: BENZOCAINE/MENTHOL (CHLORASEPTIC ) LOZENGE MM PRN (16:57)
[2023-04-21] MEDS ORDERED: LOPERAMIDE HCL 2 MG CAPSULE PO PRN (16:57)
[2023-04-21] MEDS ORDERED: hydrOXYzine PAMOATE 25 MG CAPSULE (FP) PO PRN (16:57)
[2023-04-21] MEDS ORDERED: IBUPROFEN 600 MG TABLET (FP) PO PRN (16:57)
[2023-04-21] MEDS ORDERED: METHOCARBAMOL 500 MG TABLET PO PRN (16:57)
[2023-04-21] MEDS: chlordiazePOXIDE HCL 25 MG CAPSULE PO SCH (22:29)
[2023-04-21] MEDS: MELATONIN 5 MG TABLETS PO SCH (22:29)
[2023-04-21] MEDS: THIAMINE HCL 100 MG TABLET (FP) PO SCH (22:30)
[2023-04-22] MEDS: chlordiazePOXIDE HCL 25 MG CAPSULE PO SCH ×4 (05:55→22:39)
[2023-04-22] MEDS: PRENATAL VITAMINS W/ FOLIC ACID TABLET (FP) PO SCH (10:12)
[2023-04-22] MEDS: valACYclovir HCL 500 MG TABLET (FP) PO SCH (10:13)
[2023-04-22] MEDS: EMTRICITAB/RILPIVIRI/TENOF ALA (ODEFSEY) TABLET PO SCH (11:23)
[2023-04-22] MEDS: CALCIUM (OYSTER SHELL) 500 MG TABLET (FP) PO SCH ×2 (11:23→22:39)
[2023-04-22 13:15] LABS: HEMATOCRIT 36.9 % (32.4-45.2); HEMOGLOBIN 11.8 GM/dL (10.7-15.3); MCH 29.9 pg (25.7-33.7); MCHC 31.9 g/dl (32.0-36.0); MEAN CELL VOLUME 93.9 fl (80-96); MEAN PLT VOLUME 9.3 fl (7.5-11.1); PLATELET COUNT 189 10^3/uL (134-434); RBC 3.93 M/mm3 (3.60-5.2); RDW 13.6 % (11.6-15.6); WHITE BLOOD COUNT 2.9 K/mm3 (4.0-10.0)
[2023-04-22 13:19] LABS: CHLORIDE 111 mmol/L (98-107); POTASSIUM 4.8 mmol/L (3.5-5.1); SODIUM 143 mmol/L (136-145)
[2023-04-22 13:24] LABS: ALBUMIN 2.7 g/dl (3.4-5.0); ANION GAP 4 mmol/L (4-13); CALCIUM 8.5 mg/dL (8.5-10.1); CO2 28 mmol/L (21-32)
[2023-04-22 13:25] LABS: BLOOD UREA NITROGEN 17.9 mg/dL (7-18); GLUCOSE,RANDOM 104 mg/dL (74-106)
[2023-04-22 13:27] LABS: CREATININE 0.9 mg/dL (0.55-1.3); SGOT/AST 23 U/L (15-37)
[2023-04-22 13:28] LABS: BILIRUBIN,TOTAL 0.2 mg/dL (0.2-1); SGPT/ALT 22 U/L (13-61); TOT PROT 6.1 g/dl (6.4-8.2)
[2023-04-22 13:29] LABS: ALK PHOS 93 U/L (45-117)
[2023-04-22] MEDS ORDERED: TETRAHYDROZOLINE HCL EYE DROPS OU PRN (20:41)
[2023-04-22] MEDS: MELATONIN 5 MG TABLETS PO SCH (22:39)
[2023-04-22] MEDS: THIAMINE HCL 100 MG TABLET (FP) PO SCH (22:39)
[2023-04-22] MEDS: VITAMINS A AND D TOPICAL OINTMENT 60 GM TUBE TP SCH (22:41)
[2023-04-23] MEDS: VITAMINS A AND D TOPICAL OINTMENT 60 GM TUBE TP SCH ×5 (00:45→22:39)
[2023-04-23] MEDS: chlordiazePOXIDE HCL 25 MG CAPSULE PO SCH ×4 (05:52→22:38)
[2023-04-23] MEDS: CALCIUM (OYSTER SHELL) 500 MG TABLET (FP) PO SCH ×2 (10:04→22:38)
[2023-04-23] MEDS: valACYclovir HCL 500 MG TABLET (FP) PO SCH (10:04)
[2023-04-23] MEDS: EMTRICITAB/RILPIVIRI/TENOF ALA (ODEFSEY) TABLET PO SCH (10:04)
[2023-04-23] MEDS: PRENATAL VITAMINS W/ FOLIC ACID TABLET (FP) PO SCH (10:05)
[2023-04-23] MEDS: ARTIFICIAL TEARS OPHTHALMIC DROPS OU SCH (22:37)
[2023-04-23] MEDS: MELATONIN 5 MG TABLETS PO SCH (22:38)
[2023-04-23] MEDS: THIAMINE HCL 100 MG TABLET (FP) PO SCH (22:38)
[2023-04-23] MEDS: PATIENT'S OWN MEDICATION (NON-FORMULARY) (Cyclosporine [Restasis] 1 EACH Droperette) OP SCH ×2 (23:26→23:45)
[2023-04-24] MEDS ORDERED: chlordiazePOXIDE HCL 10 MG CAPSULE PO PRN
[2023-04-24] MEDS: chlordiazePOXIDE HCL 10 MG CAPSULE PO SCH ×2 (05:19→10:26)
[2023-04-24] MEDS: VITAMINS A AND D TOPICAL OINTMENT 60 GM TUBE TP SCH ×2 (05:20→10:26)
[2023-04-24 06:00] VITALS: TEMP 97.7
[2023-04-24] MEDS: EMTRICITAB/RILPIVIRI/TENOF ALA (ODEFSEY) TABLET PO SCH (09:33)
[2023-04-24] MEDS: valACYclovir HCL 500 MG TABLET (FP) PO SCH (09:33)
[2023-04-24] MEDS: CALCIUM (OYSTER SHELL) 500 MG TABLET (FP) PO SCH (09:33)
[2023-04-24] MEDS: ARTIFICIAL TEARS OPHTHALMIC DROPS OU SCH (09:33)
[2023-04-24] MEDS: PRENATAL VITAMINS W/ FOLIC ACID TABLET (FP) PO SCH (09:33)
[2023-04-24 09:39] VITALS: BP 130/65; PULSE 76; RESP 19
[2023-04-25] MEDS ORDERED: chlordiazePOXIDE HCL 10 MG CAPSULE PO SCH (05:00)
[2023-04-26] MEDS ORDERED: chlordiazePOXIDE HCL 10 MG CAPSULE PO ONE (05:00)
[2023-04-28] MEDS ORDERED: CHOLECALCIFEROL (VIT D3) 5000 UNITS (125 MCG) CAP PO SCH ×3 (09:15→10:00)
[2023-04-28] MEDS ORDERED: ERGOCALCIFEROL (VIT D2) 50,000 UNIT (1.25 MG) CAPSULE PO SCH (10:00)
[2023-04-29] MEDS ORDERED: ERGOCALCIFEROL (VIT D2) 50,000 UNIT (1.25 MG) CAPSULE PO SCH (10:00)
== END 2023-04-24 09:55 | disposition left against medical advice (07) | DRG 894 ==
LOC: YASAS 10:17 → Y6N 19:56
PROVIDERS: ADMIT Allergy & Immunology; ATTEND Surgery
PROC: HZ2ZZZZ Detoxification Services for Substance Abuse Treatment (ICD-10-PCS; principal; 2023-04-21)
DX: F10.230 Alcohol dependence with withdrawal, uncomplicated (principal); F14.20 Cocaine dependence, uncomplicated; F17.210 Nicotine dependence, cigarettes, uncomplicated; F41.9 Anxiety disorder, unspecified; F32.A Depression, unspecified; Z21 Asymptomatic human immunodeficiency virus [HIV] infection status; B00.9 Herpesviral infection, unspecified; Z20.822 Contact with and (suspected) exposure to COVID-19; R63.4 Abnormal weight loss; Z68.22 Body mass index [BMI] 22.0-22.9, adult; Z86.19 Personal history of other infectious and parasitic diseases; Z86.11 Personal history of tuberculosis; Z88.1 Allergy status to other antibiotic agents; F91.8 Other conduct disorders; Z91.199 Patient's noncompliance with other medical treatment and regimen due to unspecified reason
CPT/HCPCS: 36415; 80053; 80307; 85027; 86593; 86780; 87635

== ENCOUNTER 2023-07-10 09:50 | Inpatient (IN) | payer OTHER ==
[2023-07-10 10:16] VITALS: BMI 23.7
[2023-07-10] MEDS ORDERED: METHOCARBAMOL 500 MG TABLET PO PRN (11:53)
[2023-07-10] MEDS ORDERED: IBUPROFEN 400 MG TABLET (FP) PO PRN (11:53)
[2023-07-10] MEDS ORDERED: ACETAMINOPHEN 325 MG TABLET (FP) PO PRN (11:53)
[2023-07-10] MEDS ORDERED: hydrOXYzine PAMOATE 25 MG CAPSULE (FP) PO PRN (11:53)
[2023-07-10] MEDS ORDERED: NALOXONE HCL (KLOXXADO) 8 MG SPRAY NS PRN (11:53)
[2023-07-10] MEDS ORDERED: ONDANSETRON *ODT* 4 MG TABLET SL PRN (11:53)
[2023-07-10] MEDS ORDERED: guaiFENesin 600 MG TABLET.ER (FP) PO PRN (11:53)
[2023-07-10] MEDS ORDERED: POLYETHYLENE GLYCOL (HEALTHYLAX) 3350 17 GM PACKET PO PRN (11:53)
[2023-07-10] MEDS ORDERED: LOPERAMIDE HCL 2 MG CAPSULE PO PRN (11:53)
[2023-07-10] MEDS ORDERED: BENZONATATE 200 MG CAPSULE PO PRN (11:53)
[2023-07-10] MEDS ORDERED: NALOXONE HCL 0.4 MG/ML VIAL IM PRN (11:53)
[2023-07-10] MEDS ORDERED: IBUPROFEN 600 MG TABLET (FP) PO PRN (11:53)
[2023-07-10] MEDS ORDERED: BISMUTH SUBSALICYLATE 262 MG/15 ML BTL PO PRN (11:53)
[2023-07-10] MEDS ORDERED: DICYCLOMINE HCL 10 MG CAPSULE PO PRN (11:53)
[2023-07-10] MEDS ORDERED: MAG HYDROX/AL HYDROX/SIMETH 30 ML UNIT-DOSE CUP PO PRN (11:53)
[2023-07-10] MEDS ORDERED: MAGNESIUM HYDROX 2400MG/30ML ORAL SUSPENSION 30 ML CUP PO PRN (11:53)
[2023-07-10] MEDS ORDERED: chlordiazePOXIDE HCL 25 MG CAPSULE ONE (12:18)
[2023-07-10] MEDS: chlordiazePOXIDE HCL 25 MG CAPSULE PO PRN (12:20)
[2023-07-10] MEDS ORDERED: IBUPROFEN 600 MG TABLET (FP) PO ONE (12:57)
[2023-07-10] MEDS: valACYclovir HCL 500 MG TABLET (FP) PO SCH (14:20)
[2023-07-10] MEDS: chlordiazePOXIDE HCL 25 MG CAPSULE PO SCH (17:17)
[2023-07-10] MEDS: DOXYCYCLINE HYCLATE 100 MG TABLET PO SCH (18:57)
[2023-07-10] MEDS: THIAMINE HCL 100 MG TABLET (FP) PO SCH (22:45)
[2023-07-10] MEDS: MELATONIN 5 MG TABLETS PO SCH (22:45)
[2023-07-11] MEDS: EMTRICITAB/RILPIVIRI/TENOF ALA (ODEFSEY) TABLET PO SCH (07:28)
[2023-07-11] MEDS: CALCIUM 250MG/VIT-D 125 UNITS 1 COMBO TABLET PO SCH (10:13)
[2023-07-11] MEDS: PRENATAL VITAMINS W/ FOLIC ACID TABLET (FP) PO SCH (10:13)
[2023-07-11] MEDS: PATIENT'S OWN MEDICATION (NON-FORMULARY) (Cyclosporine [Restasis] 1 EACH Droperette) OP SCH (11:37)
[2023-07-11 12:00] LABS: HEMATOCRIT 39.7 % (32.4-45.2); HEMOGLOBIN 13.1 GM/dL (10.7-15.3); MCH 30.7 pg (25.7-33.7); MEAN CELL VOLUME 92.9 fl (80-96); PLATELET COUNT 179 10^3/uL (134-434); RBC 4.28 M/mm3 (3.60-5.2); RDW 14.2 % (11.6-15.6); WHITE BLOOD COUNT 3.3 K/mm3 (4.0-10.0)
[2023-07-11] MEDS: VITAMINS A AND D TOPICAL OINTMENT TP SCH (12:04)
[2023-07-11 12:06] LABS: POTASSIUM 4.2 mmol/L (3.5-5.1)
[2023-07-11 12:14] LABS: ALBUMIN 3.7 g/dl (3.4-5.0); BLOOD UREA NITROGEN 20.9 mg/dL (7-18)
[2023-07-11 12:15] LABS: BILIRUBIN,TOTAL 0.4 mg/dL (0.2-1); TOT PROT 7.6 g/dl (6.4-8.2)
[2023-07-11 12:16] LABS: CALCIUM 9.2 mg/dL (8.5-10.1)
[2023-07-12] MEDS: chlordiazePOXIDE HCL 25 MG CAPSULE PO SCH (05:16)
[2023-07-13] MEDS ORDERED: chlordiazePOXIDE HCL 10 MG CAPSULE PO PRN
[2023-07-13] MEDS: chlordiazePOXIDE HCL 10 MG CAPSULE PO SCH (05:24)
[2023-07-14] MEDS: guaiFENesin/D-METHORPHAN HB 10 ML UNIT-DOSE CUPS PO PRN (03:14)
[2023-07-14] MEDS: chlordiazePOXIDE HCL 10 MG CAPSULE PO SCH (06:00)
[2023-07-14] MEDS: BENZOCAINE/MENTHOL (CHLORASEPTIC ) LOZENGE MM PRN (22:30)
[2023-07-15] MEDS: chlordiazePOXIDE HCL 10 MG CAPSULE PO ONE (05:35)
[2023-07-15 09:16] VITALS: BP 141/80; PULSE 85; RESP 18; TEMP 97.6
== END 2023-07-15 09:15 | disposition home or self-care (01) | DRG 897 ==
LOC: YASAS 09:50 → Y6N 12:08
PROVIDERS: ADMIT Allergy & Immunology; ATTEND Surgery
PROC: HZ2ZZZZ Detoxification Services for Substance Abuse Treatment (ICD-10-PCS; principal; 2023-07-10)
DX: F10.230 Alcohol dependence with withdrawal, uncomplicated (principal); F14.20 Cocaine dependence, uncomplicated; F17.210 Nicotine dependence, cigarettes, uncomplicated; F32.A Depression, unspecified; Z21 Asymptomatic human immunodeficiency virus [HIV] infection status; A74.9 Chlamydial infection, unspecified; I10 Essential (primary) hypertension; Z86.11 Personal history of tuberculosis; Z86.19 Personal history of other infectious and parasitic diseases
CPT/HCPCS: 36415; 80053; 80305; 80307; 85027; 86593; 86780; 93005; 93010

== ENCOUNTER 2023-12-09 14:20 | Inpatient (IN) | payer OTHER ==
[2023-12-09] MEDS ORDERED: guaiFENesin 600 MG TABLET.ER (FP) PO PRN (15:36)
[2023-12-09] MEDS ORDERED: ACETAMINOPHEN 325 MG TABLET (FP) PO PRN (15:36)
[2023-12-09] MEDS ORDERED: IBUPROFEN 400 MG TABLET (FP) PO PRN (15:36)
[2023-12-09] MEDS ORDERED: ONDANSETRON *ODT* 4 MG TABLET SL PRN (15:36)
[2023-12-09] MEDS ORDERED: BENZOCAINE/MENTHOL (CHLORASEPTIC ) LOZENGE MM PRN (15:36)
[2023-12-09] MEDS ORDERED: MAGNESIUM HYDROX 2400MG/30ML ORAL SUSPENSION 30 ML CUP PO PRN (15:36)
[2023-12-09] MEDS ORDERED: POLYETHYLENE GLYCOL (HEALTHYLAX) 3350 17 GM PACKET PO PRN (15:36)
[2023-12-09] MEDS ORDERED: IBUPROFEN 600 MG TABLET (FP) PO PRN (15:36)
[2023-12-09] MEDS ORDERED: BENZONATATE 200 MG CAPSULE PO PRN (15:36)
[2023-12-09] MEDS ORDERED: NICOTINE POLACRILEX 2 MG GUM BUC PRN (15:36)
[2023-12-09] MEDS ORDERED: LOPERAMIDE HCL 2 MG CAPSULE PO PRN (15:36)
[2023-12-09] MEDS ORDERED: NICOTINE POLACRILEX 2 MG LOZENGE BC PRN (15:36)
[2023-12-09 15:49] VITALS: BMI 24.0
[2023-12-09] MEDS: diazePAM 5 MG TABLET PO PRN (17:13)
[2023-12-09] MEDS: VITAMINS A AND D TOPICAL OINTMENT TP SCH (18:08)
[2023-12-09] MEDS: THIAMINE 100 MG TABLET PO SCH (22:20)
[2023-12-09] MEDS: diazePAM 5 MG TABLET PO SCH (22:20)
[2023-12-09] MEDS: MELATONIN 5 MG TABLETS PO SCH (22:20)
[2023-12-10] MEDS: PRENATAL VITAMINS W/ FOLIC ACID TABLET (FP) PO SCH (10:02)
[2023-12-10] MEDS: valACYclovir HCL 500 MG TABLET (FP) PO SCH (10:02)
[2023-12-10 10:26] LABS: HEMATOCRIT 40.8 % (32.4-45.2); HEMOGLOBIN 13.3 GM/dL (10.7-15.3); MCH 30.5 pg (25.7-33.7); MCHC 32.4 g/dl (32.0-36.0); MEAN CELL VOLUME 93.9 fl (80-96); MEAN PLT VOLUME 9.4 fl (7.5-11.1); PLATELET COUNT 177 10^3/uL (134-434); RBC 4.35 M/mm3 (3.60-5.2); RDW 14.3 % (11.6-15.6); WHITE BLOOD COUNT 3.8 K/mm3 (4.0-10.0)
[2023-12-10 10:54] LABS: CHLORIDE 106 mmol/L (98-107); POTASSIUM 5.5 mmol/L (3.5-5.1); SODIUM 140 mmol/L (136-145)
[2023-12-10] MEDS: EMTRICITAB/RILPIVIRI/TENOF ALA (ODEFSEY) TABLET PO SCH (10:55)
[2023-12-10 10:56] LABS: ALBUMIN 3.3 g/dl (3.4-5.0); ANION GAP 9 mmol/L (4-13); BLOOD UREA NITROGEN 26.8 mg/dL (7-18); CALCIUM 9.3 mg/dL (8.5-10.1); CO2 25 mmol/L (21-32); GLUCOSE,RANDOM 82 mg/dL (74-106)
[2023-12-10 10:59] LABS: SGOT/AST 45 U/L (15-37); SGPT/ALT 30 U/L (13-61)
[2023-12-10 11:00] LABS: CREATININE 0.9 mg/dL (0.55-1.3)
[2023-12-10 11:01] LABS: BILIRUBIN,TOTAL 0.8 mg/dL (0.2-1); TOT PROT 7.3 g/dl (6.4-8.2)
[2023-12-10 11:03] LABS: ALK PHOS 97 U/L (45-117)
[2023-12-10] MEDS: CALCIUM 500MG/VIT-D 200 UNITS COMBO TABLET (FP) PO SCH (17:08)
[2023-12-11] MEDS: diazePAM 5 MG TABLET PO SCH (05:50)
[2023-12-11] MEDS: LORazepam 1 MG TABLET PO SCH (09:15)
[2023-12-11] MEDS: CYCLOSPORINE 0.05% OU SCH (10:41)
[2023-12-11] MEDS: MAG HYDROX/AL HYDROX/SIMETH 30 ML UNIT-DOSE CUP PO PRN (20:25)
[2023-12-11] MEDS: hydrOXYzine PAMOATE 25 MG CAPSULE (FP) PO PRN (22:26)
[2023-12-11] MEDS: BISMUTH SUBSALICYLATE 262 MG/15 ML BTL PO PRN (22:27)
[2023-12-12] MEDS ORDERED: diazePAM 5 MG TABLET PO SCH (06:00)
[2023-12-12] MEDS: LORazepam 0.5 MG TABLET PO SCH (09:35)
[2023-12-12] MEDS: SODIUM POLYSTYRENE SULFONATE 15 GM/60 ML BOTTLE PO ONE ×2 (18:41→20:41)
[2023-12-12 20:52] VITALS: RESP 16
[2023-12-13] MEDS ORDERED: diazePAM 5 MG TABLET PO ONE (06:00)
[2023-12-13] MEDS ORDERED: ACETAMINOPHEN 325 MG TABLET (FP) PO PRN (09:01)
[2023-12-13] MEDS: SIMETHICONE 80 MG TAB.CHEW (FP) PO PRN (09:03)
[2023-12-13] MEDS: LORazepam 0.5 MG TABLET PO ONE (09:06)
[2023-12-13 10:40] VITALS: BP 135/71; PULSE 63; TEMP 97.8
== END 2023-12-13 13:04 | disposition other institution (70) | DRG 897 ==
LOC: YASAS 14:20 → Y6N 15:57
PROVIDERS: ADMIT Allergy & Immunology; ATTEND Surgery
PROC: HZ2ZZZZ Detoxification Services for Substance Abuse Treatment (ICD-10-PCS; principal; 2023-12-09)
DX: F10.230 Alcohol dependence with withdrawal, uncomplicated (principal); F14.20 Cocaine dependence, uncomplicated; F12.20 Cannabis dependence, uncomplicated; F17.210 Nicotine dependence, cigarettes, uncomplicated; F41.9 Anxiety disorder, unspecified; F32.A Depression, unspecified; Z21 Asymptomatic human immunodeficiency virus [HIV] infection status; G47.00 Insomnia, unspecified; I10 Essential (primary) hypertension; Z79.899 Other long term (current) drug therapy; Z86.11 Personal history of tuberculosis; Z86.19 Personal history of other infectious and parasitic diseases; Z88.1 Allergy status to other antibiotic agents
CPT/HCPCS: 36415; 71046-TC-FY; 80053; 80305; 80307; 85027; 86593; 86780; 87491; 87591; 87661; 87811

== ENCOUNTER 2023-12-13 13:17 | Inpatient (IN) | payer OTHER ==
[2023-12-13] MEDS ORDERED: ACETAMINOPHEN 325 MG TABLET (FP) PO PRN (13:36)
[2023-12-13] MEDS ORDERED: IBUPROFEN 600 MG TABLET (FP) PO PRN (13:36)
[2023-12-13] MEDS ORDERED: POLYETHYLENE GLYCOL (HEALTHYLAX) 3350 17 GM PACKET PO PRN (13:36)
[2023-12-13] MEDS ORDERED: NALOXONE HCL 0.4 MG/ML VIAL IVPUSH PRN (13:36)
[2023-12-13] MEDS ORDERED: BENZOCAINE/MENTHOL (CHLORASEPTIC ) LOZENGE MM PRN (13:36)
[2023-12-13] MEDS ORDERED: NALOXONE (NARCAN) HCL 4 MG/0.1 ML SPRAY NS PRN (13:36)
[2023-12-13] MEDS ORDERED: guaiFENesin 600 MG TABLET.ER (FP) PO PRN (13:36)
[2023-12-13] MEDS ORDERED: BENZONATATE 200 MG CAPSULE PO PRN (13:36)
[2023-12-13] MEDS ORDERED: METHOCARBAMOL 500 MG TABLET PO PRN (13:36)
[2023-12-13] MEDS ORDERED: IBUPROFEN 400 MG TABLET (FP) PO PRN (13:36)
[2023-12-13] MEDS ORDERED: MAGNESIUM HYDROX 2400MG/30ML ORAL SUSPENSION 30 ML CUP PO PRN (13:36)
[2023-12-13] MEDS: NICOTINE 7 MG/24 HOURS TOPICAL PATCH TD SCH (14:46)
[2023-12-13] MEDS: ERGOCALCIFEROL (VIT D2) 50,000 UNIT (1.25 MG) CAPSULE PO SCH (15:54)
[2023-12-13] MEDS: CALCIUM 500MG/VIT-D 200 UNITS COMBO TABLET (FP) PO SCH (17:09)
[2023-12-13] MEDS: SIMETHICONE 80 MG TAB.CHEW (FP) PO PRN (18:48)
[2023-12-13] MEDS: MAG HYDROX/AL HYDROX/SIMETH 30 ML UNIT-DOSE CUP PO PRN (20:47)
[2023-12-13] MEDS: MELATONIN 5 MG TABLETS PO SCH (21:35)
[2023-12-13] MEDS: THIAMINE 100 MG TABLET PO SCH (21:36)
[2023-12-13] MEDS: CYCLOSPORINE OU SCH (21:40)
[2023-12-14] MEDS: EMTRICITAB/RILPIVIRI/TENOF ALA (ODEFSEY) TABLET PO SCH (07:13)
[2023-12-14] MEDS: valACYclovir HCL 500 MG TABLET (FP) PO SCH (10:12)
[2023-12-14] MEDS: PRENATAL VITAMINS W/ FOLIC ACID TABLET (FP) PO SCH (10:12)
[2023-12-14] MEDS: ERGOCALCIFEROL (VIT D2) 50,000 UNIT (1.25 MG) CAPSULE PO SCH (10:13)
[2023-12-14] MEDS: LOPERAMIDE HCL 2 MG CAPSULE PO PRN (20:57)
[2023-12-15] MEDS: hydrOXYzine PAMOATE 25 MG CAPSULE (FP) PO PRN (21:37)
[2023-12-16] MEDS: VITAMINS A AND D TOPICAL OINTMENT TP SCH (19:00)
[2023-12-17] MEDS: CALCIUM 500MG/VIT-D 200 UNITS COMBO TABLET (FP) PO SCH (10:14)
[2023-12-18] MEDS: EMTRICITAB/RILPIVIRI/TENOF ALA (ODEFSEY) TABLET PO SCH (07:52)
[2023-12-19] MEDS: VITAMINS A AND D TOPICAL OINTMENT TP PRN (21:16)
[2023-12-20] MEDS: SIMETHICONE 80 MG TAB.CHEW (FP) PO PRN (19:05)
[2023-12-26 07:10] VITALS: RESP 18; TEMP 97.6
[2023-12-26 11:44] VITALS: BP 118/69; PULSE 69
== END 2023-12-26 09:53 | disposition home or self-care (01) | DRG 895 ==
LOC: YASAS 13:17 → Y5N 13:19
PROVIDERS: ADMIT Allergy & Immunology; ATTEND Psychiatry & Neurology Pain Medicine
PROC: HZ42ZZZ Group Counseling for Substance Abuse Treatment, Cognitive-Behavioral (ICD-10-PCS; principal; 2023-12-13)
DX: F10.20 Alcohol dependence, uncomplicated (principal); F14.20 Cocaine dependence, uncomplicated; E87.0 Hyperosmolality and hypernatremia; F12.20 Cannabis dependence, uncomplicated; F17.210 Nicotine dependence, cigarettes, uncomplicated; F41.9 Anxiety disorder, unspecified; F32.A Depression, unspecified; Z21 Asymptomatic human immunodeficiency virus [HIV] infection status; G47.00 Insomnia, unspecified; I10 Essential (primary) hypertension; A60.00 Herpesviral infection of urogenital system, unspecified; Z86.19 Personal history of other infectious and parasitic diseases; Z86.11 Personal history of tuberculosis; Z88.1 Allergy status to other antibiotic agents
CPT/HCPCS: 36415; 86803

== ENCOUNTER 2024-12-09 10:14 | Inpatient (IN) | payer OTHER ==
[2024-12-09 10:46] VITALS: BMI 24.2
[2024-12-09] MEDS ORDERED: MAGNESIUM HYDROX 2400MG/30ML ORAL SUSPENSION 30 ML CUP PO PRN (11:25)
[2024-12-09] MEDS ORDERED: POLYETHYLENE GLYCOL (HEALTHYLAX) 3350 17 GM PACKET PO PRN (11:25)
[2024-12-09] MEDS ORDERED: NICOTINE POLACRILEX 2 MG LOZENGE BC PRN (11:25)
[2024-12-09] MEDS ORDERED: ONDANSETRON *ODT* 4 MG TABLET SL PRN (11:25)
[2024-12-09] MEDS ORDERED: IBUPROFEN 400 MG TABLET (FP) PO PRN (11:25)
[2024-12-09] MEDS ORDERED: NALOXONE (NARCAN) HCL 4 MG/0.1 ML SPRAY NS PRN (11:25)
[2024-12-09] MEDS ORDERED: NICOTINE POLACRILEX 2 MG GUM BUC PRN (11:25)
[2024-12-09] MEDS ORDERED: guaiFENesin 600 MG TABLET.ER (FP) PO PRN (11:25)
[2024-12-09] MEDS ORDERED: IBUPROFEN 600 MG TABLET (FP) PO PRN (11:25)
[2024-12-09] MEDS ORDERED: BENZONATATE 200 MG CAPSULE PO PRN (11:25)
[2024-12-09] MEDS ORDERED: BISMUTH SUBSALICYLATE 524 MG/30 ML PO PRN (11:25)
[2024-12-09] MEDS ORDERED: BENZOCAINE/MENTHOL (CHLORASEPTIC ) LOZENGE MM PRN (11:25)
[2024-12-09] MEDS ORDERED: ACETAMINOPHEN 325 MG TABLET (FP) PO PRN (11:25)
[2024-12-09] MEDS: VITAMINS A AND D TOPICAL OINTMENT TP SCH (12:42)
[2024-12-09] MEDS: MELATONIN 5 MG TABLETS PO SCH (22:33)
[2024-12-09] MEDS: THIAMINE 100 MG TABLET PO SCH (22:33)
[2024-12-09] MEDS: CYCLOSPORINE 0.05% OU SCH (22:34)
[2024-12-10] MEDS: CALCIUM 500MG/VIT-D 200 UNITS COMBO TABLET (FP) PO SCH (09:47)
[2024-12-10] MEDS: PRENATAL VITAMINS W/ FOLIC ACID TABLET (FP) PO SCH (09:47)
[2024-12-10] MEDS: valACYclovir HCL 500 MG TABLET (FP) PO SCH (09:47)
[2024-12-10 11:00] LABS: MCHC 32.5 g/dl (32.2-35.5); MEAN CELL VOLUME 92.3 fl (79.4-94.8); MEAN PLT VOLUME 11.0 fl (9.4-12.3); RDW 13.5 % (12.4-16.6)
[2024-12-10 11:09] LABS: GLUCOSE,RANDOM 99.0 mg/dL (74-106); TOT PROT 6.9 g/dl (6.4-8.2)
[2024-12-10 11:12] LABS: ALK PHOS 96.0 U/L (40-150)
[2024-12-10 11:14] LABS: SGOT/AST 59.0 U/L (5-34); SGPT/ALT 42.0 U/L (0-55)
[2024-12-10 11:15] LABS: CREATININE 0.84 mg/dL (0.55-1.3)
[2024-12-10 11:31] LABS: CO2 25.0 mmol/L (21-32)
[2024-12-10 11:35] LABS: SYPHILIS W/ RPR CONF REACTIVE (NONREACTIVE)
[2024-12-10] MEDS: EMTRICITAB/RILPIVIRI/TENOF ALA (ODEFSEY) TABLET PO SCH (11:46)
[2024-12-10 13:50] LABS: RPR REFLEX REACTIVE 1:1 (NONREACTIVE)
[2024-12-11] MEDS: SIMETHICONE 80 MG TAB.CHEW (FP) PO PRN (17:55)
[2024-12-11] MEDS: MAG HYDROX/AL HYDROX/SIMETH 30 ML UNIT-DOSE CUP PO PRN (20:51)
[2024-12-12] MEDS: LOPERAMIDE HCL 2 MG CAPSULE PO PRN (07:37)
[2024-12-13 09:31] VITALS: BP 121/62; PULSE 66; RESP 16; TEMP 97.8
== END 2024-12-13 09:20 | disposition home or self-care (01) | DRG 897 ==
LOC: YASAS 10:14 → Y6N 12:59
PROVIDERS: ADMIT Allergy & Immunology; ATTEND Allergy & Immunology
PROC: HZ2ZZZZ Detoxification Services for Substance Abuse Treatment (ICD-10-PCS; principal; 2024-12-09)
DX: F10.230 Alcohol dependence with withdrawal, uncomplicated (principal); F14.20 Cocaine dependence, uncomplicated; F17.210 Nicotine dependence, cigarettes, uncomplicated; F32.A Depression, unspecified; F41.9 Anxiety disorder, unspecified; Z21 Asymptomatic human immunodeficiency virus [HIV] infection status; I10 Essential (primary) hypertension; H16.209 Unspecified keratoconjunctivitis, unspecified eye; N89.8 Other specified noninflammatory disorders of vagina; Z86.19 Personal history of other infectious and parasitic diseases; Z88.1 Allergy status to other antibiotic agents
CPT/HCPCS: 36415; 80053; 80307; 85027; 86593; 86780